=== PATIENT | male | born 1960 | race Caucasian/White ===

== ENCOUNTER 2017-12-28 12:57 | Inpatient (IN) | payer OTHER ==
[2017-12-28 14:05] VITALS: BMI 29.2
--- NOTE | 2017-12-28 16:28 | HP ---
COWS - Scale Resting Pulse: 0= [place] 80 or Below Sweatin=Flushed/Facial Moisture Restless Observation: 0= Sits Still Pupil Size: 0= Normal to Room Light Bone or Joint Aches: 2= Severe Diffuse Aches Runny Nose/ Eye Tearin= Nasal Congestion GI Upset > 30mins: 2= Nausea/Diarrhea Tremor Observation: 1= Tremor [place], Not Seen Yawning Observation: 1= 1-2x During Session Anxiety or Irritability: 1=Feels Anxious/Irritable Goose Flesh Skin: 3=Piloerection COWS Score: 13 [facility]mission [facility] Chief Complaint: Heroin Withdrawal symptoms. Allergies/Adverse Reactions: Allergies Allergy/AdvReac Type Severity Reaction Status Date / Time Penicillins Allergy Unknown Verified 11/12/17 10:45 History of Present Illness: Patient presents for Heroin withdrawal symptoms. Last detox here at [facility] 10/2017. Started using Heroin in past year. Uses up to 10 bags daily. Last time he used was this morning at 5 am. Has history of Hep C and Gerd. Hep C not treated. Reports feeling depressed and anxious. Denies SI/HI and suicide attempts. Exam Limitations: No Limitations - Ebola screening Have you traveled outside of the country in the last 21 days: No Have you had contact with anyone from an Ebola affected area: No Have you been sick,other than usual withdrawal symptoms: No Do you have a fever: No - Review of Systems Constitutional: Night Sweats, Changes in sleep, Weight Stable EENT: reports: Tearing, Nose Congestion Respiratory: reports: No Symptoms reported Cardiac: reports: No Symptoms Reported GI: reports: Diarrhea, Nausea, Poor Fluid Intake, Indigestion, Abdominal cramping : reports: No Symptoms Reported Musculoskeletal: reports: Back Pain, Joint Pain, Muscle Pain Integumentary: reports: Sweating Neuro: reports: Headache, Tremors Endocrine: reports: No Symptoms Reported Hematology: reports: No Symptoms Reported Psychiatric: reports: Orientated x3, Anxious, Depressed Patient History - Patient Medical History Hx Anemia: No Hx Asthma: No Hx Chronic Obstructive Pulmonary Disease (COPD): No Hx Cancer: No Hx Cardiac Disorders: No Hx Congestive Heart Failure: No Hx Hypertension: No Hx Hypercholesterolemia: No Hx Pacemaker: No HX Cerebrovascular Accident: No Hx Seizures: No Hx Dementia: No Hx Diabetes: No Hx Gastrointestinal Disorders: Yes (GERD) Hx Liver Disease: No Hx Genitourinary Disorders: No Hx Sexually Transmitted Disorders: No Hx Renal Disease (ESRD): No Hx Thyroid Disease: No Hx Human Immunodeficiency Virus (HIV): No (Negative, 2018) Hx Hepatitis C: Yes (not treated) Hx Depression: Yes Hx Suicide Attempt: No Hx Bipolar Disorder: No Hx Schizophrenia: No - Patient Surgical History Past Surgical History: Yes Hx Neurologic Surgery: No Hx Cataract Extraction: No Hx Cardiac Surgery: No Hx Lung Surgery: No Hx Breast Surgery: No Hx Breast Biopsy: No Hx Abdominal Surgery: No Hx Appendectomy: No Hx Cholecystectomy: No Hx Genitourinary Surgery: No Hx Orthopedic Surgery: No Other Surgical History: bilateral inguinal hernia repair.IN 2011 [facility] Anesthesia Reaction: No - PPD History Previous Implant?: Yes Documented Results: Negative w/proof Date: 11/14/17 PPD to be Administered?: No - Smoking Cessation Smoking history: Current every day smoker Have you smoked in the past 12 months: Yes Aproximately how many cigarettes per day: 40 Hx Chewing Tobacco Use: No Initiated information on smoking cessation: Yes 'Breaking Loose' booklet given: 12/28/17 - Substance & Tx. History Hx Alcohol Use: No Hx Substance Use: Yes Substance Use Type: Heroin Hx Substance Use Treatment: Yes - Substances Abused Heroin Route: Inhalation Frequency: Daily Amount used: 10 bags Age of first use: 57 Date of Last Use: 12/28/17 Family Disease History - Family Disease History Family Disease History: Diabetes: Mother (), Other: Father (alive, history alcoholism) Admission Physical Exam BHS - Vital Signs Vital Signs: Vital Signs - 24 hr 12/28/17 13:58 Temperature 97.4 F L Pulse Rate 66 Respiratory 20 Rate Blood Pressure 117/69 - Physical General Appearance: Yes: No Apparent Distress, Sweating, Anxious HEENTM: Yes: EOMI, Hearing grossly Normal, Normal ENT Inspection, Normocephalic , Normal Voice, RASHMI, Pharynx Normal, Nasal Congestion Respiratory: Yes: Chest Non-Tender, Lungs Clear, Normal Breath Sounds, No Respiratory Distress, No Accessory Muscle Use Neck: Yes: No masses,lesions,Nodules, Supple, Trachea in good position Breast: Yes: Breast Exam Deferred Cardiology: Yes: Within Normal Limits, Regular Rhythm, Regular Rate, S1, S2 Abdominal: Yes: Within Normal Limits, Normal Bowel Sounds, Non Tender, Soft Genitourinary: Yes: Within Normal Limits Back: Yes: Within Normal Limits, Normal Inspection Musculoskeletal: Yes: full range of Motion, Gait Steady, Back pain, Muscle Pain Extremities: Yes: Normal Capillary Refill, Normal Inspection, Normal Range of Motion, Tremors, Swelling Neurological: Yes: manager spanish II-XII NML intact, Fully Oriented, Alert, Motor Strength 5/5, Normal Response, Depressed Affect Integumentary: Yes: Normal Color, Warm, Moist Lymphatic: Yes: Within Normal Limits Cleared for Admission [facility] - Detox or Rehab [facility] Level of Care: Medically Managed Detox Regimen/Protocol: Methadone [facility] Breath Alcohol Content Breath Alcohol Content: 0 Urine Drug Screen - Results Drug Screen Negative: No Urine Drug Screen Results: OPI-Opiates, BZO-Benzodiazepines, MTD-Methadone, OXY- Oxycodone
[2017-12-28] MEDS ORDERED: LOPERAMIDE HCL 2 MG CAPSULE PO PRN (16:41)
[2017-12-28] MEDS ORDERED: MAGNESIUM CITRATE 300 ML BOTTLE PO PRN (16:41)
[2017-12-28] MEDS ORDERED: MAGNESIUM HYDROX 2400MG/30ML ORAL SUSPENSION 30 ML CUP PO PRN (16:41)
[2017-12-28] MEDS ORDERED: guaiFENesin/D-METHORPHAN HB 10 ML UNIT-DOSE CUPS PO PRN (16:45)
[2017-12-28] MEDS ORDERED: ACETAMINOPHEN 325 MG TABLET (FP) PO PRN (16:45)
[2017-12-28] MEDS ORDERED: MAG HYDROX/AL HYDROX/SIMETH 30 ML UNIT-DOSE CUP PO PRN (16:46)
[2017-12-28] MEDS ORDERED: MENTHOL/PHENOL 1 EACH UD MM PRN (16:47)
[2017-12-28] MEDS ORDERED: P-EPHED 60MG/TRIPROLIDI 2.5MG TABLET PO PRN (16:47)
[2017-12-28] MEDS ORDERED: METHADONE HCL 10 MG TABLET (FOR DETOX USE ONLY) PO ONE ×2 (17:00→23:00)
[2017-12-28] MEDS: diazePAM 5 MG TABLET PO PRN ×2 (18:25→22:27)
[2017-12-28] MEDS: NICOTINE POLACRILEX 2 MG GUM BUC PRN ×2 (18:32→21:18)
[2017-12-28] MEDS ORDERED: MELATONIN 5 MG TABLETS PO PRN (22:00)
[2017-12-28] MEDS: THIAMINE HCL 100 MG TABLET (FP) PO SCH (22:26)
[2017-12-29] MEDS: diazePAM 5 MG TABLET PO PRN ×3 (05:16→22:48)
[2017-12-29] MEDS: NICOTINE POLACRILEX 2 MG GUM BUC PRN ×2 (05:19→13:51)
--- NOTE | 2017-12-29 09:22 | EKG ---
Test Reason : Blood Pressure : / mmHG Vent. Rate : 059 BPM Atrial Rate : 059 BPM P-R Int : 154 ms QRS Dur : 086 ms QT Int : 434 ms P-R-T Axes : 066 042 040 degrees QTc Int : 429 ms SINUS BRADYCARDIA OTHERWISE NORMAL ECG WHEN COMPARED WITH ECG OF 12-NOV-2017 13:14, NO SIGNIFICANT CHANGE WAS FOUND Confirmed by SOLA ORTEZ MD ([id number]) on 12/29/2017 9:22:28 AM Referred By: Confirmed By:SOLA ORTEZ MD
[2017-12-29] MEDS ORDERED: METHADONE HCL 10 MG TABLET (FOR DETOX USE ONLY) PO ONE (10:00)
[2017-12-29 10:11] LABS: URINE APPEARANCE CLEAR; URINE BILIRUBIN NEGATIVE (<2.0 mg/dL); URINE COLOR YELLOW; URINE GLUCOSE (UA) NEGATIVE (NEGATIVE); URINE KETONE NEGATIVE (NEGATIVE); URINE LEUK ESTERASE NEGATIVE (NEGATIVE); URINE NITRITE NEGATIVE (NEGATIVE); URINE PROTEIN NEGATIVE (NEGATIVE); URINE UROBILINOGEN 4.0 E.U/dl mg/dL (0.2-1.0)
[2017-12-29] MEDS: PANTOPRAZOLE 40 MG TABLET (FP) PO SCH (10:17)
[2017-12-29] MEDS: PRENATAL VITAMINS W/ FOLIC ACID TABLET (FP) PO SCH (10:17)
[2017-12-29] MEDS: NICOTINE 21 MG/24 HOURS TOPICAL PATCH TD SCH ×2 (10:18)
[2017-12-29 10:19] LABS: HEMATOCRIT 39.8 % (35.4-49); HEMOGLOBIN 14.2 GM/dL (11.7-16.9); MCH 30.4 pg (25.7-33.7); MCHC 35.8 g/dl (32.0-35.9); MEAN PLT VOLUME 8.4 fl (7.5-11.1); PLATELET COUNT 193 K/MM3 (134-434); RBC 4.68 M/mm3 (4.00-5.60); RDW 12.9 % (11.9-15.9)
[2017-12-29 10:23] LABS: EPI CELLS RARE /HPF (FEW); URINE HYALINE CAST 1 /lpf; URINE MUCUS FEW
[2017-12-29 10:33] LABS: CHLORIDE 106 mmol/L (98-107); POTASSIUM 3.9 mmol/L (3.5-5.1); SODIUM 141 mmol/L (136-145)
[2017-12-29 10:39] LABS: ALBUMIN 3.6 g/dl (3.4-5.0); ALK PHOS 98 U/L (45-117); ANION GAP 5 (8-16); BILIRUBIN,TOTAL 0.9 mg/dL (0.2-1.0); BLOOD UREA NITROGEN 13 mg/dL (7-18); CALCIUM 8.8 mg/dL (8.5-10.1); CO2 30 mmol/L (21-32); CREATININE 0.9 mg/dL (0.7-1.3); GLUCOSE,RANDOM 102 mg/dL (74-106); SGOT/AST 23 U/L (15-37); SGPT/ALT 48 U/L (12-78); TOT PROT 7.1 g/dl (6.4-8.2)
[2017-12-29] MEDS: hydrOXYzine PAMOATE 50 MG CAPSULE (FP) PO PRN (13:51)
[2017-12-29] MEDS ORDERED: CYCLOBENZAPRINE HCL 10 MG TABLET (FP) PO ONE (13:54)
[2017-12-29] MEDS ORDERED: cloNIDine HCL 0.1 MG TABLET PO ONE (13:55)
--- NOTE | 2017-12-29 15:16 | PN ---
S COWS - Scale Resting Pulse: 0= [place] 80 or Below Sweatin= Chills/Flushing Restless Observation: 3= Extraneous Movement Pupil Size: 1= Pupils >than Normal Bone or Joint Aches: 2= Severe Diffuse Aches Runny Nose/ Eye Tearin= Runny Nose/Eyes GI Upset > 30mins: 3= Vomiting/Diarrhea Tremor Observation of Outstretched Hands: 2= Slight Tremor Visible Yawning Observation: 1= 1-2x During Session Anxiety or Irritability: 1=Feels Anxious/Irritable Goose Flesh Skin: 0=Smooth Skin COWS Score: 16 S Progress Note (SOAP) Subjective: ALERT,IRRITABLE,ANXIOUS,INTERRUPTED SLEEP,TREMOR,PAIN IN THE BODY AND BACK Objective: 12/29/17 15:14 Vital Signs Temperature 97.9 F 12/29/17 14:00 Pulse Rate 97 H 12/29/17 14:00 Respiratory Rate 16 12/29/17 14:00 Blood Pressure 100/51 12/29/17 14:00 O2 Sat by Pulse Oximetry (%) EKG SINUS BRADYCARDIA 59/MIN PROLONG QT 434/429 NO CHEST PAIN,NO SOB,NO DIZZINESS Laboratory Last Values WBC 7.0 K/mm3 (4.0-10.0) 12/29/17 08:00 RBC 4.68 M/mm3 (4.00-5.60) 12/29/17 08:00 Hgb 14.2 GM/dL (11.7-16.9) 12/29/17 08:00 Hct 39.8 % (35.4-49) 12/29/17 08:00 MCV 85.0 fl (80-96) 12/29/17 08:00 MCH 30.4 pg (25.7-33.7) 12/29/17 08:00 MCHC 35.8 g/dl (32.0-35.9) 12/29/17 08:00 RDW 12.9 % (11.9-15.9) 12/29/17 08:00 Plt Count 193 K/MM3 (134-434) 12/29/17 08:00 MPV 8.4 fl (7.5-11.1) 12/29/17 08:00 Sodium 141 mmol/L (136-145) 12/29/17 08:00 Potassium 3.9 mmol/L (3.5-5.1) 12/29/17 08:00 Chloride 106 mmol/L (98-107) 12/29/17 08:00 Carbon Dioxide 30 mmol/L (21-32) 12/29/17 08:00 Anion Gap 5 (8-16) L 12/29/17 08:00 BUN 13 mg/dL (7-18) 12/29/17 08:00 Creatinine 0.9 mg/dL (0.7-1.3) 12/29/17 08:00 Creat Clearance w eGFR > 60 (>60) 12/29/17 08:00 Random Glucose 102 mg/dL (74-106) 12/29/17 08:00 Calcium 8.8 mg/dL (8.5-10.1) 12/29/17 08:00 Total Bilirubin 0.9 mg/dL (0.2-1.0) D 12/29/17 08:00 AST 23 U/L (15-37) 12/29/17 08:00 ALT 48 U/L (12-78) D 12/29/17 08:00 Alkaline Phosphatase 98 U/L (45-117) D 12/29/17 08:00 Total Protein 7.1 g/dl (6.4-8.2) 12/29/17 08:00 Albumin 3.6 g/dl (3.4-5.0) 12/29/17 08:00 Urine Color Yellow 12/29/17 08:00 Urine Appearance Clear 12/29/17 08:00 Urine pH 6.0 (5.0-8.0) 12/29/17 08:00 Ur Specific [place] 1.015 (1.001-1.035) 12/29/17 08:00 Urine Protein Negative (NEGATIVE) 12/29/17 08:00 Urine Glucose (UA) Negative (NEGATIVE) 12/29/17 08:00 Urine Ketones Negative (NEGATIVE) 12/29/17 08:00 Urine Blood 1+ (NEGATIVE) H 12/29/17 08:00 Urine Nitrite Negative (NEGATIVE) 12/29/17 08:00 Urine Bilirubin Negative (<2.0 mg/dL) 12/29/17 08:00 Urine Urobilinogen 4.0 e.u/dl mg/dL (0.2-1.0) 12/29/17 08:00 Ur Leukocyte Esterase Negative (NEGATIVE) 12/29/17 08:00 Urine WBC (Auto) 1 /hpf (3-5) 12/29/17 08:00 Urine RBC (Auto) 4 /hpf (0-3) 12/29/17 08:00 Ur Epithelial Cells Rare /HPF (FEW) 12/29/17 08:00 Hyaline Casts 1 /lpf 12/29/17 08:00 Urine Mucus Few 12/29/17 08:00 RPR Titer Nonreactive (NONREACTIVE) 12/29/17 08:00 Assessment: 12/29/17 15:16 WITHDRAWAL SYMPTOM Plan: CONTINUE DETOX
--- NOTE | 2017-12-29 17:54 | CONSULT ---
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 Substance Abuse History: Confirmed by patient in this interview.Details in current [facility] report : Smoking history: Current every day smoker. Have you smoked in the past 12 months: Yes. Aproximately how many cigarettes per day: 40. Hx Chewing Tobacco Use: No. Initiated information on smoking cessation: Yes. 'Breaking Loose' booklet given: 12/28/17. - Substance & Tx. History. Hx Alcohol Use: No. Hx Substance Use: Yes. Substance Use Type: Heroin. Hx Substance Use Treatment: Yes. - Substances Abused. Heroin. Route: Inhalation. Frequency: Daily. Amount used: 10 bags. Age of first use: 57. 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 Psychiatric History: Patient denies. Physical/Sexual Abuse/Trauma History: No reported history of abuse.Heavy stressor : 29 consecutive years in longterm for homicide + 4 additional years for parole violation.Released in 2007 and currently on parole. Additional Comment: Urine Drug Screen Results: OPI-Opiates, BZO-Benzodiazepines , MTD-Methadone, OXY-Oxycodone.Noted. Mental Status Exam - Mental Status Exam Alert and Oriented to: Time, Place, Person Cognitive Function: Good Patient Appearance: Well Groomed Mood: Anxious Affect: Mood Congruent Patient Behavior: Fatigued, Appropriate, Cooperative Speech Pattern: Clear, Appropriate Voice Loudness: Normal Thought Process: Intact, Goal Oriented Thought Disorder: Not Present Hallucinations: Denies Suicidal Ideation: Denies Homicidal Ideation: Denies Insight/Judgement: Poor Sleep: Poorly, Difficulty falling asleep Appetite: Good Muscle strength/Tone: Normal Gait/Station: Normal Psychiatric Findings - Problem List ([place] 1, 2,3) (1) Opioid dependence with withdrawal Current Visit: Yes Status: Acute (2) Nicotine dependence Current Visit: Yes Status: Acute Qualifiers: Nicotine product type: cigarettes Substance use status: in withdrawal Qualified Code(s): F17.213 - Nicotine dependence, cigarettes, with withdrawal (3) Substance induced mood disorder Current Visit: Yes Status: Acute (4) Insomnia Current Visit: No Status: Acute Qualifiers: Insomnia type: unspecified Qualified Code(s): G47.00 - Insomnia, unspecified - Initial Treatment Plan Initial Treatment Plan: Psychoeducation.Sleep hygiene.Detoxification in progress.Medications : trazodone 50 mg po hs + ambien 5 mg po hs prn.Side effects/benefits of both drugs are discussed with the apteint.Mr Burns is made aware of the risk of priapism (trazodone) and parasomnias (sleep-walking) from ambien.Instructed to stop taking trazodone / seek immediate medical attention if erectile phenomena (painful/prolonged erection).Patient is attentive to these instructions and he agrees to follow this careplan.Observation.
[2017-12-29] MEDS: THIAMINE HCL 100 MG TABLET (FP) PO SCH (22:46)
[2017-12-29] MEDS: cloNIDine HCL 0.1 MG TABLET PO SCH (22:47)
[2017-12-29] MEDS: traZODone HCL 50 MG TABLET (FP) PO SCH (22:47)
[2017-12-30] MEDS: diazePAM 5 MG TABLET PO PRN ×4 (04:41→22:32)
[2017-12-30] MEDS: IBUPROFEN 400 MG TABLET (FP) PO PRN ×2 (04:44→17:46)
[2017-12-30] MEDS: CYCLOBENZAPRINE HCL 10 MG TABLET (FP) PO PRN (04:44)
[2017-12-30] MEDS ORDERED: METHADONE HCL 5 MG TABLET (FOR DETOX USE ONLY) PO ONE (10:00)
[2017-12-30] MEDS: cloNIDine HCL 0.1 MG TABLET PO SCH ×2 (10:43→22:32)
[2017-12-30] MEDS: PANTOPRAZOLE 40 MG TABLET (FP) PO SCH (10:43)
[2017-12-30] MEDS: PRENATAL VITAMINS W/ FOLIC ACID TABLET (FP) PO SCH (10:43)
[2017-12-30] MEDS: NICOTINE 21 MG/24 HOURS TOPICAL PATCH TD SCH ×2 (10:48→10:50)
[2017-12-30] MEDS: NICOTINE POLACRILEX 2 MG GUM BUC PRN ×3 (10:50→22:36)
--- NOTE | 2017-12-30 16:28 | PN ---
BHS COWS - Scale Resting Pulse: 0= [place] 80 or Below Sweatin= Chills/Flushing Restless Observation: 3= Extraneous Movement Pupil Size: 1= Pupils >than Normal Bone or Joint Aches: 2= Severe Diffuse Aches Runny Nose/ Eye Tearin= Runny Nose/Eyes GI Upset > 30mins: 2= Nausea/Diarrhea Tremor Observation of Outstretched Hands: 2= Slight Tremor Visible Yawning Observation: 1= 1-2x During Session Anxiety or Irritability: 2=Irritable/Anxious Goose Flesh Skin: 0=Smooth Skin COWS Score: 16 S Progress Note (SOAP) Subjective: Numbness of fingers, tremor, chills, interrupted sleep Objective: 12/30/17 16:26 Last Vital Signs Temp Pulse Resp BP Pulse Ox 97.5 F L 52 L 16 104/64 12/30/17 14:00 12/30/17 14:00 12/30/17 14:00 12/30/17 14:00 Laboratory Tests 12/29/17 12/29/17 12/29/17 08:00 08:00 08:00 WBC 7.0 RBC 4.68 Hgb 14.2 Hct 39.8 MCV 85.0 MCH 30.4 MCHC 35.8 RDW 12.9 Plt Count 193 MPV 8.4 Sodium 141 Potassium 3.9 Chloride 106 Carbon Dioxide 30 Anion Gap 5 L BUN 13 Creatinine 0.9 Creat Clearance w eGFR > 60 Random Glucose 102 Calcium 8.8 Total Bilirubin 0.9 D AST 23 ALT 48 D Alkaline Phosphatase 98 D Total Protein 7.1 Albumin 3.6 Urine Color Urine Appearance Urine pH Ur Specific [place] Urine Protein Urine Glucose (UA) Urine Ketones Urine Blood Urine Nitrite Urine Bilirubin Urine Urobilinogen Ur Leukocyte Esterase Urine WBC (Auto) Urine RBC (Auto) Ur Epithelial Cells Hyaline Casts Urine Mucus RPR Titer Nonreactive 12/29/17 08:00 WBC RBC Hgb Hct MCV MCH MCHC RDW Plt Count MPV Sodium Potassium Chloride Carbon Dioxide Anion Gap BUN Creatinine Creat Clearance w eGFR Random Glucose Calcium Total Bilirubin AST ALT Alkaline Phosphatase Total Protein Albumin Urine Color Yellow Urine Appearance Clear Urine pH 6.0 Ur Specific [place] 1.015 Urine Protein Negative Urine Glucose (UA) Negative Urine Ketones Negative Urine Blood 1+ H Urine Nitrite Negative Urine Bilirubin Negative Urine Urobilinogen 4.0 e.u/dl Ur Leukocyte Esterase Negative Urine WBC (Auto) 1 Urine RBC (Auto) 4 Ur Epithelial Cells Rare Hyaline Casts 1 Urine Mucus Few RPR Titer Labs reviewed: abnormal UA Assessment: 12/30/17 16:27 Withdrawal symptoms Noted with abnormal UA Plan: Continue detox Abnormal UA: encouraged PO hydration (water), repeat UA
[2017-12-30] MEDS: traZODone HCL 50 MG TABLET (FP) PO SCH (22:32)
[2017-12-30] MEDS: THIAMINE HCL 100 MG TABLET (FP) PO SCH (22:32)
[2017-12-30] MEDS: ZOLPIDEM TARTRATE 5 MG TABLET PO PRN (22:35)
[2017-12-31] MEDS: diazePAM 5 MG TABLET PO PRN ×2 (03:01→10:26)
[2017-12-31] MEDS ORDERED: METHADONE HCL 5 MG TABLET (FOR DETOX USE ONLY) PO ONE (10:00)
[2017-12-31] MEDS: cloNIDine HCL 0.1 MG TABLET PO SCH ×2 (10:26→22:08)
[2017-12-31] MEDS: CYCLOBENZAPRINE HCL 10 MG TABLET (FP) PO PRN ×2 (10:26→22:08)
[2017-12-31] MEDS: PANTOPRAZOLE 40 MG TABLET (FP) PO SCH (10:27)
[2017-12-31] MEDS: PRENATAL VITAMINS W/ FOLIC ACID TABLET (FP) PO SCH (10:27)
[2017-12-31] MEDS: NICOTINE 21 MG/24 HOURS TOPICAL PATCH TD SCH ×2 (10:27→10:28)
--- NOTE | 2017-12-31 12:44 | PN ---
BHS Progress Note (SOAP) Subjective: joint pain body ache sweat tremor anxiety restlessness Objective: 12/31/17 12:43 Vital Signs Temperature 98.1 F 12/31/17 10:18 Pulse Rate 58 L 12/31/17 10:18 Respiratory Rate 20 12/31/17 10:18 Blood Pressure 116/59 12/31/17 10:18 O2 Sat by Pulse Oximetry (%) Laboratory Last Values WBC 7.0 K/mm3 (4.0-10.0) 12/29/17 08:00 RBC 4.68 M/mm3 (4.00-5.60) 12/29/17 08:00 Hgb 14.2 GM/dL (11.7-16.9) 12/29/17 08:00 Hct 39.8 % (35.4-49) 12/29/17 08:00 MCV 85.0 fl (80-96) 12/29/17 08:00 MCH 30.4 pg (25.7-33.7) 12/29/17 08:00 MCHC 35.8 g/dl (32.0-35.9) 12/29/17 08:00 RDW 12.9 % (11.9-15.9) 12/29/17 08:00 Plt Count 193 K/MM3 (134-434) 12/29/17 08:00 MPV 8.4 fl (7.5-11.1) 12/29/17 08:00 Sodium 141 mmol/L (136-145) 12/29/17 08:00 Potassium 3.9 mmol/L (3.5-5.1) 12/29/17 08:00 Chloride 106 mmol/L (98-107) 12/29/17 08:00 Carbon Dioxide 30 mmol/L (21-32) 12/29/17 08:00 Anion Gap 5 (8-16) L 12/29/17 08:00 BUN 13 mg/dL (7-18) 12/29/17 08:00 Creatinine 0.9 mg/dL (0.7-1.3) 12/29/17 08:00 Creat Clearance w eGFR > 60 (>60) 12/29/17 08:00 Random Glucose 102 mg/dL (74-106) 12/29/17 08:00 Calcium 8.8 mg/dL (8.5-10.1) 12/29/17 08:00 Total Bilirubin 0.9 mg/dL (0.2-1.0) D 12/29/17 08:00 AST 23 U/L (15-37) 12/29/17 08:00 ALT 48 U/L (12-78) D 12/29/17 08:00 Alkaline Phosphatase 98 U/L (45-117) D 12/29/17 08:00 Total Protein 7.1 g/dl (6.4-8.2) 12/29/17 08:00 Albumin 3.6 g/dl (3.4-5.0) 12/29/17 08:00 Urine Color Yellow 12/29/17 08:00 Urine Appearance Clear 12/29/17 08:00 Urine pH 6.0 (5.0-8.0) 12/29/17 08:00 Ur Specific [place] 1.015 (1.001-1.035) 12/29/17 08:00 Urine Protein Negative (NEGATIVE) 12/29/17 08:00 Urine Glucose (UA) Negative (NEGATIVE) 12/29/17 08:00 Urine Ketones Negative (NEGATIVE) 12/29/17 08:00 Urine Blood 1+ (NEGATIVE) H 12/29/17 08:00 Urine Nitrite Negative (NEGATIVE) 12/29/17 08:00 Urine Bilirubin Negative (<2.0 mg/dL) 12/29/17 08:00 Urine Urobilinogen 4.0 e.u/dl mg/dL (0.2-1.0) 12/29/17 08:00 Ur Leukocyte Esterase Negative (NEGATIVE) 12/29/17 08:00 Urine WBC (Auto) 1 /hpf (3-5) 12/29/17 08:00 Urine RBC (Auto) 4 /hpf (0-3) 12/29/17 08:00 Ur Epithelial Cells Rare /HPF (FEW) 12/29/17 08:00 Hyaline Casts 1 /lpf 12/29/17 08:00 Urine Mucus Few 12/29/17 08:00 RPR Titer Nonreactive (NONREACTIVE) 12/29/17 08:00 lab noted Assessment: 12/31/17 12:43 withdrawal sx Plan: continue detox
[2017-12-31 12:51] LABS: URINE APPEARANCE CLEAR; URINE BILIRUBIN NEGATIVE (<2.0 mg/dL); URINE COLOR YELLOW; URINE GLUCOSE (UA) NEGATIVE (NEGATIVE); URINE KETONE NEGATIVE (NEGATIVE); URINE LEUK ESTERASE NEGATIVE (NEGATIVE); URINE NITRITE NEGATIVE (NEGATIVE); URINE PROTEIN NEGATIVE (NEGATIVE)
[2017-12-31] MEDS: THIAMINE HCL 100 MG TABLET (FP) PO SCH (22:08)
[2017-12-31] MEDS: traZODone HCL 50 MG TABLET (FP) PO SCH (22:08)
[2017-12-31] MEDS: ZOLPIDEM TARTRATE 5 MG TABLET PO PRN (22:08)
[2017-12-31] MEDS: NICOTINE POLACRILEX 2 MG GUM BUC PRN (22:10)
[2017-12-31] MEDS ORDERED: NICOTINE POLACRILEX 2 MG GUM BUC PRN (22:11)
[2017-12-31] MEDS: hydrOXYzine PAMOATE 50 MG CAPSULE (FP) PO PRN (22:42)
--- NOTE | 2018-01-01 09:09 | PN ---
Psychiatric Progress Note Vital Signs: Vital Signs Period Temp Pulse Resp BP Sys/Cazares Pulse Ox Last 24 Hr 97.9 F-98.2 F 51-64 18-20 99-125/57-68 Date of Session: 01/01/18 Chief Complaint:: " I'm having trouble sleeping." HPI: Patient admitted to for opioid dependence. 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 Current Medications: Active Medications Generic Name Dose Route Start Last Admin Trade Name Freq PRN Reason Stop Dose Admin Acetaminophen 650 mg 12/28/17 16:45 Tylenol - PO Q4H PRN FEVER Al Hydroxide/Mg Hydroxide 30 ml 12/28/17 16:46 12/31/17 05:20 Mylanta Oral Suspension - PO 30 ml Q6H PRN Administration DYSPEPSIA Clonidine 0.1 mg 12/29/17 22:00 12/31/17 22:08 Catapres - PO 0.1 mg BID MARZENA Administration Cyclobenzaprine HCl 10 mg 12/29/17 13:54 12/31/17 22:08 Flexeril - PO 10 mg TID PRN Administration MUSCLE SPASMS Eucalyptus/Menthol/Phenol/Sorbitol 1 each 12/28/17 16:47 Cepastat Lozenge - MM Q4H PRN SORE THROAT Guaifenesin 10 ml 12/28/17 16:45 Robitussin Dm - PO Q6H PRN COUGH Hydroxyzine Pamoate 50 mg 12/28/17 16:41 12/31/17 22:42 Vistaril - PO 50 mg Q4H PRN Administration AGITATION Ibuprofen 400 mg 12/28/17 16:45 12/30/17 17:46 Motrin - PO 400 mg Q6H PRN Administration PAIN LEVEL 4-6 Loperamide HCl 4 mg 12/28/17 16:41 Imodium - PO Q6H PRN DIARRHEA Magnesium Citrate 300 ml 12/28/17 16:41 Citroma - PO Q48H PRN CONSTIPATION Magnesium Hydroxide 30 ml 12/28/17 16:41 Milk Of Magnesia - PO DAILY PRN CONSTIPATION Methadone HCl 5 mg 01/02/18 06:00 Dolophine - PO 01/02/18 06:01 ONCE@0600 ONE Methadone HCl 10 mg 01/01/18 10:00 Dolophine - PO 01/01/18 10:01 ONCE ONE Nicotine 21 mg 12/29/17 10:00 12/31/17 10:27 Nicoderm Patch - TD Not Given DAILY MARZENA Nicotine 21 mg 12/29/17 10:00 12/31/17 10:28 Nicoderm Patch - TD 21 mg DAILY MARZENA Administration Nicotine Polacrilex 4 mg 12/31/17 22:11 Nicorette Gum - BUC Q2H PRN NICOTINE REPLACEMENT RX Pantoprazole Sodium 40 mg 12/31/17 10:00 12/31/17 10:27 Protonix - PO 40 mg DAILY MARZNEA Administration Multivit/Folic Acid/Iron 1 tab 12/29/17 10:00 12/31/17 10:27 Vitamins (Sjr) - PO 1 tab DAILY MARZENA Administration Pseudoephedrine/Triprolidine 1 combo 12/28/17 16:47 Actifed - PO TID PRN NASAL CONGESTION Thiamine HCl 100 mg 12/28/17 22:00 12/31/17 22:08 Vitamin B1 - PO 100 mg HS MARZENA Administration Trazodone HCl 100 mg 12/31/17 16:01 12/31/17 22:08 Desyrel - PO 100 mg HS MARZENA Administration Zolpidem Tartrate 5 mg 12/29/17 22:00 12/31/17 22:08 Ambien - PO 5 mg HS PRN Administration INSOMNIA Medication(s) Change(s): Yes. Will increase trazodone to 100mg. Current Side Effect: No Lab tests ordered: No Lab tests reviewed: Yes Provider note:: Motorcycle Racer approached patient concerning psychiatric reconsultation. Pt. reports poor sleep. Chart reviewed. Dr. Levy increased trazodone to 100mg yesterday evening. Medication not to be increased at this time. Pt. satisifed with trazodone 100mg. Benefits and side effects discussed with patient. Pt. made aware of the risk of priapism. Sleep hygiene provided. Will continue to monitor. Total face to face time:: 25 Mental Status Exam - Mental Status Exam Alert and Oriented to: Time, Place, Person Cognitive Function: Good Patient Appearance: Well Groomed Mood: Hopeful Affect: Mood Congruent Patient Behavior: Cooperative Speech Pattern: Appropriate Voice Loudness: Normal Thought Process: Goal Oriented Thought Disorder: Not Present Hallucinations: Denies Suicidal Ideation: Denies Homicidal Ideation: Denies Insight/Judgement: Poor Sleep: Poorly Appetite: Fair Muscle strength/Tone: Normal Gait/Station: Normal Psychiatric Treatment Plan - Problem List (1) Insomnia Current Visit: Yes Qualifiers: Insomnia type: unspecified Qualified Code(s): G47.00 - Insomnia, unspecified (2) Opioid dependence with withdrawal Current Visit: Yes (3) Substance induced mood disorder Current Visit: Yes (4) Nicotine dependence Current Visit: Yes Qualifiers: Nicotine product type: cigarettes Substance use status: in withdrawal Qualified Code(s): F17.213 - Nicotine dependence, cigarettes, with withdrawal
[2018-01-01] MEDS ORDERED: METHADONE HCL 10 MG TABLET (FOR DETOX USE ONLY) PO ONE (10:00)
[2018-01-01] MEDS: cloNIDine HCL 0.1 MG TABLET PO SCH ×2 (10:16→22:20)
[2018-01-01] MEDS: NICOTINE 21 MG/24 HOURS TOPICAL PATCH TD SCH ×2 (10:16→10:17)
[2018-01-01] MEDS: PRENATAL VITAMINS W/ FOLIC ACID TABLET (FP) PO SCH (10:16)
[2018-01-01] MEDS: PANTOPRAZOLE 40 MG TABLET (FP) PO SCH (10:16)
--- NOTE | 2018-01-01 11:38 | PN ---
BHS Progress Note (SOAP) Subjective: feeling better no tremor less sweat tolerated food and fluid well denies body ache Objective: 01/01/18 11:37 Vital Signs Temperature 98.1 F 01/01/18 08:57 Pulse Rate 51 L 01/01/18 08:57 Respiratory Rate 18 01/01/18 08:57 Blood Pressure 125/67 01/01/18 08:57 O2 Sat by Pulse Oximetry (%) Laboratory Tests 12/29/17 12/29/17 12/29/17 08:00 08:00 08:00 WBC 7.0 RBC 4.68 Hgb 14.2 Hct 39.8 MCV 85.0 MCH 30.4 MCHC 35.8 RDW 12.9 Plt Count 193 MPV 8.4 Sodium 141 Potassium 3.9 Chloride 106 Carbon Dioxide 30 Anion Gap 5 L BUN 13 Creatinine 0.9 Creat Clearance w eGFR > 60 Random Glucose 102 Calcium 8.8 Total Bilirubin 0.9 D AST 23 ALT 48 D Alkaline Phosphatase 98 D Total Protein 7.1 Albumin 3.6 Urine Color Urine Appearance Urine pH Ur Specific [place] Urine Protein Urine Glucose (UA) Urine Ketones Urine Blood Urine Nitrite Urine Bilirubin Urine Urobilinogen Ur Leukocyte Esterase Urine WBC (Auto) Urine RBC (Auto) Ur Epithelial Cells Hyaline Casts Urine Mucus RPR Titer Nonreactive 12/29/17 12/31/17 08:00 10:35 WBC RBC Hgb Hct MCV MCH MCHC RDW Plt Count MPV Sodium Potassium Chloride Carbon Dioxide Anion Gap BUN Creatinine Creat Clearance w eGFR Random Glucose Calcium Total Bilirubin AST ALT Alkaline Phosphatase Total Protein Albumin Urine Color Yellow Yellow Urine Appearance Clear Clear Urine pH 6.0 5.0 Ur Specific [place] 1.015 1.017 Urine Protein Negative Negative Urine Glucose (UA) Negative Negative Urine Ketones Negative Negative Urine Blood 1+ H Negative Urine Nitrite Negative Negative Urine Bilirubin Negative Negative Urine Urobilinogen 4.0 e.u/dl 2.0 Ur Leukocyte Esterase Negative Negative Urine WBC (Auto) 1 Urine RBC (Auto) 4 Ur Epithelial Cells Rare Hyaline Casts 1 Urine Mucus Few RPR Titer lab noted Assessment: 01/01/18 11:38 mild withdrawal sx Plan: medically supervised detox
[2018-01-01] MEDS: THIAMINE HCL 100 MG TABLET (FP) PO SCH (22:17)
[2018-01-01] MEDS: CYCLOBENZAPRINE HCL 10 MG TABLET (FP) PO PRN (22:18)
[2018-01-01] MEDS: ZOLPIDEM TARTRATE 5 MG TABLET PO PRN (22:18)
[2018-01-01] MEDS: traZODone HCL 50 MG TABLET (FP) PO SCH (22:18)
[2018-01-01 22:55] VITALS: TEMP 98.2
[2018-01-02] MEDS: CYCLOBENZAPRINE HCL 10 MG TABLET (FP) PO PRN (05:19)
[2018-01-02] MEDS: IBUPROFEN 400 MG TABLET (FP) PO PRN (05:19)
[2018-01-02] MEDS ORDERED: METHADONE HCL 5 MG TABLET (FOR DETOX USE ONLY) PO ONE (06:00)
[2018-01-02 06:31] VITALS: BP 101/55; PULSE 52
[2018-01-02] MEDS: hydrOXYzine PAMOATE 50 MG CAPSULE (FP) PO PRN (08:58)
--- NOTE | 2018-01-02 09:05 | DS ---
[facility] Detox Discharge Summary Admission Date: 12/28/17 Discharge Date: 01/02/18 - History Present History: Opioid Dependence Additional Comments: 57 years old male admitted on 12/28/17 for opioid withdrawal sx completed detox regimen tolerated well denies opioid withdrawal sx alert oriented x 3 no acute distress acknowledged aftercare [facility] for medical and addiction and psychosocial treatment modalities - Physical Exam Results Vital Signs: Vital Signs Temperature 98.2 F 01/02/18 06:00 Pulse Rate 52 L 01/02/18 06:00 Respiratory Rate 18 01/02/18 06:00 Blood Pressure 101/55 01/02/18 06:00 O2 Sat by Pulse Oximetry (%) Pertinent Admission Physical Exam Findings: withdrawal sx Vital Signs Temperature 98.2 F 01/02/18 06:00 Pulse Rate 52 L 01/02/18 06:00 Respiratory Rate 18 01/02/18 06:00 Blood Pressure 101/55 01/02/18 06:00 O2 Sat by Pulse Oximetry (%) Laboratory Last Values WBC 7.0 K/mm3 (4.0-10.0) 12/29/17 08:00 RBC 4.68 M/mm3 (4.00-5.60) 12/29/17 08:00 Hgb 14.2 GM/dL (11.7-16.9) 12/29/17 08:00 Hct 39.8 % (35.4-49) 12/29/17 08:00 MCV 85.0 fl (80-96) 12/29/17 08:00 MCH 30.4 pg (25.7-33.7) 12/29/17 08:00 MCHC 35.8 g/dl (32.0-35.9) 12/29/17 08:00 RDW 12.9 % (11.9-15.9) 12/29/17 08:00 Plt Count 193 K/MM3 (134-434) 12/29/17 08:00 MPV 8.4 fl (7.5-11.1) 12/29/17 08:00 Sodium 141 mmol/L (136-145) 12/29/17 08:00 Potassium 3.9 mmol/L (3.5-5.1) 12/29/17 08:00 Chloride 106 mmol/L (98-107) 12/29/17 08:00 Carbon Dioxide 30 mmol/L (21-32) 12/29/17 08:00 Anion Gap 5 (8-16) L 12/29/17 08:00 BUN 13 mg/dL (7-18) 12/29/17 08:00 Creatinine 0.9 mg/dL (0.7-1.3) 12/29/17 08:00 Creat Clearance w eGFR > 60 (>60) 12/29/17 08:00 Random Glucose 102 mg/dL (74-106) 12/29/17 08:00 Calcium 8.8 mg/dL (8.5-10.1) 12/29/17 08:00 Total Bilirubin 0.9 mg/dL (0.2-1.0) D 12/29/17 08:00 AST 23 U/L (15-37) 12/29/17 08:00 ALT 48 U/L (12-78) D 12/29/17 08:00 Alkaline Phosphatase 98 U/L (45-117) D 12/29/17 08:00 Total Protein 7.1 g/dl (6.4-8.2) 12/29/17 08:00 Albumin 3.6 g/dl (3.4-5.0) 12/29/17 08:00 Urine Color Yellow 12/31/17 10:35 Urine Appearance Clear 12/31/17 10:35 Urine pH 5.0 (5.0-8.0) 12/31/17 10:35 Ur Specific [place] 1.017 (1.001-1.035) 12/31/17 10:35 Urine Protein Negative (NEGATIVE) 12/31/17 10:35 Urine Glucose (UA) Negative (NEGATIVE) 12/31/17 10:35 Urine Ketones Negative (NEGATIVE) 12/31/17 10:35 Urine Blood Negative (NEGATIVE) 12/31/17 10:35 Urine Nitrite Negative (NEGATIVE) 12/31/17 10:35 Urine Bilirubin Negative (<2.0 mg/dL) 12/31/17 10:35 Urine Urobilinogen 2.0 mg/dL (0.2-1.0) 12/31/17 10:35 Ur Leukocyte Esterase Negative (NEGATIVE) 12/31/17 10:35 Urine WBC (Auto) 1 /hpf (3-5) 12/29/17 08:00 Urine RBC (Auto) 4 /hpf (0-3) 12/29/17 08:00 Ur Epithelial Cells Rare /HPF (FEW) 12/29/17 08:00 Hyaline Casts 1 /lpf 12/29/17 08:00 Urine Mucus Few 12/29/17 08:00 RPR Titer Nonreactive (NONREACTIVE) 12/29/17 08:00 lab noted - Treatment Hospital Course: Detox Protocol Followed, Detoxed Safely, Responded well, Discharged Condition Good, Rehab Referral Accepted Patient has Accepted a Rehab Referral to: [facility] - Medication Discharge Medications: Ambulatory Orders Esomeprazole Magnesium [Nexium 24Hr] 40 mg PO DAILY 11/12/17 - Diagnosis (1) Opioid dependence with withdrawal Current Visit: Yes Status: Acute (2) GERD (gastroesophageal reflux disease) Current Visit: Yes Status: Chronic Qualifiers: Esophagitis presence: esophagitis presence not specified Qualified Code(s) : K21.9 - Gastro-esophageal reflux disease without esophagitis (3) Hepatitis C Current Visit: Yes Status: Chronic Qualifiers: Viral hepatitis chronicity: chronic (4) Nicotine dependence Current Visit: Yes Status: Acute Qualifiers: Nicotine product type: cigarettes Substance use status: in withdrawal Qualified Code(s): F17.213 - Nicotine dependence, cigarettes, with withdrawal - AMA Did Patient Leave Against Medical Advice: No
== END 2018-01-02 09:03 | disposition home or self-care (01) | DRG 773 ==
LOC: YASAS 12:57 → Y6N 16:46
PROVIDERS: ADMIT Surgery; ATTEND Surgery
PROC: HZ2ZZZZ Detoxification Services for Substance Abuse Treatment (ICD-10-PCS; principal; 2017-12-28)
DX: F11.23 Opioid dependence with withdrawal (principal); F17.213 Nicotine dependence, cigarettes, with withdrawal; F19.24 Other psychoactive substance dependence with psychoactive substance-induced mood disorder; K21.9 Gastro-esophageal reflux disease without esophagitis; B18.2 Chronic viral hepatitis C; G47.00 Insomnia, unspecified; R82.90 Unspecified abnormal findings in urine; R00.1 Bradycardia, unspecified; I45.81 Long QT syndrome; Z88.0 Allergy status to penicillin
CPT/HCPCS: 36415; 80053; 81003; 81015; 85027; 86593; 93005; 93010; J0735

== ENCOUNTER 2020-12-16 09:44 | Emergency (ER) | payer OTHER ==
[2020-12-16 10:03] VITALS: BP 152/72; PULSE 71; TEMP 98.2; BMI 25.8
[2020-12-16] MEDS ORDERED: METHADONE HCL 10 MG TABLET PO ONE (10:32)
[2020-12-16] MEDS ORDERED: METHADONE HCL 40 MG DISPERSABLE TABLET ONE (10:40)
[2020-12-16] MEDS ORDERED: METHADONE HCL 10 MG TABLET ONE (10:40)
[2020-12-16] MEDS ORDERED: KETOROLAC TROMETHAMINE 60 MG/2 ML VIAL IM ONE (11:01)
[2020-12-16] MEDS ORDERED: KETOROLAC TROMETHAMINE 60 MG/2 ML VIAL ONE (11:09)
== END 2020-12-16 11:48 | disposition home or self-care (01) ==
LOC: JER 09:44
PROC: 3E0233Z Introduction of Anti-inflammatory into Muscle, Percutaneous Approach (ICD-10-PCS; principal; 2020-12-16)
DX: M54.5 Low back pain (principal)
CPT/HCPCS: 72100-TC-FY; 99284-25

== ENCOUNTER 2021-09-23 04:05 | Day surgery (SDC) | payer OTHER ==
[2021-09-09 15:23] VITALS: BMI 28.3
[2021-09-23] MEDS ORDERED: DEXAMETHASONE SOD PHOSPHATE 10 MG/1 ML VIAL ONE (07:32)
[2021-09-23] MEDS ORDERED: LIDOCAINE HCL/PF 1% SDV 5ML VIAL ONE (07:32)
[2021-09-23] MEDS ORDERED: LIDOCAINE HCL/EPINEPHRINE/PF 10 ML VIAL NR ONE (09:30)
[2021-09-23] MEDS ORDERED: IOHEXOL 180 MG/1 ML ML IJ ONE (09:30)
[2021-09-23] MEDS ORDERED: DEXAMETHASONE SOD PHOSPHATE 10 MG/1 ML VIAL IVPUSH ONE (09:30)
[2021-09-23] MEDS ORDERED: ACETAMINOPHEN 325 MG TABLET (FP) ONE (10:03)
[2021-09-23 10:29] VITALS: BP 137/73; PULSE 72; TEMP 97.7
== END 2021-09-23 10:20 | disposition home or self-care (01) ==
LOC: JASU-SURG 04:05
PROVIDERS: ATTEND Pain Medicine Pain Medicine
PROC: 3E0R33Z Introduction of Anti-inflammatory into Spinal Canal, Percutaneous Approach (ICD-10-PCS; 2021-09-23)
PROC: 3E0R3BZ Introduction of Anesthetic Agent into Spinal Canal, Percutaneous Approach (ICD-10-PCS; principal; 2021-09-23 09:00)
DX: M48.061 Spinal stenosis, lumbar region without neurogenic claudication (principal); M54.16 Radiculopathy, lumbar region
CPT/HCPCS: 76000-TC-FY; J1100

== ENCOUNTER 2022-11-14 07:58 | Emergency (ER) | payer OTHER ==
[2022-11-14 08:06] VITALS: BMI 23.1
[2022-11-14 08:08] VITALS: BP 153/82; PULSE 99; RESP 18; TEMP 97.8
== END 2022-11-14 08:16 | disposition left against medical advice (07) ==
LOC: JER 07:58
DX: R11.2 Nausea with vomiting, unspecified (principal)
CPT/HCPCS: 99281-25

== ENCOUNTER 2022-11-16 09:06 | Inpatient (IN) | payer OTHER ==
[2022-11-16 09:26] VITALS: BMI 21.5
[2022-11-16] MEDS ORDERED: guaiFENesin 600 MG TABLET.ER (FP) PO PRN (09:58)
[2022-11-16] MEDS ORDERED: NALOXONE HCL 0.4 MG/ML VIAL IM PRN (09:58)
[2022-11-16] MEDS ORDERED: LOPERAMIDE HCL 2 MG CAPSULE PO PRN (09:58)
[2022-11-16] MEDS ORDERED: POLYETHYLENE GLYCOL (HEALTHYLAX) 3350 17 GM PACKET PO PRN (09:58)
[2022-11-16] MEDS ORDERED: MAG HYDROX/AL HYDROX/SIMETH 30 ML UNIT-DOSE CUP PO PRN (09:58)
[2022-11-16] MEDS ORDERED: BENZOCAINE/MENTHOL (CHLORASEPTIC ) LOZENGE MM PRN (09:58)
[2022-11-16] MEDS ORDERED: ACETAMINOPHEN 325 MG TABLET (FP) PO PRN (09:58)
[2022-11-16] MEDS ORDERED: BENZONATATE 200 MG CAPSULE PO PRN (09:58)
[2022-11-16] MEDS ORDERED: MAGNESIUM HYDROX 2400MG/30ML ORAL SUSPENSION 30 ML CUP PO PRN (09:58)
[2022-11-16] MEDS ORDERED: NALOXONE HCL (KLOXXADO) 8 MG SPRAY NS PRN (09:58)
[2022-11-16] MEDS ORDERED: NICOTINE 14 MG/24 HOURS TOPICAL PATCH TD SCH (10:00)
[2022-11-16] MEDS ORDERED: METHYL SALICYLATE/MENTHOL OINT 30 GM TUBE TP PRN (10:04)
[2022-11-16] MEDS: FLUTICASONE PROP 0.05% 16 GM NASAL SPRAY NS SCH ×2 (14:52→21:31)
[2022-11-16] MEDS: PRENATAL VITAMINS W/ FOLIC ACID TABLET (FP) PO SCH (14:52)
[2022-11-16] MEDS ORDERED: NICOTINE 21 MG/24 HOURS TOPICAL PATCH TD PRN (15:23)
[2022-11-16] MEDS ORDERED: NICOTINE 14 MG/24 HOURS TOPICAL PATCH TD PRN ×2 (15:24→15:25)
[2022-11-16] MEDS ORDERED: TUBERCULIN PPD 5 TU/0.1ML VIAL ID ONE ×2 (15:30→15:45)
[2022-11-16 15:53] LABS: HEMATOCRIT 35.2 % (35.4-49); HEMOGLOBIN 12.5 GM/dL (11.7-16.9); MCH 29.3 pg (25.7-33.7); MCHC 35.4 g/dl (32.0-35.9); MEAN CELL VOLUME 82.7 fl (80-96); MEAN PLT VOLUME 8.5 fl (7.5-11.1); PLATELET COUNT 167 10^3/uL (134-434); RBC 4.26 M/mm3 (4.00-5.60); RDW 13.7 % (11.9-15.9); WHITE BLOOD COUNT 5.6 K/mm3 (4.0-10.0)
[2022-11-16 16:29] LABS: CALCIUM 8.8 mg/dL (8.5-10.1)
[2022-11-16 16:30] LABS: ALBUMIN 3.7 g/dl (3.4-5.0); BLOOD UREA NITROGEN 26.6 mg/dL (7-18)
[2022-11-16 16:33] LABS: CREATININE 1.2 mg/dL (0.55-1.3)
[2022-11-16 16:34] LABS: BILIRUBIN,TOTAL 0.9 mg/dL (0.2-1); TOT PROT 7.4 g/dl (6.4-8.2)
[2022-11-16 16:46] LABS: SYPHILIS W/ RPR CONF NON-REACTIVE (NONREACTIVE)
[2022-11-16] MEDS: BACITRACIN 0.9 GM PACKET TP SCH (21:31)
[2022-11-16] MEDS: THIAMINE HCL 100 MG TABLET (FP) PO SCH (21:31)
[2022-11-16] MEDS: ATORVASTATIN CA 40 MG TABLET (FP) PO SCH (21:31)
[2022-11-16] MEDS ORDERED: MELATONIN 5 MG TABLETS PO SCH (22:00)
[2022-11-17] MEDS: IBUPROFEN 600 MG TABLET (FP) PO PRN (01:38)
[2022-11-17] MEDS: hydrOXYzine PAMOATE 25 MG CAPSULE (FP) PO PRN (06:17)
[2022-11-17] MEDS ORDERED: methaDONE HCL 40 MG DISPERSABLE TABLET PO SCH (10:00)
[2022-11-17] MEDS: PRENATAL VITAMINS W/ FOLIC ACID TABLET (FP) PO SCH (10:36)
[2022-11-17] MEDS: HYDROCHLOROTHIAZIDE 25 MG TABLET (FP) PO SCH (10:36)
[2022-11-17] MEDS: POTASSIUM CHLORIDE TABS 20 MEQ TABLET.ER (FP) PO SCH ×2 (10:37→17:41)
[2022-11-17] MEDS: FLUTICASONE PROP 0.05% 16 GM NASAL SPRAY NS SCH ×2 (10:38→21:21)
[2022-11-17] MEDS: BACITRACIN 0.9 GM PACKET TP SCH ×2 (10:39→21:23)
[2022-11-17 14:32] LABS: EPI CELLS 13 /uL (0-25.1); HYALINE CASTS 1 /uL (0-3.1); PH,URINE 5.5 (5.0-8.0); URINE APPEARANCE CLOUDY; URINE BACTERIA 2 /uL (0-1359); URINE BILIRUBIN 1+ (NEGATIVE); URINE COLOR DK YELLOW; URINE GLUCOSE (UA) NEGATIVE (NEGATIVE); URINE KETONE TRACE (NEGATIVE); URINE LEUK ESTERASE NEGATIVE (NEGATIVE); URINE NITRITE NEGATIVE (NEGATIVE); URINE PROTEIN 1+ (NEGATIVE); URINE RBC 54 /uL (0-23.9); URINE WBC 6 /uL (0-25.8)
[2022-11-17] MEDS: ATORVASTATIN CA 40 MG TABLET (FP) PO SCH (21:20)
[2022-11-17] MEDS: THIAMINE HCL 100 MG TABLET (FP) PO SCH (21:20)
[2022-11-17] MEDS: MIRTAZAPINE 15 MG TABLET (FP) PO SCH (21:22)
[2022-11-18] MEDS: BACITRACIN 0.9 GM PACKET TP SCH ×2 (10:03→21:29)
[2022-11-18] MEDS: HYDROCHLOROTHIAZIDE 25 MG TABLET (FP) PO SCH (10:04)
[2022-11-18] MEDS: POTASSIUM CHLORIDE TABS 20 MEQ TABLET.ER (FP) PO SCH ×2 (10:04→18:25)
[2022-11-18] MEDS: PRENATAL VITAMINS W/ FOLIC ACID TABLET (FP) PO SCH (10:04)
[2022-11-18] MEDS: FLUTICASONE PROP 0.05% 16 GM NASAL SPRAY NS SCH ×2 (10:04→21:30)
[2022-11-18] MEDS: PANTOPRAZOLE 40 MG TABLET PO SCH (11:38)
[2022-11-18] MEDS: IBUPROFEN 600 MG TABLET (FP) PO PRN (11:51)
[2022-11-18] MEDS: ATORVASTATIN CA 40 MG TABLET (FP) PO SCH (21:28)
[2022-11-18] MEDS: MIRTAZAPINE 15 MG TABLET (FP) PO SCH (21:28)
[2022-11-18] MEDS: THIAMINE HCL 100 MG TABLET (FP) PO SCH (21:28)
[2022-11-19] MEDS: IBUPROFEN 400 MG TABLET (FP) PO PRN (03:30)
[2022-11-19] MEDS: PRENATAL VITAMINS W/ FOLIC ACID TABLET (FP) PO SCH (10:08)
[2022-11-19] MEDS: PANTOPRAZOLE 40 MG TABLET PO SCH (10:09)
[2022-11-19] MEDS: FLUTICASONE PROP 0.05% 16 GM NASAL SPRAY NS SCH ×2 (10:09→21:08)
[2022-11-19] MEDS: BACITRACIN 0.9 GM PACKET TP SCH ×2 (10:09→21:08)
[2022-11-19] MEDS: POTASSIUM CHLORIDE TABS 20 MEQ TABLET.ER (FP) PO SCH ×2 (10:09→17:16)
[2022-11-19] MEDS: HYDROCHLOROTHIAZIDE 25 MG TABLET (FP) PO SCH (10:10)
[2022-11-19] MEDS: NICOTINE 21 MG/24 HOURS TOPICAL PATCH TD PRN (14:04)
[2022-11-19] MEDS: NICOTINE 10 MG CARTRIDGE (INHALER) IH PRN (16:40)
[2022-11-19] MEDS: THIAMINE HCL 100 MG TABLET (FP) PO SCH (21:07)
[2022-11-19] MEDS: ATORVASTATIN CA 40 MG TABLET (FP) PO SCH (21:07)
[2022-11-19] MEDS: MIRTAZAPINE 15 MG TABLET (FP) PO SCH (21:07)
[2022-11-20] MEDS: HYDROCHLOROTHIAZIDE 25 MG TABLET (FP) PO SCH (10:15)
[2022-11-20] MEDS: PANTOPRAZOLE 40 MG TABLET PO SCH (10:15)
[2022-11-20] MEDS ORDERED: POTASSIUM CHLORIDE TABS 20 MEQ TABLET.ER (FP) PO SCH (10:15)
[2022-11-20] MEDS: BACITRACIN 0.9 GM PACKET TP SCH ×2 (10:16→21:19)
[2022-11-20] MEDS: PRENATAL VITAMINS W/ FOLIC ACID TABLET (FP) PO SCH (10:16)
[2022-11-20] MEDS: FLUTICASONE PROP 0.05% 16 GM NASAL SPRAY NS SCH ×2 (10:16→21:21)
[2022-11-20] MEDS ORDERED: POTASSIUM CHLORIDE TABS 20 MEQ TABLET.ER (FP) PO ONE (10:17)
[2022-11-20] MEDS: ERGOCALCIFEROL (VIT D2) 50,000 UNIT (1.25 MG) CAPSULE PO SCH (12:20)
[2022-11-20] MEDS: NICOTINE 10 MG CARTRIDGE (INHALER) IH PRN (16:03)
[2022-11-20] MEDS: MIRTAZAPINE 15 MG TABLET (FP) PO SCH (21:20)
[2022-11-20] MEDS: ATORVASTATIN CA 40 MG TABLET (FP) PO SCH (21:20)
[2022-11-20] MEDS: THIAMINE HCL 100 MG TABLET (FP) PO SCH (21:20)
[2022-11-21] MEDS ORDERED: methaDONE HCL 40 MG DISPERSABLE TABLET PO SCH (06:00)
[2022-11-21] MEDS: NICOTINE 21 MG/24 HOURS TOPICAL PATCH TD PRN (06:24)
[2022-11-21] MEDS: FLUTICASONE PROP 0.05% 16 GM NASAL SPRAY NS SCH ×2 (10:01→21:35)
[2022-11-21] MEDS: BACITRACIN 0.9 GM PACKET TP SCH ×2 (10:01→21:35)
[2022-11-21] MEDS: PANTOPRAZOLE 40 MG TABLET PO SCH (10:02)
[2022-11-21] MEDS: HYDROCHLOROTHIAZIDE 25 MG TABLET (FP) PO SCH ×2 (10:02→10:04)
[2022-11-21] MEDS: PRENATAL VITAMINS W/ FOLIC ACID TABLET (FP) PO SCH (10:02)
[2022-11-21 12:20] LABS: CALCIUM 9.2 mg/dL (8.5-10.1)
[2022-11-21 12:21] LABS: ALBUMIN 3.4 g/dl (3.4-5.0); BLOOD UREA NITROGEN 23.1 mg/dL (7-18)
[2022-11-21 12:25] LABS: BILIRUBIN,TOTAL 0.5 mg/dL (0.2-1); TOT PROT 6.9 g/dl (6.4-8.2)
[2022-11-21] MEDS: THIAMINE HCL 100 MG TABLET (FP) PO SCH (21:34)
[2022-11-21] MEDS: MIRTAZAPINE 15 MG TABLET (FP) PO SCH (21:34)
[2022-11-21] MEDS: ATORVASTATIN CA 40 MG TABLET (FP) PO SCH (21:34)
[2022-11-22] MEDS: NICOTINE 10 MG CARTRIDGE (INHALER) IH PRN ×2 (06:20→21:28)
[2022-11-22] MEDS: BACITRACIN 0.9 GM PACKET TP SCH ×2 (09:43→21:11)
[2022-11-22] MEDS: PANTOPRAZOLE 40 MG TABLET PO SCH (09:43)
[2022-11-22] MEDS: PRENATAL VITAMINS W/ FOLIC ACID TABLET (FP) PO SCH (09:43)
[2022-11-22] MEDS: FLUTICASONE PROP 0.05% 16 GM NASAL SPRAY NS SCH ×2 (09:43→21:12)
[2022-11-22] MEDS: THIAMINE HCL 100 MG TABLET (FP) PO SCH (21:11)
[2022-11-22] MEDS: ATORVASTATIN CA 40 MG TABLET (FP) PO SCH (21:11)
[2022-11-22] MEDS: MIRTAZAPINE 15 MG TABLET (FP) PO SCH (21:11)
[2022-11-23] MEDS: FLUTICASONE PROP 0.05% 16 GM NASAL SPRAY NS SCH ×2 (10:03→21:28)
[2022-11-23] MEDS: BACITRACIN 0.9 GM PACKET TP SCH ×2 (10:03→21:28)
[2022-11-23] MEDS: PANTOPRAZOLE 40 MG TABLET PO SCH (10:04)
[2022-11-23] MEDS: PRENATAL VITAMINS W/ FOLIC ACID TABLET (FP) PO SCH (10:04)
[2022-11-23] MEDS: ATORVASTATIN CA 40 MG TABLET (FP) PO SCH (21:27)
[2022-11-23] MEDS: THIAMINE HCL 100 MG TABLET (FP) PO SCH (21:27)
[2022-11-23] MEDS: MIRTAZAPINE 15 MG TABLET (FP) PO SCH (21:27)
[2022-11-23] MEDS: NICOTINE 10 MG CARTRIDGE (INHALER) IH PRN (21:29)
[2022-11-23] MEDS: IBUPROFEN 400 MG TABLET (FP) PO PRN (23:51)
[2022-11-24] MEDS: PANTOPRAZOLE 40 MG TABLET PO SCH (09:37)
[2022-11-24] MEDS: PRENATAL VITAMINS W/ FOLIC ACID TABLET (FP) PO SCH (09:37)
[2022-11-24] MEDS: NICOTINE 21 MG/24 HOURS TOPICAL PATCH TD PRN (09:38)
[2022-11-24] MEDS: FLUTICASONE PROP 0.05% 16 GM NASAL SPRAY NS SCH ×2 (09:38→21:21)
[2022-11-24] MEDS: ATORVASTATIN CA 40 MG TABLET (FP) PO SCH (21:20)
[2022-11-24] MEDS: THIAMINE HCL 100 MG TABLET (FP) PO SCH (21:20)
[2022-11-24] MEDS: MIRTAZAPINE 15 MG TABLET (FP) PO SCH (21:20)
[2022-11-24] MEDS: NICOTINE 10 MG CARTRIDGE (INHALER) IH PRN (21:21)
[2022-11-25] MEDS: NICOTINE 21 MG/24 HOURS TOPICAL PATCH TD PRN (06:08)
[2022-11-25] MEDS: FLUTICASONE PROP 0.05% 16 GM NASAL SPRAY NS SCH ×2 (09:58→22:03)
[2022-11-25] MEDS: PRENATAL VITAMINS W/ FOLIC ACID TABLET (FP) PO SCH (09:58)
[2022-11-25] MEDS: PANTOPRAZOLE 40 MG TABLET PO SCH (09:59)
[2022-11-25] MEDS: NICOTINE 10 MG CARTRIDGE (INHALER) IH PRN ×2 (13:31→22:01)
[2022-11-25] MEDS: MIRTAZAPINE 15 MG TABLET (FP) PO SCH (21:59)
[2022-11-25] MEDS: ATORVASTATIN CA 40 MG TABLET (FP) PO SCH (22:02)
[2022-11-25] MEDS: THIAMINE HCL 100 MG TABLET (FP) PO SCH (22:03)
[2022-11-25] MEDS: IBUPROFEN 600 MG TABLET (FP) PO PRN (22:30)
[2022-11-26] MEDS: NICOTINE 21 MG/24 HOURS TOPICAL PATCH TD PRN (06:31)
[2022-11-26] MEDS: hydrOXYzine PAMOATE 25 MG CAPSULE (FP) PO PRN ×2 (06:31→21:19)
[2022-11-26] MEDS: NICOTINE 10 MG CARTRIDGE (INHALER) IH PRN ×3 (06:37→21:19)
[2022-11-26] MEDS: PRENATAL VITAMINS W/ FOLIC ACID TABLET (FP) PO SCH (09:49)
[2022-11-26] MEDS: FLUTICASONE PROP 0.05% 16 GM NASAL SPRAY NS SCH ×2 (09:49→21:18)
[2022-11-26] MEDS: PANTOPRAZOLE 40 MG TABLET PO SCH (09:49)
[2022-11-26] MEDS: ATORVASTATIN CA 40 MG TABLET (FP) PO SCH (21:18)
[2022-11-26] MEDS: THIAMINE HCL 100 MG TABLET (FP) PO SCH (21:18)
[2022-11-26] MEDS: MIRTAZAPINE 15 MG TABLET (FP) PO SCH (21:18)
[2022-11-26] MEDS: IBUPROFEN 600 MG TABLET (FP) PO PRN (21:19)
[2022-11-27] MEDS: NICOTINE 10 MG CARTRIDGE (INHALER) IH PRN ×3 (06:03→21:27)
[2022-11-27] MEDS: NICOTINE 21 MG/24 HOURS TOPICAL PATCH TD PRN (06:03)
[2022-11-27] MEDS: ERGOCALCIFEROL (VIT D2) 50,000 UNIT (1.25 MG) CAPSULE PO SCH (09:41)
[2022-11-27] MEDS: PRENATAL VITAMINS W/ FOLIC ACID TABLET (FP) PO SCH (09:41)
[2022-11-27] MEDS: FLUTICASONE PROP 0.05% 16 GM NASAL SPRAY NS SCH ×2 (09:41→21:27)
[2022-11-27] MEDS: PANTOPRAZOLE 40 MG TABLET PO SCH (09:41)
[2022-11-27] MEDS: IBUPROFEN 600 MG TABLET (FP) PO PRN (17:28)
[2022-11-27] MEDS: ATORVASTATIN CA 40 MG TABLET (FP) PO SCH (21:26)
[2022-11-27] MEDS: hydrOXYzine PAMOATE 25 MG CAPSULE (FP) PO PRN (21:26)
[2022-11-27] MEDS: MIRTAZAPINE 15 MG TABLET (FP) PO SCH (21:26)
[2022-11-27] MEDS: THIAMINE HCL 100 MG TABLET (FP) PO SCH (21:26)
[2022-11-28] MEDS: PANTOPRAZOLE 40 MG TABLET PO SCH (09:49)
[2022-11-28] MEDS: PRENATAL VITAMINS W/ FOLIC ACID TABLET (FP) PO SCH (09:49)
[2022-11-28] MEDS: NICOTINE 10 MG CARTRIDGE (INHALER) IH PRN ×2 (09:50→18:28)
[2022-11-28] MEDS: FLUTICASONE PROP 0.05% 16 GM NASAL SPRAY NS SCH ×2 (09:50→21:24)
[2022-11-28] MEDS: THIAMINE HCL 100 MG TABLET (FP) PO SCH (21:22)
[2022-11-28] MEDS: ATORVASTATIN CA 40 MG TABLET (FP) PO SCH (21:22)
[2022-11-28] MEDS: MIRTAZAPINE 15 MG TABLET (FP) PO SCH (21:22)
[2022-11-28] MEDS: IBUPROFEN 400 MG TABLET (FP) PO PRN (21:23)
[2022-11-28] MEDS: hydrOXYzine PAMOATE 25 MG CAPSULE (FP) PO PRN (21:23)
[2022-11-29] MEDS: NICOTINE 21 MG/24 HOURS TOPICAL PATCH TD PRN (06:25)
[2022-11-29] MEDS: FLUTICASONE PROP 0.05% 16 GM NASAL SPRAY NS SCH ×2 (09:59→21:28)
[2022-11-29] MEDS: PANTOPRAZOLE 40 MG TABLET PO SCH (10:00)
[2022-11-29] MEDS: PRENATAL VITAMINS W/ FOLIC ACID TABLET (FP) PO SCH (10:00)
[2022-11-29] MEDS: IBUPROFEN 400 MG TABLET (FP) PO PRN ×2 (10:01→21:32)
[2022-11-29] MEDS: NICOTINE 10 MG CARTRIDGE (INHALER) IH PRN ×2 (14:06→21:28)
[2022-11-29] MEDS: THIAMINE HCL 100 MG TABLET (FP) PO SCH (21:27)
[2022-11-29] MEDS: MIRTAZAPINE 15 MG TABLET (FP) PO SCH (21:28)
[2022-11-29] MEDS: hydrOXYzine PAMOATE 25 MG CAPSULE (FP) PO PRN (21:28)
[2022-11-29] MEDS: ATORVASTATIN CA 40 MG TABLET (FP) PO SCH (21:28)
[2022-11-30] MEDS: NICOTINE 21 MG/24 HOURS TOPICAL PATCH TD PRN (06:10)
[2022-11-30] MEDS: IBUPROFEN 600 MG TABLET (FP) PO PRN (06:11)
[2022-11-30] MEDS: PANTOPRAZOLE 40 MG TABLET PO SCH (09:57)
[2022-11-30] MEDS: PRENATAL VITAMINS W/ FOLIC ACID TABLET (FP) PO SCH (09:57)
[2022-11-30] MEDS: NICOTINE 10 MG CARTRIDGE (INHALER) IH PRN ×3 (09:59→23:04)
[2022-11-30] MEDS: FLUTICASONE PROP 0.05% 16 GM NASAL SPRAY NS SCH ×2 (11:51→21:18)
[2022-11-30] MEDS ORDERED: COLLOIDAL OATMEAL 1 BAR EACH TP PRN (13:16)
[2022-11-30] MEDS: ATORVASTATIN CA 40 MG TABLET (FP) PO SCH (21:17)
[2022-11-30] MEDS: THIAMINE HCL 100 MG TABLET (FP) PO SCH (21:17)
[2022-11-30] MEDS: MIRTAZAPINE 15 MG TABLET (FP) PO SCH (21:17)
[2022-11-30] MEDS: hydrOXYzine PAMOATE 25 MG CAPSULE (FP) PO PRN (21:18)
[2022-11-30] MEDS: IBUPROFEN 400 MG TABLET (FP) PO PRN (21:18)
[2022-12-01] MEDS: PRENATAL VITAMINS W/ FOLIC ACID TABLET (FP) PO SCH (09:59)
[2022-12-01] MEDS: NICOTINE 10 MG CARTRIDGE (INHALER) IH PRN ×2 (10:00→18:52)
[2022-12-01] MEDS: FLUTICASONE PROP 0.05% 16 GM NASAL SPRAY NS SCH ×2 (10:00→21:48)
[2022-12-01] MEDS: PANTOPRAZOLE 40 MG TABLET PO SCH (10:00)
[2022-12-01] MEDS: NICOTINE 21 MG/24 HOURS TOPICAL PATCH TD PRN (10:01)
[2022-12-01] MEDS: hydrOXYzine PAMOATE 25 MG CAPSULE (FP) PO PRN ×2 (10:02→21:50)
[2022-12-01] MEDS: ATORVASTATIN CA 40 MG TABLET (FP) PO SCH (21:49)
[2022-12-01] MEDS: THIAMINE HCL 100 MG TABLET (FP) PO SCH (21:49)
[2022-12-01] MEDS: MIRTAZAPINE 15 MG TABLET (FP) PO SCH (21:49)
[2022-12-02] MEDS: NICOTINE 10 MG CARTRIDGE (INHALER) IH PRN ×4 (06:01→21:09)
[2022-12-02] MEDS: PRENATAL VITAMINS W/ FOLIC ACID TABLET (FP) PO SCH (10:04)
[2022-12-02] MEDS: PANTOPRAZOLE 40 MG TABLET PO SCH (10:04)
[2022-12-02] MEDS: NICOTINE 21 MG/24 HOURS TOPICAL PATCH TD PRN (10:04)
[2022-12-02] MEDS: IBUPROFEN 600 MG TABLET (FP) PO PRN (10:06)
[2022-12-02] MEDS: FLUTICASONE PROP 0.05% 16 GM NASAL SPRAY NS SCH ×2 (10:21→21:10)
[2022-12-02] MEDS: MIRTAZAPINE 15 MG TABLET (FP) PO SCH (21:09)
[2022-12-02] MEDS: THIAMINE HCL 100 MG TABLET (FP) PO SCH (21:09)
[2022-12-02] MEDS: ATORVASTATIN CA 40 MG TABLET (FP) PO SCH (21:09)
[2022-12-02] MEDS: IBUPROFEN 400 MG TABLET (FP) PO PRN (21:09)
[2022-12-03] MEDS: NICOTINE 10 MG CARTRIDGE (INHALER) IH PRN ×4 (06:34→21:21)
[2022-12-03] MEDS: FLUTICASONE PROP 0.05% 16 GM NASAL SPRAY NS SCH ×2 (09:41→21:23)
[2022-12-03] MEDS: PANTOPRAZOLE 40 MG TABLET PO SCH (09:41)
[2022-12-03] MEDS: PRENATAL VITAMINS W/ FOLIC ACID TABLET (FP) PO SCH (09:42)
[2022-12-03] MEDS: NICOTINE 21 MG/24 HOURS TOPICAL PATCH TD PRN (09:42)
[2022-12-03] MEDS: IBUPROFEN 600 MG TABLET (FP) PO PRN (11:42)
[2022-12-03] MEDS: MIRTAZAPINE 15 MG TABLET (FP) PO SCH (21:21)
[2022-12-03] MEDS: THIAMINE HCL 100 MG TABLET (FP) PO SCH (21:21)
[2022-12-03] MEDS: ATORVASTATIN CA 40 MG TABLET (FP) PO SCH (21:21)
[2022-12-03] MEDS: hydrOXYzine PAMOATE 25 MG CAPSULE (FP) PO PRN (21:22)
[2022-12-03] MEDS: IBUPROFEN 400 MG TABLET (FP) PO PRN (21:22)
[2022-12-04] MEDS: ALBUTEROL SO4 HFA INHALER IH PRN ×4 (00:35→21:35)
[2022-12-04] MEDS: FLUTICASONE PROP 0.05% 16 GM NASAL SPRAY NS SCH ×3 (00:41→21:58)
[2022-12-04] MEDS: NICOTINE 10 MG CARTRIDGE (INHALER) IH PRN ×4 (05:58→21:33)
[2022-12-04] MEDS: hydrOXYzine PAMOATE 25 MG CAPSULE (FP) PO PRN ×2 (05:58→21:32)
[2022-12-04] MEDS: NICOTINE 21 MG/24 HOURS TOPICAL PATCH TD PRN (06:00)
[2022-12-04] MEDS: PRENATAL VITAMINS W/ FOLIC ACID TABLET (FP) PO SCH (09:58)
[2022-12-04] MEDS: PANTOPRAZOLE 40 MG TABLET PO SCH (09:58)
[2022-12-04] MEDS: ERGOCALCIFEROL (VIT D2) 50,000 UNIT (1.25 MG) CAPSULE PO SCH (12:33)
[2022-12-04] MEDS ORDERED: COLLOIDAL OATMEAL 1 BAR EACH TP PRN (14:59)
[2022-12-04] MEDS ORDERED: AZITHROMYCIN 250 MG TABLET PO ONE (15:10)
[2022-12-04] MEDS: LIDOCAINE 5% TOPICAL PATCH TP SCH (16:03)
[2022-12-04] MEDS: IBUPROFEN 600 MG TABLET (FP) PO PRN (21:32)
[2022-12-04] MEDS: MIRTAZAPINE 15 MG TABLET (FP) PO SCH (21:32)
[2022-12-04] MEDS: THIAMINE HCL 100 MG TABLET (FP) PO SCH (21:32)
[2022-12-04] MEDS: ATORVASTATIN CA 40 MG TABLET (FP) PO SCH (21:32)
[2022-12-04] MEDS: guaiFENesin 600 MG TABLET.ER (FP) PO SCH (21:57)
[2022-12-04] MEDS: LIDOCAINE PATCH REMOVAL MC SCH (21:57)
[2022-12-04] MEDS ORDERED: AZITHROMYCIN 250 MG TABLET PO SCH (22:00)
[2022-12-05] MEDS: hydrOXYzine PAMOATE 25 MG CAPSULE (FP) PO PRN (06:19)
[2022-12-05] MEDS: NICOTINE 10 MG CARTRIDGE (INHALER) IH PRN ×3 (06:19→16:27)
[2022-12-05] MEDS: methaDONE HCL 40 MG DISPERSABLE TABLET PO SCH (06:20)
[2022-12-05] MEDS: ALBUTEROL SO4 HFA INHALER IH PRN ×2 (06:24→09:25)
[2022-12-05] MEDS: FLUTICASONE PROP 0.05% 16 GM NASAL SPRAY NS SCH ×2 (09:25→23:05)
[2022-12-05] MEDS: guaiFENesin 600 MG TABLET.ER (FP) PO SCH ×2 (09:26→21:33)
[2022-12-05] MEDS: AZITHROMYCIN 250 MG TABLET PO SCH (09:26)
[2022-12-05] MEDS: PANTOPRAZOLE 40 MG TABLET PO SCH (09:26)
[2022-12-05] MEDS: LIDOCAINE 5% TOPICAL PATCH TP SCH (09:26)
[2022-12-05] MEDS: PRENATAL VITAMINS W/ FOLIC ACID TABLET (FP) PO SCH (09:27)
[2022-12-05] MEDS: THIAMINE HCL 100 MG TABLET (FP) PO SCH (21:33)
[2022-12-05] MEDS: ATORVASTATIN CA 40 MG TABLET (FP) PO SCH (21:33)
[2022-12-05] MEDS: IBUPROFEN 400 MG TABLET (FP) PO PRN (21:34)
[2022-12-05] MEDS: MIRTAZAPINE 15 MG TABLET (FP) PO SCH (21:34)
[2022-12-05] MEDS: LIDOCAINE PATCH REMOVAL MC SCH (23:05)
[2022-12-06] MEDS: methaDONE HCL 40 MG DISPERSABLE TABLET PO SCH (06:41)
[2022-12-06] MEDS: NICOTINE 10 MG CARTRIDGE (INHALER) IH PRN ×2 (06:42→10:06)
[2022-12-06] MEDS: ALBUTEROL SO4 HFA INHALER IH PRN (06:43)
[2022-12-06 07:32] VITALS: BP 157/85; PULSE 71; RESP 16; TEMP 97.5
[2022-12-06] MEDS: LIDOCAINE 5% TOPICAL PATCH TP SCH (10:05)
[2022-12-06] MEDS: PRENATAL VITAMINS W/ FOLIC ACID TABLET (FP) PO SCH (10:05)
[2022-12-06] MEDS: guaiFENesin 600 MG TABLET.ER (FP) PO SCH (10:05)
[2022-12-06] MEDS: FLUTICASONE PROP 0.05% 16 GM NASAL SPRAY NS SCH (10:05)
[2022-12-06] MEDS: PANTOPRAZOLE 40 MG TABLET PO SCH (10:05)
[2022-12-06] MEDS: AZITHROMYCIN 250 MG TABLET PO SCH (10:06)
[2022-12-06] MEDS: NICOTINE 21 MG/24 HOURS TOPICAL PATCH TD PRN (10:06)
== END 2022-12-06 17:36 | disposition home or self-care (01) | DRG 772 ==
LOC: YASAS 09:06 → Y3E 14:03 → Y3W 11-17 12:00
PROVIDERS: ADMIT Allergy & Immunology; ATTEND Psychiatry & Neurology Pain Medicine
PROC: HZ42ZZZ Group Counseling for Substance Abuse Treatment, Cognitive-Behavioral (ICD-10-PCS; principal; 2022-11-16)
DX: F11.20 Opioid dependence, uncomplicated (principal); F14.20 Cocaine dependence, uncomplicated; F17.210 Nicotine dependence, cigarettes, uncomplicated; F19.282 Other psychoactive substance dependence with psychoactive substance-induced sleep disorder; F19.24 Other psychoactive substance dependence with psychoactive substance-induced mood disorder; F51.05 Insomnia due to other mental disorder; I10 Essential (primary) hypertension; E78.5 Hyperlipidemia, unspecified; K21.9 Gastro-esophageal reflux disease without esophagitis; R05.9 Cough, unspecified; M54.50 Low back pain, unspecified; G89.29 Other chronic pain; M48.061 Spinal stenosis, lumbar region without neurogenic claudication; K46.9 Unspecified abdominal hernia without obstruction or gangrene; Z86.19 Personal history of other infectious and parasitic diseases; Z99.89 Dependence on other enabling machines and devices; Z88.0 Allergy status to penicillin
CPT/HCPCS: 0241U-QW; 36415; 70450-TC; 73130-TC-LT-FY; 73130-TC-RT-FY; 80053; 81003; 83690; 84132; 85025; 85027; 85610; 85730; 86780; 86803; 87522; 93005; 93010; C9803-CS; G0463-25; U0003; U0005

== ENCOUNTER 2023-06-08 12:52 | Inpatient (IN) | payer OTHER ==
[2023-06-08 16:55] VITALS: BMI 23.0
[2023-06-08] MEDS ORDERED: ACETAMINOPHEN 325 MG TABLET (FP) PO PRN (18:13)
[2023-06-08] MEDS ORDERED: NALOXONE HCL (KLOXXADO) 8 MG SPRAY NS PRN (18:13)
[2023-06-08] MEDS ORDERED: LOPERAMIDE HCL 2 MG CAPSULE PO PRN (18:13)
[2023-06-08] MEDS ORDERED: MAGNESIUM HYDROX 2400MG/30ML ORAL SUSPENSION 30 ML CUP PO PRN (18:13)
[2023-06-08] MEDS ORDERED: guaiFENesin 600 MG TABLET.ER (FP) PO PRN (18:13)
[2023-06-08] MEDS ORDERED: BENZONATATE 200 MG CAPSULE PO PRN (18:13)
[2023-06-08] MEDS ORDERED: POLYETHYLENE GLYCOL (HEALTHYLAX) 3350 17 GM PACKET PO PRN (18:13)
[2023-06-08] MEDS ORDERED: NALOXONE HCL 0.4 MG/ML VIAL IM PRN (18:13)
[2023-06-08] MEDS ORDERED: COLLOIDAL OATMEAL 1 BAR EACH TP PRN (18:13)
[2023-06-08] MEDS ORDERED: IBUPROFEN 400 MG TABLET (FP) PO PRN (18:13)
[2023-06-08] MEDS: THIAMINE HCL 100 MG TABLET (FP) PO SCH (22:07)
[2023-06-08] MEDS: MELATONIN 5 MG TABLETS PO SCH (22:08)
[2023-06-08] MEDS: PANTOPRAZOLE 40 MG TABLET PO SCH (22:08)
[2023-06-09] MEDS: hydrOXYzine PAMOATE 25 MG CAPSULE (FP) PO PRN (06:36)
[2023-06-09] MEDS: IBUPROFEN 600 MG TABLET (FP) PO PRN ×2 (06:36→22:42)
[2023-06-09] MEDS: methaDONE HCL 40 MG DISPERSABLE TABLET PO SCH (07:50)
[2023-06-09] MEDS: PANTOPRAZOLE 40 MG TABLET PO SCH (11:03)
[2023-06-09] MEDS: PRENATAL VITAMINS W/ FOLIC ACID TABLET (FP) PO SCH (11:03)
[2023-06-09 12:15] LABS: HEMATOCRIT 32.1 % (35.4-49); HEMOGLOBIN 11.5 GM/dL (11.7-16.9); MCH 29.9 pg (25.7-33.7); MCHC 35.8 g/dl (32.0-35.9); MEAN CELL VOLUME 83.5 fl (80-96); MEAN PLT VOLUME 7.8 fl (7.5-11.1); PLATELET COUNT 243 10^3/uL (134-434); RBC 3.85 M/mm3 (4.00-5.60); RDW 13.5 % (11.9-15.9); WHITE BLOOD COUNT 5.5 K/mm3 (4.0-10.0)
[2023-06-09 12:28] LABS: CHLORIDE 106 mmol/L (98-107); POTASSIUM 4.1 mmol/L (3.5-5.1); SODIUM 139 mmol/L (136-145)
[2023-06-09 12:41] LABS: CALCIUM 8.6 mg/dL (8.5-10.1)
[2023-06-09 12:42] LABS: ALBUMIN 3.2 g/dl (3.4-5.0); ANION GAP 2 mmol/L (4-13); BLOOD UREA NITROGEN 21.5 mg/dL (7-18); CO2 31 mmol/L (21-32); GLUCOSE,RANDOM 145 mg/dL (74-106)
[2023-06-09 12:44] LABS: CREATININE 1.1 mg/dL (0.55-1.3)
[2023-06-09 12:45] LABS: SGOT/AST 21 U/L (15-37); SGPT/ALT 23 U/L (13-61)
[2023-06-09 12:46] LABS: BILIRUBIN,TOTAL 0.5 mg/dL (0.2-1); TOT PROT 6.7 g/dl (6.4-8.2)
[2023-06-09 12:47] LABS: ALK PHOS 96 U/L (45-117)
[2023-06-09 12:48] LABS: SYPHILIS W/ RPR CONF NON-REACTIVE (NONREACTIVE)
[2023-06-09] MEDS: MELATONIN 5 MG TABLETS PO SCH (21:42)
[2023-06-09] MEDS: THIAMINE HCL 100 MG TABLET (FP) PO SCH (21:42)
[2023-06-10] MEDS: methaDONE HCL 40 MG DISPERSABLE TABLET PO SCH (06:38)
[2023-06-10] MEDS: IBUPROFEN 600 MG TABLET (FP) PO PRN (06:39)
[2023-06-10] MEDS: PANTOPRAZOLE 40 MG TABLET PO SCH (10:14)
[2023-06-10] MEDS: PRENATAL VITAMINS W/ FOLIC ACID TABLET (FP) PO SCH (10:14)
[2023-06-10 10:18] LABS: URINE APPEARANCE CLEAR; URINE BILIRUBIN NEGATIVE (NEGATIVE); URINE COLOR YELLOW; URINE GLUCOSE (UA) NEGATIVE (NEGATIVE); URINE KETONE NEGATIVE (NEGATIVE); URINE LEUK ESTERASE NEGATIVE (NEGATIVE); URINE NITRITE NEGATIVE (NEGATIVE); URINE PROTEIN NEGATIVE (NEGATIVE); URINE UROBILINOGEN 0.2 mg/dL (0.2-1.0)
[2023-06-10] MEDS: NICOTINE 21 MG/24 HOURS TOPICAL PATCH TD SCH (13:49)
[2023-06-10] MEDS: THIAMINE HCL 100 MG TABLET (FP) PO SCH (21:17)
[2023-06-10] MEDS: MELATONIN 5 MG TABLETS PO SCH (21:17)
[2023-06-11] MEDS: methaDONE HCL 40 MG DISPERSABLE TABLET PO SCH (06:10)
[2023-06-11] MEDS: PRENATAL VITAMINS W/ FOLIC ACID TABLET (FP) PO SCH (10:06)
[2023-06-11] MEDS: NICOTINE 21 MG/24 HOURS TOPICAL PATCH TD SCH (10:06)
[2023-06-11] MEDS: PANTOPRAZOLE 40 MG TABLET PO SCH (10:06)
[2023-06-11] MEDS ORDERED: ALBUTEROL SO4 HFA INHALER IH PRN (13:02)
[2023-06-11] MEDS: HYDROCHLOROTHIAZIDE 25 MG TABLET (FP) PO SCH (14:10)
[2023-06-11] MEDS: PREGABALIN 75 MG CAPSULE PO SCH ×2 (14:10→21:10)
[2023-06-11] MEDS: THIAMINE HCL 100 MG TABLET (FP) PO SCH (21:09)
[2023-06-11] MEDS: MELATONIN 5 MG TABLETS PO SCH (21:09)
[2023-06-11] MEDS: ATORVASTATIN CA 40 MG TABLET (FP) PO SCH (21:10)
[2023-06-12] MEDS: methaDONE HCL 40 MG DISPERSABLE TABLET PO SCH (06:16)
[2023-06-12] MEDS: PREGABALIN 75 MG CAPSULE PO SCH ×3 (06:16→21:10)
[2023-06-12] MEDS: HYDROCHLOROTHIAZIDE 25 MG TABLET (FP) PO SCH (10:32)
[2023-06-12] MEDS: PANTOPRAZOLE 40 MG TABLET PO SCH (10:33)
[2023-06-12] MEDS: PRENATAL VITAMINS W/ FOLIC ACID TABLET (FP) PO SCH (10:33)
[2023-06-12] MEDS: NICOTINE 21 MG/24 HOURS TOPICAL PATCH TD SCH (10:34)
[2023-06-12] MEDS: MELATONIN 5 MG TABLETS PO SCH (21:09)
[2023-06-12] MEDS: THIAMINE HCL 100 MG TABLET (FP) PO SCH (21:09)
[2023-06-12] MEDS: ATORVASTATIN CA 40 MG TABLET (FP) PO SCH (21:09)
[2023-06-13] MEDS ORDERED: methaDONE HCL 40 MG DISPERSABLE TABLET PO SCH (06:00)
[2023-06-13] MEDS: PREGABALIN 75 MG CAPSULE PO SCH (06:07)
[2023-06-13] MEDS: PRENATAL VITAMINS W/ FOLIC ACID TABLET (FP) PO SCH (10:18)
[2023-06-13] MEDS: NICOTINE 21 MG/24 HOURS TOPICAL PATCH TD SCH (10:18)
[2023-06-13] MEDS: HYDROCHLOROTHIAZIDE 25 MG TABLET (FP) PO SCH (10:18)
[2023-06-13] MEDS: PANTOPRAZOLE 40 MG TABLET PO SCH (10:18)
[2023-06-13] MEDS ORDERED: AMMONIUM LACTATE 12% LOTION 225 GM BOTTLE TP PRN (11:10)
[2023-06-13] MEDS: PREGABALIN 100 MG CAPSULE PO SCH ×2 (13:57→21:18)
[2023-06-13] MEDS: ATORVASTATIN CA 40 MG TABLET (FP) PO SCH (21:18)
[2023-06-13] MEDS: MELATONIN 5 MG TABLETS PO SCH (21:18)
[2023-06-13] MEDS: THIAMINE HCL 100 MG TABLET (FP) PO SCH (21:18)
[2023-06-14] MEDS: PREGABALIN 100 MG CAPSULE PO SCH ×3 (06:15→21:07)
[2023-06-14] MEDS: NICOTINE 21 MG/24 HOURS TOPICAL PATCH TD SCH (09:59)
[2023-06-14] MEDS: PRENATAL VITAMINS W/ FOLIC ACID TABLET (FP) PO SCH (09:59)
[2023-06-14] MEDS: PANTOPRAZOLE 40 MG TABLET PO SCH (09:59)
[2023-06-14] MEDS: HYDROCHLOROTHIAZIDE 25 MG TABLET (FP) PO SCH (09:59)
[2023-06-14] MEDS: ATORVASTATIN CA 40 MG TABLET (FP) PO SCH (21:06)
[2023-06-14] MEDS: THIAMINE HCL 100 MG TABLET (FP) PO SCH (21:06)
[2023-06-14] MEDS: MELATONIN 5 MG TABLETS PO SCH (21:07)
[2023-06-14] MEDS: NICOTINE POLACRILEX 4 MG GUM BUC PRN (21:07)
[2023-06-15] MEDS: MAG HYDROX/AL HYDROX/SIMETH 30 ML UNIT-DOSE CUP PO PRN ×2 (02:51→21:27)
[2023-06-15] MEDS ORDERED: methaDONE HCL 40 MG DISPERSABLE TABLET PO SCH (06:00)
[2023-06-15] MEDS: PREGABALIN 100 MG CAPSULE PO SCH ×3 (06:32→21:26)
[2023-06-15] MEDS: methaDONE 80 MG, methaDONE 20 MG PO SCH (06:32)
[2023-06-15] MEDS: FERROUS SO4 325 MG TABLET (FP) PO SCH (07:03)
[2023-06-15] MEDS: NICOTINE 21 MG/24 HOURS TOPICAL PATCH TD SCH (10:15)
[2023-06-15] MEDS: PRENATAL VITAMINS W/ FOLIC ACID TABLET (FP) PO SCH (10:15)
[2023-06-15] MEDS: HYDROCHLOROTHIAZIDE 25 MG TABLET (FP) PO SCH (10:15)
[2023-06-15] MEDS: PANTOPRAZOLE 40 MG TABLET PO SCH (10:15)
[2023-06-15] MEDS: NICOTINE POLACRILEX 4 MG GUM BUC PRN (10:17)
[2023-06-15] MEDS: THIAMINE HCL 100 MG TABLET (FP) PO SCH (21:26)
[2023-06-15] MEDS: MELATONIN 5 MG TABLETS PO SCH (21:26)
[2023-06-15] MEDS: ATORVASTATIN CA 40 MG TABLET (FP) PO SCH (21:26)
[2023-06-16] MEDS: methaDONE 80 MG, methaDONE 20 MG PO SCH (06:34)
[2023-06-16] MEDS: PREGABALIN 100 MG CAPSULE PO SCH ×3 (06:35→21:21)
[2023-06-16] MEDS: FERROUS SO4 325 MG TABLET (FP) PO SCH (07:24)
[2023-06-16] MEDS: PANTOPRAZOLE 40 MG TABLET PO SCH (10:02)
[2023-06-16] MEDS: NICOTINE 21 MG/24 HOURS TOPICAL PATCH TD SCH (10:02)
[2023-06-16] MEDS: PRENATAL VITAMINS W/ FOLIC ACID TABLET (FP) PO SCH (10:02)
[2023-06-16] MEDS: HYDROCHLOROTHIAZIDE 25 MG TABLET (FP) PO SCH (11:32)
[2023-06-16] MEDS: NICOTINE POLACRILEX 4 MG GUM BUC PRN (13:43)
[2023-06-16] MEDS: ATORVASTATIN CA 40 MG TABLET (FP) PO SCH (21:21)
[2023-06-16] MEDS: MELATONIN 5 MG TABLETS PO SCH (21:21)
[2023-06-16] MEDS: THIAMINE HCL 100 MG TABLET (FP) PO SCH (21:21)
[2023-06-16] MEDS: MAG HYDROX/AL HYDROX/SIMETH 30 ML UNIT-DOSE CUP PO PRN (21:22)
[2023-06-17] MEDS: methaDONE 80 MG, methaDONE 20 MG PO SCH (05:57)
[2023-06-17] MEDS: PREGABALIN 100 MG CAPSULE PO SCH ×3 (05:58→21:38)
[2023-06-17] MEDS: FERROUS SO4 325 MG TABLET (FP) PO SCH (07:19)
[2023-06-17] MEDS: PRENATAL VITAMINS W/ FOLIC ACID TABLET (FP) PO SCH (09:43)
[2023-06-17] MEDS: HYDROCHLOROTHIAZIDE 25 MG TABLET (FP) PO SCH (09:43)
[2023-06-17] MEDS: PANTOPRAZOLE 40 MG TABLET PO SCH (09:43)
[2023-06-17] MEDS: NICOTINE 21 MG/24 HOURS TOPICAL PATCH TD SCH (09:43)
[2023-06-17] MEDS: NICOTINE POLACRILEX 4 MG GUM BUC PRN (09:44)
[2023-06-17] MEDS: THIAMINE HCL 100 MG TABLET (FP) PO SCH (21:38)
[2023-06-17] MEDS: MELATONIN 5 MG TABLETS PO SCH (21:38)
[2023-06-17] MEDS: ATORVASTATIN CA 40 MG TABLET (FP) PO SCH (21:38)
[2023-06-18] MEDS: methaDONE 80 MG, methaDONE 20 MG PO SCH (06:37)
[2023-06-18] MEDS: PREGABALIN 100 MG CAPSULE PO SCH ×3 (06:38→21:17)
[2023-06-18] MEDS: FERROUS SO4 325 MG TABLET (FP) PO SCH (07:05)
[2023-06-18] MEDS: PANTOPRAZOLE 40 MG TABLET PO SCH (10:12)
[2023-06-18] MEDS: PRENATAL VITAMINS W/ FOLIC ACID TABLET (FP) PO SCH (10:12)
[2023-06-18] MEDS: HYDROCHLOROTHIAZIDE 25 MG TABLET (FP) PO SCH (10:12)
[2023-06-18] MEDS: NICOTINE 21 MG/24 HOURS TOPICAL PATCH TD SCH (10:12)
[2023-06-18] MEDS: NICOTINE POLACRILEX 4 MG GUM BUC PRN (10:14)
[2023-06-18] MEDS ORDERED: methaDONE HCL 40 MG DISPERSABLE TABLET PO SCH (13:46)
[2023-06-18] MEDS: THIAMINE HCL 100 MG TABLET (FP) PO SCH (21:17)
[2023-06-18] MEDS: ATORVASTATIN CA 40 MG TABLET (FP) PO SCH (21:17)
[2023-06-18] MEDS: MELATONIN 5 MG TABLETS PO SCH (21:17)
[2023-06-19] MEDS: methaDONE 80 MG, methaDONE 10 MG PO SCH (06:35)
[2023-06-19] MEDS: PREGABALIN 100 MG CAPSULE PO SCH ×3 (06:36→21:31)
[2023-06-19] MEDS: hydrOXYzine PAMOATE 25 MG CAPSULE (FP) PO PRN (06:36)
[2023-06-19] MEDS: FERROUS SO4 325 MG TABLET (FP) PO SCH (07:01)
[2023-06-19] MEDS: PRENATAL VITAMINS W/ FOLIC ACID TABLET (FP) PO SCH (10:03)
[2023-06-19] MEDS: HYDROCHLOROTHIAZIDE 25 MG TABLET (FP) PO SCH (10:03)
[2023-06-19] MEDS: NICOTINE 21 MG/24 HOURS TOPICAL PATCH TD SCH (10:04)
[2023-06-19] MEDS: PANTOPRAZOLE 40 MG TABLET PO SCH (10:04)
[2023-06-19] MEDS: MELATONIN 5 MG TABLETS PO SCH (21:31)
[2023-06-19] MEDS: ATORVASTATIN CA 40 MG TABLET (FP) PO SCH (21:31)
[2023-06-19] MEDS: THIAMINE HCL 100 MG TABLET (FP) PO SCH (21:31)
[2023-06-20] MEDS: methaDONE 80 MG, methaDONE 10 MG PO SCH (06:02)
[2023-06-20] MEDS: PREGABALIN 100 MG CAPSULE PO SCH ×3 (06:04→21:12)
[2023-06-20] MEDS: BENZOCAINE/MENTHOL (CHLORASEPTIC ) LOZENGE MM PRN (06:05)
[2023-06-20] MEDS: FERROUS SO4 325 MG TABLET (FP) PO SCH (07:05)
[2023-06-20] MEDS: HYDROCHLOROTHIAZIDE 25 MG TABLET (FP) PO SCH (09:18)
[2023-06-20] MEDS: NICOTINE 21 MG/24 HOURS TOPICAL PATCH TD SCH (09:18)
[2023-06-20] MEDS: PRENATAL VITAMINS W/ FOLIC ACID TABLET (FP) PO SCH (09:19)
[2023-06-20] MEDS: PANTOPRAZOLE 40 MG TABLET PO SCH (09:19)
[2023-06-20] MEDS ORDERED: AZITHROMYCIN 250 MG TABLET PO ONE (09:46)
[2023-06-20] MEDS: ATORVASTATIN CA 40 MG TABLET (FP) PO SCH (21:11)
[2023-06-20] MEDS: MELATONIN 5 MG TABLETS PO SCH (21:11)
[2023-06-20] MEDS: THIAMINE HCL 100 MG TABLET (FP) PO SCH (21:11)
[2023-06-20] MEDS: IBUPROFEN 600 MG TABLET (FP) PO PRN (21:12)
[2023-06-21] MEDS: methaDONE 80 MG, methaDONE 10 MG PO SCH (06:17)
[2023-06-21] MEDS: FERROUS SO4 325 MG TABLET (FP) PO SCH (07:03)
[2023-06-21] MEDS: PRENATAL VITAMINS W/ FOLIC ACID TABLET (FP) PO SCH (09:45)
[2023-06-21] MEDS: PANTOPRAZOLE 40 MG TABLET PO SCH (09:45)
[2023-06-21] MEDS: NICOTINE 21 MG/24 HOURS TOPICAL PATCH TD SCH (09:45)
[2023-06-21] MEDS: HYDROCHLOROTHIAZIDE 25 MG TABLET (FP) PO SCH (09:45)
[2023-06-21] MEDS: AZITHROMYCIN 250 MG TABLET PO SCH (09:45)
[2023-06-21] MEDS: PREGABALIN 100 MG CAPSULE PO SCH ×2 (09:46→21:57)
[2023-06-21] MEDS: MELATONIN 5 MG TABLETS PO SCH (21:56)
[2023-06-21] MEDS: ATORVASTATIN CA 40 MG TABLET (FP) PO SCH (21:57)
[2023-06-21] MEDS: THIAMINE HCL 100 MG TABLET (FP) PO SCH (21:57)
[2023-06-21] MEDS: IBUPROFEN 600 MG TABLET (FP) PO PRN (22:57)
[2023-06-22] MEDS: methaDONE 80 MG, methaDONE 10 MG PO SCH (06:04)
[2023-06-22] MEDS: FERROUS SO4 325 MG TABLET (FP) PO SCH (08:37)
[2023-06-22] MEDS: PRENATAL VITAMINS W/ FOLIC ACID TABLET (FP) PO SCH (10:20)
[2023-06-22] MEDS: PREGABALIN 100 MG CAPSULE PO SCH ×2 (10:20→21:08)
[2023-06-22] MEDS: AZITHROMYCIN 250 MG TABLET PO SCH (10:20)
[2023-06-22] MEDS: PANTOPRAZOLE 40 MG TABLET PO SCH (10:20)
[2023-06-22] MEDS: HYDROCHLOROTHIAZIDE 25 MG TABLET (FP) PO SCH (10:20)
[2023-06-22] MEDS: NICOTINE 21 MG/24 HOURS TOPICAL PATCH TD SCH (10:21)
[2023-06-22] MEDS: THIAMINE HCL 100 MG TABLET (FP) PO SCH (21:07)
[2023-06-22] MEDS: MELATONIN 5 MG TABLETS PO SCH (21:07)
[2023-06-22] MEDS: ATORVASTATIN CA 40 MG TABLET (FP) PO SCH (21:07)
[2023-06-22] MEDS: IBUPROFEN 600 MG TABLET (FP) PO PRN (21:08)
[2023-06-23] MEDS: methaDONE 80 MG, methaDONE 10 MG PO SCH (06:11)
[2023-06-23] MEDS: IBUPROFEN 600 MG TABLET (FP) PO PRN ×2 (06:12→21:25)
[2023-06-23] MEDS: FERROUS SO4 325 MG TABLET (FP) PO SCH (07:45)
[2023-06-23] MEDS: PANTOPRAZOLE 40 MG TABLET PO SCH (09:58)
[2023-06-23] MEDS: AZITHROMYCIN 250 MG TABLET PO SCH (09:58)
[2023-06-23] MEDS: NICOTINE 21 MG/24 HOURS TOPICAL PATCH TD SCH (09:58)
[2023-06-23] MEDS: HYDROCHLOROTHIAZIDE 25 MG TABLET (FP) PO SCH (09:58)
[2023-06-23] MEDS: PRENATAL VITAMINS W/ FOLIC ACID TABLET (FP) PO SCH (09:58)
[2023-06-23] MEDS: PREGABALIN 100 MG CAPSULE PO SCH ×2 (09:58→21:24)
[2023-06-23] MEDS: NICOTINE POLACRILEX 4 MG GUM BUC PRN (09:59)
[2023-06-23] MEDS: ATORVASTATIN CA 40 MG TABLET (FP) PO SCH (21:23)
[2023-06-23] MEDS: MELATONIN 5 MG TABLETS PO SCH (21:24)
[2023-06-23] MEDS: THIAMINE HCL 100 MG TABLET (FP) PO SCH (21:24)
[2023-06-24] MEDS: IBUPROFEN 600 MG TABLET (FP) PO PRN (01:58)
[2023-06-24] MEDS: methaDONE 80 MG, methaDONE 10 MG PO SCH (06:17)
[2023-06-24] MEDS: FERROUS SO4 325 MG TABLET (FP) PO SCH (07:04)
[2023-06-24] MEDS: NICOTINE 21 MG/24 HOURS TOPICAL PATCH TD SCH (10:02)
[2023-06-24] MEDS: AZITHROMYCIN 250 MG TABLET PO SCH (10:03)
[2023-06-24] MEDS: HYDROCHLOROTHIAZIDE 25 MG TABLET (FP) PO SCH (10:03)
[2023-06-24] MEDS: PANTOPRAZOLE 40 MG TABLET PO SCH (10:03)
[2023-06-24] MEDS: PREGABALIN 100 MG CAPSULE PO SCH ×2 (10:03→21:04)
[2023-06-24] MEDS: PRENATAL VITAMINS W/ FOLIC ACID TABLET (FP) PO SCH (10:03)
[2023-06-24] MEDS: NICOTINE POLACRILEX 4 MG GUM BUC PRN (10:04)
[2023-06-24] MEDS: ATORVASTATIN CA 40 MG TABLET (FP) PO SCH (21:04)
[2023-06-24] MEDS: THIAMINE HCL 100 MG TABLET (FP) PO SCH (21:04)
[2023-06-24] MEDS: MELATONIN 5 MG TABLETS PO SCH (21:04)
[2023-06-25] MEDS: methaDONE 80 MG, methaDONE 10 MG PO SCH (05:56)
[2023-06-25] MEDS: FERROUS SO4 325 MG TABLET (FP) PO SCH (07:08)
[2023-06-25] MEDS: PRENATAL VITAMINS W/ FOLIC ACID TABLET (FP) PO SCH (09:15)
[2023-06-25] MEDS: PANTOPRAZOLE 40 MG TABLET PO SCH (09:15)
[2023-06-25] MEDS: PREGABALIN 100 MG CAPSULE PO SCH ×2 (09:15→21:15)
[2023-06-25] MEDS: AZITHROMYCIN 250 MG TABLET PO SCH (09:15)
[2023-06-25] MEDS: HYDROCHLOROTHIAZIDE 25 MG TABLET (FP) PO SCH (09:16)
[2023-06-25] MEDS: NICOTINE 21 MG/24 HOURS TOPICAL PATCH TD SCH (09:17)
[2023-06-25] MEDS: NICOTINE POLACRILEX 4 MG GUM BUC PRN (09:18)
[2023-06-25] MEDS: BENZOCAINE/MENTHOL (CHLORASEPTIC ) LOZENGE MM PRN (09:19)
[2023-06-25] MEDS: THIAMINE HCL 100 MG TABLET (FP) PO SCH (21:15)
[2023-06-25] MEDS: MELATONIN 5 MG TABLETS PO SCH (21:15)
[2023-06-25] MEDS: ATORVASTATIN CA 40 MG TABLET (FP) PO SCH (21:15)
[2023-06-25] MEDS: IBUPROFEN 600 MG TABLET (FP) PO PRN (21:16)
[2023-06-26] MEDS: methaDONE 80 MG, methaDONE 10 MG PO SCH (06:17)
[2023-06-26] MEDS: FERROUS SO4 325 MG TABLET (FP) PO SCH (07:00)
[2023-06-26] MEDS: HYDROCHLOROTHIAZIDE 25 MG TABLET (FP) PO SCH (10:07)
[2023-06-26] MEDS: NICOTINE 21 MG/24 HOURS TOPICAL PATCH TD SCH (10:07)
[2023-06-26] MEDS: AZITHROMYCIN 250 MG TABLET PO SCH (10:07)
[2023-06-26] MEDS: PRENATAL VITAMINS W/ FOLIC ACID TABLET (FP) PO SCH (10:07)
[2023-06-26] MEDS: PANTOPRAZOLE 40 MG TABLET PO SCH (10:07)
[2023-06-26] MEDS: PREGABALIN 100 MG CAPSULE PO SCH (10:07)
[2023-06-26] MEDS: LIDOCAINE 4% PATCH TP SCH (13:35)
[2023-06-26] MEDS: MELATONIN 5 MG TABLETS PO SCH (21:16)
[2023-06-26] MEDS: THIAMINE HCL 100 MG TABLET (FP) PO SCH (21:16)
[2023-06-26] MEDS: METHYL SALICYLATE/MENTHOL OINT 30 GM TUBE TP SCH (21:17)
[2023-06-26] MEDS: LIDOCAINE PATCH REMOVAL MC SCH (21:17)
[2023-06-26] MEDS: ATORVASTATIN CA 40 MG TABLET (FP) PO SCH (21:17)
[2023-06-26] MEDS: PREGABALIN 75 MG CAPSULE PO SCH (21:17)
[2023-06-26] MEDS: NICOTINE POLACRILEX 4 MG GUM BUC PRN (21:18)
[2023-06-27] MEDS: methaDONE 80 MG, methaDONE 10 MG PO SCH (06:09)
[2023-06-27] MEDS: FERROUS SO4 325 MG TABLET (FP) PO SCH (07:05)
[2023-06-27] MEDS: PRENATAL VITAMINS W/ FOLIC ACID TABLET (FP) PO SCH (09:53)
[2023-06-27] MEDS: LIDOCAINE 4% PATCH TP SCH (09:54)
[2023-06-27] MEDS: AZITHROMYCIN 250 MG TABLET PO SCH (09:54)
[2023-06-27] MEDS: PANTOPRAZOLE 40 MG TABLET PO SCH (09:54)
[2023-06-27] MEDS: NICOTINE 21 MG/24 HOURS TOPICAL PATCH TD SCH (09:54)
[2023-06-27] MEDS: HYDROCHLOROTHIAZIDE 25 MG TABLET (FP) PO SCH (09:54)
[2023-06-27] MEDS: METHYL SALICYLATE/MENTHOL OINT 30 GM TUBE TP SCH (09:54)
[2023-06-27] MEDS: PREGABALIN 75 MG CAPSULE PO SCH ×2 (09:54→21:07)
[2023-06-27] MEDS: IBUPROFEN 600 MG TABLET (FP) PO PRN ×2 (13:42→21:07)
[2023-06-27] MEDS: ATORVASTATIN CA 40 MG TABLET (FP) PO SCH (21:06)
[2023-06-27] MEDS: THIAMINE HCL 100 MG TABLET (FP) PO SCH (21:06)
[2023-06-27] MEDS: MELATONIN 5 MG TABLETS PO SCH (21:06)
[2023-06-27] MEDS: LIDOCAINE PATCH REMOVAL MC SCH (21:27)
[2023-06-28] MEDS: IBUPROFEN 600 MG TABLET (FP) PO PRN (02:01)
[2023-06-28] MEDS: methaDONE 80 MG, methaDONE 10 MG PO SCH (06:31)
[2023-06-28] MEDS: FERROUS SO4 325 MG TABLET (FP) PO SCH (07:17)
[2023-06-28] MEDS: PRENATAL VITAMINS W/ FOLIC ACID TABLET (FP) PO SCH (09:22)
[2023-06-28] MEDS: LIDOCAINE 4% PATCH TP SCH (09:22)
[2023-06-28] MEDS: PREGABALIN 75 MG CAPSULE PO SCH ×2 (09:22→21:24)
[2023-06-28] MEDS: HYDROCHLOROTHIAZIDE 25 MG TABLET (FP) PO SCH (09:22)
[2023-06-28] MEDS: PANTOPRAZOLE 40 MG TABLET PO SCH (09:22)
[2023-06-28] MEDS: NICOTINE 21 MG/24 HOURS TOPICAL PATCH TD SCH (09:22)
[2023-06-28] MEDS: METHYL SALICYLATE/MENTHOL OINT 30 GM TUBE TP SCH (09:22)
[2023-06-28] MEDS: LIDOCAINE PATCH REMOVAL MC SCH (21:24)
[2023-06-28] MEDS: MELATONIN 5 MG TABLETS PO SCH (21:24)
[2023-06-28] MEDS: THIAMINE HCL 100 MG TABLET (FP) PO SCH (21:24)
[2023-06-28] MEDS: ATORVASTATIN CA 40 MG TABLET (FP) PO SCH (21:24)
[2023-06-28] MEDS: NICOTINE POLACRILEX 4 MG GUM BUC PRN (21:25)
[2023-06-29] MEDS: methaDONE 80 MG, methaDONE 10 MG PO SCH (06:03)
[2023-06-29] MEDS: FERROUS SO4 325 MG TABLET (FP) PO SCH (07:37)
[2023-06-29] MEDS: PRENATAL VITAMINS W/ FOLIC ACID TABLET (FP) PO SCH (10:26)
[2023-06-29] MEDS: NICOTINE 21 MG/24 HOURS TOPICAL PATCH TD SCH (10:27)
[2023-06-29] MEDS: PREGABALIN 75 MG CAPSULE PO SCH ×2 (10:27→21:27)
[2023-06-29] MEDS: PANTOPRAZOLE 40 MG TABLET PO SCH (10:27)
[2023-06-29] MEDS: HYDROCHLOROTHIAZIDE 25 MG TABLET (FP) PO SCH (10:27)
[2023-06-29] MEDS: METHYL SALICYLATE/MENTHOL OINT 30 GM TUBE TP SCH (10:27)
[2023-06-29] MEDS: LIDOCAINE 4% PATCH TP SCH (10:28)
[2023-06-29] MEDS: NICOTINE POLACRILEX 4 MG GUM BUC PRN (10:29)
[2023-06-29] MEDS: MELATONIN 5 MG TABLETS PO SCH (21:27)
[2023-06-29] MEDS: LIDOCAINE PATCH REMOVAL MC SCH (21:27)
[2023-06-29] MEDS: THIAMINE HCL 100 MG TABLET (FP) PO SCH (21:27)
[2023-06-29] MEDS: ATORVASTATIN CA 40 MG TABLET (FP) PO SCH (21:27)
[2023-06-29] MEDS: IBUPROFEN 600 MG TABLET (FP) PO PRN (22:51)
[2023-06-30] MEDS: IBUPROFEN 600 MG TABLET (FP) PO PRN ×2 (02:33→13:36)
[2023-06-30] MEDS: methaDONE 80 MG, methaDONE 10 MG PO SCH (06:16)
[2023-06-30] MEDS: FERROUS SO4 325 MG TABLET (FP) PO SCH (09:00)
[2023-06-30] MEDS: HYDROCHLOROTHIAZIDE 25 MG TABLET (FP) PO SCH (09:09)
[2023-06-30] MEDS: PANTOPRAZOLE 40 MG TABLET PO SCH (09:09)
[2023-06-30] MEDS: PREGABALIN 75 MG CAPSULE PO SCH ×2 (09:09→21:18)
[2023-06-30] MEDS: METHYL SALICYLATE/MENTHOL OINT 30 GM TUBE TP SCH (09:09)
[2023-06-30] MEDS: PRENATAL VITAMINS W/ FOLIC ACID TABLET (FP) PO SCH (09:09)
[2023-06-30] MEDS: LIDOCAINE 4% PATCH TP SCH (09:10)
[2023-06-30] MEDS: NICOTINE 21 MG/24 HOURS TOPICAL PATCH TD SCH (09:10)
[2023-06-30] MEDS: THIAMINE HCL 100 MG TABLET (FP) PO SCH (21:18)
[2023-06-30] MEDS: LIDOCAINE PATCH REMOVAL MC SCH (21:18)
[2023-06-30] MEDS: MELATONIN 5 MG TABLETS PO SCH (21:18)
[2023-06-30] MEDS: ATORVASTATIN CA 40 MG TABLET (FP) PO SCH (21:18)
[2023-07-01] MEDS: methaDONE 80 MG, methaDONE 10 MG PO SCH (06:27)
[2023-07-01] MEDS: FERROUS SO4 325 MG TABLET (FP) PO SCH (07:20)
[2023-07-01] MEDS: LIDOCAINE 4% PATCH TP SCH (09:37)
[2023-07-01] MEDS: PREGABALIN 75 MG CAPSULE PO SCH ×2 (09:37→21:06)
[2023-07-01] MEDS: PANTOPRAZOLE 40 MG TABLET PO SCH (09:37)
[2023-07-01] MEDS: PRENATAL VITAMINS W/ FOLIC ACID TABLET (FP) PO SCH (09:37)
[2023-07-01] MEDS: METHYL SALICYLATE/MENTHOL OINT 30 GM TUBE TP SCH (09:37)
[2023-07-01] MEDS: HYDROCHLOROTHIAZIDE 25 MG TABLET (FP) PO SCH (09:37)
[2023-07-01] MEDS: NICOTINE 21 MG/24 HOURS TOPICAL PATCH TD SCH (09:38)
[2023-07-01] MEDS: MELATONIN 5 MG TABLETS PO SCH (21:06)
[2023-07-01] MEDS: IBUPROFEN 600 MG TABLET (FP) PO PRN (21:06)
[2023-07-01] MEDS: ATORVASTATIN CA 40 MG TABLET (FP) PO SCH (21:06)
[2023-07-01] MEDS: THIAMINE HCL 100 MG TABLET (FP) PO SCH (21:06)
[2023-07-01] MEDS: LIDOCAINE PATCH REMOVAL MC SCH (21:25)
[2023-07-02] MEDS: methaDONE 80 MG, methaDONE 10 MG PO SCH (06:30)
[2023-07-02] MEDS: FERROUS SO4 325 MG TABLET (FP) PO SCH (07:12)
[2023-07-02] MEDS: LIDOCAINE 4% PATCH TP SCH (09:20)
[2023-07-02] MEDS: PREGABALIN 75 MG CAPSULE PO SCH ×2 (09:20→21:16)
[2023-07-02] MEDS: IBUPROFEN 600 MG TABLET (FP) PO PRN ×3 (09:20→21:17)
[2023-07-02] MEDS: METHYL SALICYLATE/MENTHOL OINT 30 GM TUBE TP SCH (09:20)
[2023-07-02] MEDS: PANTOPRAZOLE 40 MG TABLET PO SCH (09:20)
[2023-07-02] MEDS: NICOTINE 21 MG/24 HOURS TOPICAL PATCH TD SCH (09:21)
[2023-07-02] MEDS: PRENATAL VITAMINS W/ FOLIC ACID TABLET (FP) PO SCH (09:21)
[2023-07-02] MEDS: HYDROCHLOROTHIAZIDE 25 MG TABLET (FP) PO SCH (09:21)
[2023-07-02] MEDS: ATORVASTATIN CA 40 MG TABLET (FP) PO SCH (21:17)
[2023-07-02] MEDS: MELATONIN 5 MG TABLETS PO SCH (21:17)
[2023-07-02] MEDS: THIAMINE HCL 100 MG TABLET (FP) PO SCH (21:17)
[2023-07-02] MEDS: LIDOCAINE PATCH REMOVAL MC SCH (21:18)
[2023-07-03] MEDS: methaDONE 80 MG, methaDONE 10 MG PO SCH (06:06)
[2023-07-03] MEDS: FERROUS SO4 325 MG TABLET (FP) PO SCH (07:06)
[2023-07-03] MEDS: NICOTINE 21 MG/24 HOURS TOPICAL PATCH TD SCH (09:30)
[2023-07-03] MEDS: PREGABALIN 75 MG CAPSULE PO SCH ×2 (09:30→21:15)
[2023-07-03] MEDS: LIDOCAINE 4% PATCH TP SCH (09:30)
[2023-07-03] MEDS: PRENATAL VITAMINS W/ FOLIC ACID TABLET (FP) PO SCH (09:30)
[2023-07-03] MEDS: HYDROCHLOROTHIAZIDE 25 MG TABLET (FP) PO SCH (09:30)
[2023-07-03] MEDS: METHYL SALICYLATE/MENTHOL OINT 30 GM TUBE TP SCH (09:30)
[2023-07-03] MEDS: PANTOPRAZOLE 40 MG TABLET PO SCH (09:30)
[2023-07-03] MEDS: ATORVASTATIN CA 40 MG TABLET (FP) PO SCH (21:15)
[2023-07-03] MEDS: MELATONIN 5 MG TABLETS PO SCH (21:15)
[2023-07-03] MEDS: THIAMINE HCL 100 MG TABLET (FP) PO SCH (21:15)
[2023-07-03] MEDS: LIDOCAINE PATCH REMOVAL MC SCH (21:16)
[2023-07-03] MEDS: IBUPROFEN 600 MG TABLET (FP) PO PRN (21:16)
[2023-07-04] MEDS: methaDONE 80 MG, methaDONE 10 MG PO SCH (06:21)
[2023-07-04] MEDS: FERROUS SO4 325 MG TABLET (FP) PO SCH (07:08)
[2023-07-04 07:13] VITALS: TEMP 97.3
[2023-07-04 09:18] VITALS: BP 121/72; PULSE 71; RESP 18
[2023-07-04] MEDS: NICOTINE 21 MG/24 HOURS TOPICAL PATCH TD SCH (09:23)
[2023-07-04] MEDS: HYDROCHLOROTHIAZIDE 25 MG TABLET (FP) PO SCH (09:23)
[2023-07-04] MEDS: PANTOPRAZOLE 40 MG TABLET PO SCH (09:23)
[2023-07-04] MEDS: METHYL SALICYLATE/MENTHOL OINT 30 GM TUBE TP SCH (09:23)
[2023-07-04] MEDS: LIDOCAINE 4% PATCH TP SCH (09:23)
[2023-07-04] MEDS: PRENATAL VITAMINS W/ FOLIC ACID TABLET (FP) PO SCH (09:23)
[2023-07-04] MEDS: PREGABALIN 75 MG CAPSULE PO SCH (09:23)
== END 2023-07-04 10:15 | disposition home or self-care (01) | DRG 772 ==
LOC: YASAS 12:52 → Y3W 18:41
PROVIDERS: ADMIT Allergy & Immunology; ATTEND Psychiatry & Neurology Pain Medicine
PROC: HZ42ZZZ Group Counseling for Substance Abuse Treatment, Cognitive-Behavioral (ICD-10-PCS; principal; 2023-06-08)
DX: F14.20 Cocaine dependence, uncomplicated (principal); F11.20 Opioid dependence, uncomplicated; F17.210 Nicotine dependence, cigarettes, uncomplicated; F19.282 Other psychoactive substance dependence with psychoactive substance-induced sleep disorder; F19.24 Other psychoactive substance dependence with psychoactive substance-induced mood disorder; G62.9 Polyneuropathy, unspecified; D64.9 Anemia, unspecified; E78.5 Hyperlipidemia, unspecified; I10 Essential (primary) hypertension; K21.9 Gastro-esophageal reflux disease without esophagitis; K46.9 Unspecified abdominal hernia without obstruction or gangrene; M48.061 Spinal stenosis, lumbar region without neurogenic claudication; M54.50 Low back pain, unspecified; G89.29 Other chronic pain; Z86.19 Personal history of other infectious and parasitic diseases
CPT/HCPCS: 36415; 71046-TC-FY; 80053; 80307; 81003; 85027; 86780; 86803; 87522; 87635

== ENCOUNTER 2023-07-24 02:31 | Emergency (ER) | payer OTHER ==
[2023-07-24 02:56] VITALS: RESP 18; BMI 25.8
[2023-07-24] MEDS ORDERED: ACETAMINOPHEN 1000 MG/100 ML BAG IVPB ONE (03:10)
[2023-07-24] MEDS ORDERED: FAMOTIDINE 20 MG/50 ML IVPB 20 MG/50 ML MG IVPB ONE ×2 (03:10→03:42)
[2023-07-24] MEDS ORDERED: MAG HYDROX/AL HYDROX/SIMETH 30 ML UNIT-DOSE CUP PO ONE (03:10)
[2023-07-24] MEDS ORDERED: SODIUM CHLORIDE 0.9% 500 ML INFUS.BAG IV ONE ×2 (03:10→05:17)
[2023-07-24] MEDS ORDERED: MAG HYDROX/AL HYDROX/SIMETH 30 ML UNIT-DOSE CUP ONE (03:42)
[2023-07-24 03:54] LABS: BASO % 0.5 % (0-2.0); EOS % 3.4 % (0-4.5); HEMATOCRIT 35.7 % (35.4-49); HEMOGLOBIN 12.2 GM/dL (11.7-16.9); LYMPH % 11.9 % (8-40); MCH 29.4 pg (25.7-33.7); MCHC 34.3 g/dl (32.0-35.9); MEAN PLT VOLUME 8.2 fl (7.5-11.1); MONO % 8.9 % (3.8-10.2); NEUT % 75.3 % (42.8-82.8); PLATELET COUNT 187 10^3/uL (134-434); RBC 4.15 M/mm3 (4.00-5.60); RDW 13.9 % (11.9-15.9)
[2023-07-24 04:57] LABS: ALBUMIN 4.2 g/dl (3.4-5.0); BILIRUBIN,TOTAL 0.8 mg/dL (0.2-1); BLOOD UREA NITROGEN 36.7 mg/dL (7-18); CALCIUM 8.9 mg/dL (8.5-10.1); CREATININE 1.6 mg/dL (0.55-1.3); MAGNESIUM 2.4 mg/dL (1.8-2.4); POTASSIUM 4.2 mmol/L (3.5-5.1)
[2023-07-24 13:24] VITALS: BP 111/70; PULSE 78; TEMP 36.7
== END 2023-07-24 12:00 | disposition left against medical advice (07) ==
LOC: JER 02:31
PROC: 3E033GC Introduction of Other Therapeutic Substance into Peripheral Vein, Percutaneous Approach (ICD-10-PCS; principal; 2023-07-24)
PROC: 3E033GC Introduction of Other Therapeutic Substance into Peripheral Vein, Percutaneous Approach (ICD-10-PCS; 2023-07-24)
DX: R10.13 Epigastric pain (principal); R11.10 Vomiting, unspecified; F19.10 Other psychoactive substance abuse, uncomplicated
CPT/HCPCS: 36415; 70450-TC; 71045-TC-FY; 74176-TC; 76705-TC; 80053; 83605; 83690; 83735; 84484; 85025; 87635; 93005; 93010; 99285-25

== ENCOUNTER 2023-07-26 12:18 | Emergency (ER) | payer OTHER ==
[2023-07-26 12:28] VITALS: BP 122/71; PULSE 64; RESP 17; TEMP 98.6; BMI 23.5
[2023-07-26 13:56] LABS: BASO % 0.5 % (0-2.0); EOS % 1.4 % (0-4.5); HEMATOCRIT 30.4 % (35.4-49); HEMOGLOBIN 10.3 GM/dL (11.7-16.9); LYMPH % 14.4 % (8-40); MCH 29.3 pg (25.7-33.7); MCHC 33.8 g/dl (32.0-35.9); MEAN CELL VOLUME 86.7 fl (80-96); MEAN PLT VOLUME 7.7 fl (7.5-11.1); MONO % 7.4 % (3.8-10.2); NEUT % 76.3 % (42.8-82.8); PLATELET COUNT 157 10^3/uL (134-434); RBC 3.51 M/mm3 (4.00-5.60); RDW 13.7 % (11.9-15.9); WHITE BLOOD COUNT 4.5 K/mm3 (4.0-10.0)
[2023-07-26 14:14] LABS: POTASSIUM 3.9 mmol/L (3.5-5.1)
[2023-07-26 14:17] LABS: ALBUMIN 3.6 g/dl (3.4-5.0); CALCIUM 8.9 mg/dL (8.5-10.1)
[2023-07-26 14:18] LABS: BLOOD UREA NITROGEN 22.3 mg/dL (7-18)
[2023-07-26 14:22] LABS: BILIRUBIN,TOTAL 0.6 mg/dL (0.2-1)
== END 2023-07-26 15:38 | disposition home or self-care (01) ==
LOC: JERFT 12:18
DX: Z00.00 Encounter for general adult medical examination without abnormal findings (principal)
CPT/HCPCS: 36415; 80053; 85025; 93005; 93010; 99284-25

== ENCOUNTER 2023-08-01 10:06 | Inpatient (IN) | payer OTHER ==
[2023-08-01 10:21] VITALS: BMI 24.1
[2023-08-01] MEDS ORDERED: NICOTINE POLACRILEX 2 MG GUM BUC PRN (13:08)
[2023-08-01] MEDS ORDERED: POLYETHYLENE GLYCOL (HEALTHYLAX) 3350 17 GM PACKET PO PRN (13:08)
[2023-08-01] MEDS ORDERED: IBUPROFEN 400 MG TABLET (FP) PO PRN (13:08)
[2023-08-01] MEDS ORDERED: guaiFENesin 600 MG TABLET.ER (FP) PO PRN (13:08)
[2023-08-01] MEDS ORDERED: MAGNESIUM HYDROX 2400MG/30ML ORAL SUSPENSION 30 ML CUP PO PRN (13:08)
[2023-08-01] MEDS ORDERED: BENZONATATE 200 MG CAPSULE PO PRN (13:08)
[2023-08-01] MEDS ORDERED: NALOXONE HCL (KLOXXADO) 8 MG SPRAY NS PRN (13:08)
[2023-08-01] MEDS ORDERED: BENZOCAINE/MENTHOL (CHLORASEPTIC ) LOZENGE MM PRN (13:08)
[2023-08-01] MEDS ORDERED: NALOXONE HCL 0.4 MG/ML VIAL IM PRN (13:08)
[2023-08-01] MEDS ORDERED: hydrOXYzine PAMOATE 25 MG CAPSULE (FP) PO PRN (13:08)
[2023-08-01] MEDS ORDERED: ACETAMINOPHEN 325 MG TABLET (FP) PO PRN (13:08)
[2023-08-01] MEDS ORDERED: MAG HYDROX/AL HYDROX/SIMETH 30 ML UNIT-DOSE CUP PO PRN (13:08)
[2023-08-01] MEDS ORDERED: COLLOIDAL OATMEAL 1 BAR EACH TP PRN (13:08)
[2023-08-01] MEDS ORDERED: LOPERAMIDE HCL 2 MG CAPSULE PO PRN (13:08)
[2023-08-01] MEDS: IBUPROFEN 600 MG TABLET (FP) PO PRN (21:12)
[2023-08-01] MEDS ORDERED: THIAMINE HCL 100 MG TABLET (FP) PO SCH (22:00)
[2023-08-01] MEDS ORDERED: MELATONIN 5 MG TABLETS PO SCH (22:00)
[2023-08-02] MEDS: IBUPROFEN 600 MG TABLET (FP) PO PRN (03:48)
[2023-08-02] MEDS ORDERED: methaDONE HCL 10 MG TABLET PO SCH (06:00)
[2023-08-02 06:31] VITALS: BP 110/70; PULSE 71; RESP 16; TEMP 97.3
[2023-08-02] MEDS ORDERED: PRENATAL VITAMINS W/ FOLIC ACID TABLET (FP) PO SCH (10:00)
[2023-08-02] MEDS ORDERED: NICOTINE 21 MG/24 HOURS TOPICAL PATCH TD SCH (10:00)
[2023-08-02 11:23] LABS: HEMATOCRIT 32.2 % (35.4-49); HEMOGLOBIN 11.2 GM/dL (11.7-16.9); MCH 30.2 pg (25.7-33.7); MCHC 34.9 g/dl (32.0-35.9); MEAN CELL VOLUME 86.4 fl (80-96); MEAN PLT VOLUME 8.1 fl (7.5-11.1); PLATELET COUNT 191 10^3/uL (134-434); RBC 3.72 M/mm3 (4.00-5.60); RDW 13.4 % (11.9-15.9); WHITE BLOOD COUNT 4.3 K/mm3 (4.0-10.0)
[2023-08-02 11:58] LABS: POTASSIUM 3.6 mmol/L (3.5-5.1)
[2023-08-02 12:01] LABS: BLOOD UREA NITROGEN 19.4 mg/dL (7-18); CALCIUM 8.5 mg/dL (8.5-10.1)
[2023-08-02 12:02] LABS: ALBUMIN 3.5 g/dl (3.4-5.0)
[2023-08-02 12:05] LABS: CREATININE 1.1 mg/dL (0.55-1.3)
[2023-08-02 12:06] LABS: BILIRUBIN,TOTAL 0.5 mg/dL (0.2-1); TOT PROT 6.9 g/dl (6.4-8.2)
== END 2023-08-02 06:20 | disposition left against medical advice (07) | DRG 770 ==
LOC: YASAS 10:06 → Y3E 15:47
PROVIDERS: ADMIT Allergy & Immunology; ATTEND Psychiatry & Neurology Pain Medicine
PROC: HZ42ZZZ Group Counseling for Substance Abuse Treatment, Cognitive-Behavioral (ICD-10-PCS; principal; 2023-08-01)
DX: F11.20 Opioid dependence, uncomplicated (principal); F14.20 Cocaine dependence, uncomplicated; F17.210 Nicotine dependence, cigarettes, uncomplicated; F41.9 Anxiety disorder, unspecified; B18.2 Chronic viral hepatitis C; E78.5 Hyperlipidemia, unspecified; I10 Essential (primary) hypertension; I83.011 Varicose veins of right lower extremity with ulcer of thigh; L97.919 Non-pressure chronic ulcer of unspecified part of right lower leg with unspecified severity; K21.9 Gastro-esophageal reflux disease without esophagitis
CPT/HCPCS: 36415; 80053; 80307; 85027; 86780; 87635; 87811

== ENCOUNTER 2023-08-10 14:00 | Inpatient (IN) | payer OTHER ==
[2023-08-10 15:04] VITALS: BMI 32.8
[2023-08-10] MEDS ORDERED: TRIMETHOBENZAMIDE HCL 200MG/2ML INJ IM ONE ×2 (20:46→21:00)
[2023-08-10] MEDS ORDERED: MAG HYDROX/AL HYDROX/SIMETH 30 ML UNIT-DOSE CUP PO PRN (23:48)
[2023-08-10] MEDS ORDERED: BENZOCAINE/MENTHOL (CHLORASEPTIC ) LOZENGE MM PRN (23:48)
[2023-08-10] MEDS ORDERED: BISMUTH SUBSALICYLATE 524 MG/30 ML PO PRN (23:48)
[2023-08-10] MEDS ORDERED: LOPERAMIDE HCL 2 MG CAPSULE PO PRN (23:48)
[2023-08-10] MEDS ORDERED: DICYCLOMINE HCL 10 MG CAPSULE PO PRN (23:48)
[2023-08-10] MEDS ORDERED: ONDANSETRON *ODT* 4 MG TABLET SL PRN (23:48)
[2023-08-10] MEDS ORDERED: MAGNESIUM HYDROX 2400MG/30ML ORAL SUSPENSION 30 ML CUP PO PRN (23:48)
[2023-08-10] MEDS ORDERED: NALOXONE HCL 0.4 MG/ML VIAL IM PRN (23:48)
[2023-08-10] MEDS ORDERED: BENZONATATE 200 MG CAPSULE PO PRN (23:48)
[2023-08-10] MEDS ORDERED: NALOXONE HCL (KLOXXADO) 8 MG SPRAY NS PRN (23:48)
[2023-08-10] MEDS ORDERED: IBUPROFEN 400 MG TABLET (FP) PO PRN (23:48)
[2023-08-10] MEDS ORDERED: P-EPHED 60MG/TRIPROLIDI 2.5MG TABLET PO PRN (23:48)
[2023-08-10] MEDS ORDERED: POLYETHYLENE GLYCOL (HEALTHYLAX) 3350 17 GM PACKET PO PRN (23:48)
[2023-08-10] MEDS ORDERED: guaiFENesin 600 MG TABLET.ER (FP) PO PRN (23:48)
[2023-08-11] MEDS: BACITRACIN 0.9 GM PACKET TP SCH ×3 (00:50→21:58)
[2023-08-11] MEDS: ACETAMINOPHEN 325 MG TABLET (FP) PO PRN ×2 (07:55→19:33)
[2023-08-11] MEDS: PRENATAL VITAMINS W/ FOLIC ACID TABLET (FP) PO SCH (10:27)
[2023-08-11] MEDS: NICOTINE 14 MG/24 HOURS TOPICAL PATCH TD SCH (10:28)
[2023-08-11] MEDS: methaDONE HCL 40 MG DISPERSABLE TABLET PO SCH (10:28)
[2023-08-11] MEDS: THIAMINE HCL 100 MG TABLET (FP) PO SCH (21:58)
[2023-08-11] MEDS: IBUPROFEN 600 MG TABLET (FP) PO PRN (21:59)
[2023-08-12] MEDS: methaDONE HCL 40 MG DISPERSABLE TABLET PO SCH (05:26)
[2023-08-12] MEDS: ACETAMINOPHEN 325 MG TABLET (FP) PO PRN ×3 (05:34→23:03)
[2023-08-12] MEDS ORDERED: ALBUTEROL SO4 HFA INHALER IH PRN (09:28)
[2023-08-12] MEDS: HYDROCHLOROTHIAZIDE 25 MG TABLET (FP) PO SCH (09:36)
[2023-08-12] MEDS: PRENATAL VITAMINS W/ FOLIC ACID TABLET (FP) PO SCH (09:36)
[2023-08-12] MEDS: BACITRACIN 0.9 GM PACKET TP SCH ×2 (09:37→22:15)
[2023-08-12] MEDS: IBUPROFEN 600 MG TABLET (FP) PO PRN (09:37)
[2023-08-12] MEDS: NICOTINE 14 MG/24 HOURS TOPICAL PATCH TD SCH (09:39)
[2023-08-12] MEDS: FAMOTIDINE 20 MG TABLET PO SCH (09:50)
[2023-08-12] MEDS: THIAMINE HCL 100 MG TABLET (FP) PO SCH (22:15)
[2023-08-13] MEDS: IBUPROFEN 600 MG TABLET (FP) PO PRN (03:53)
[2023-08-13] MEDS: ACETAMINOPHEN 325 MG TABLET (FP) PO PRN (05:35)
[2023-08-13] MEDS: methaDONE HCL 40 MG DISPERSABLE TABLET PO SCH (05:40)
[2023-08-13] MEDS: BACITRACIN 0.9 GM PACKET TP SCH ×2 (10:02→22:15)
[2023-08-13] MEDS: HYDROCHLOROTHIAZIDE 25 MG TABLET (FP) PO SCH (10:03)
[2023-08-13] MEDS: PRENATAL VITAMINS W/ FOLIC ACID TABLET (FP) PO SCH (10:03)
[2023-08-13] MEDS: FAMOTIDINE 20 MG TABLET PO SCH (10:03)
[2023-08-13] MEDS: NICOTINE 14 MG/24 HOURS TOPICAL PATCH TD SCH (10:15)
[2023-08-13] MEDS: THIAMINE HCL 100 MG TABLET (FP) PO SCH (22:15)
[2023-08-14] MEDS: ACETAMINOPHEN 325 MG TABLET (FP) PO PRN (00:59)
[2023-08-14 05:46] VITALS: RESP 18
[2023-08-14] MEDS: methaDONE HCL 40 MG DISPERSABLE TABLET PO SCH (05:50)
[2023-08-14] MEDS: IBUPROFEN 600 MG TABLET (FP) PO PRN (05:51)
[2023-08-14 09:18] VITALS: BP 108/61; PULSE 69; TEMP 98.7
[2023-08-14] MEDS: BACITRACIN 0.9 GM PACKET TP SCH (09:52)
[2023-08-14] MEDS: PRENATAL VITAMINS W/ FOLIC ACID TABLET (FP) PO SCH (09:52)
[2023-08-14] MEDS: FAMOTIDINE 20 MG TABLET PO SCH (09:52)
[2023-08-14] MEDS: NICOTINE 14 MG/24 HOURS TOPICAL PATCH TD SCH (09:52)
[2023-08-14] MEDS: HYDROCHLOROTHIAZIDE 25 MG TABLET (FP) PO SCH (09:52)
[2023-08-14 10:57] LABS: CHOLESTEROL 177 mg/dL (50-200)
[2023-08-14 10:58] LABS: LDL CHOLESTEROL (ONLY SJRH) 88 mg/dL (5-100)
[2023-08-14 11:00] LABS: HDL CHOLESTEROL 45 mg/dL (40-60)
== END 2023-08-14 11:05 | disposition home or self-care (01) | DRG 773 ==
LOC: YASAS 14:00 → Y3E 22:35 → UNDOADMIN 22:35 → Y6N 23:52
PROVIDERS: ADMIT Allergy & Immunology; ATTEND Psychiatry & Neurology Pain Medicine
PROC: HZ2ZZZZ Detoxification Services for Substance Abuse Treatment (ICD-10-PCS; principal; 2023-08-10)
DX: F11.20 Opioid dependence, uncomplicated (principal); F14.20 Cocaine dependence, uncomplicated; F17.213 Nicotine dependence, cigarettes, with withdrawal; I10 Essential (primary) hypertension; J45.20 Mild intermittent asthma, uncomplicated; B33.8 Other specified viral diseases; B97.4 Respiratory syncytial virus as the cause of diseases classified elsewhere; K21.9 Gastro-esophageal reflux disease without esophagitis; B18.2 Chronic viral hepatitis C
CPT/HCPCS: 0241U-QW; 36415; 80061; 87811; 93005; 93010

== ENCOUNTER 2023-08-14 21:27 | Inpatient (IN) | payer OTHER ==
[2023-08-14 21:42] VITALS: BMI 24.3
[2023-08-14] MEDS ORDERED: methylPREDNISolone NA SUCC 125 MG/2 ML VIAL IVPUSH ONE (22:35)
[2023-08-15] MEDS ORDERED: ALBUTEROL SO4 2.5/IPRATROPIUM 0.5 INH SOL 3 ML VIAL.NEB. NEB ONE (00:02)
[2023-08-15] MEDS ORDERED: methylPREDNISolone NA SUCC 125 MG/2 ML VIAL ONE (00:03)
[2023-08-15 00:08] LABS: INR 1.17 (0.83-1.09); PROTHROMBIN TIME (PATIENT) 13.6 SEC (9.7-13.0)
[2023-08-15] MEDS: ALBUTEROL SO4 2.5/IPRATROPIUM 0.5 INH SOL 3 ML VIAL.NEB. NEB SCH ×6 (00:09→20:05)
[2023-08-15 00:21] LABS: POTASSIUM 4.9 mmol/L (3.5-5.1)
[2023-08-15 00:23] LABS: CALCIUM 9.5 mg/dL (8.5-10.1)
[2023-08-15 00:24] LABS: BLOOD UREA NITROGEN 28.6 mg/dL (7-18); MAGNESIUM 2.2 mg/dL (1.8-2.4)
[2023-08-15 00:27] LABS: BILIRUBIN,TOTAL 0.4 mg/dL (0.2-1); CREATININE 1.7 mg/dL (0.55-1.3); TOT PROT 8.3 g/dl (6.4-8.2)
[2023-08-15] MEDS ORDERED: ACETAMINOPHEN 1000 MG/100 ML BAG IVPB ONE (00:43)
[2023-08-15 00:55] LABS: BASO % 0.6 % (0-2.0); EOS % 0.5 % (0-4.5); HEMATOCRIT 32.8 % (35.4-49); HEMOGLOBIN 11.2 GM/dL (11.7-16.9); LYMPH % 19.2 % (8-40); MCH 28.9 pg (25.7-33.7); MCHC 34.2 g/dl (32.0-35.9); MEAN CELL VOLUME 84.4 fl (80-96); MEAN PLT VOLUME 7.2 fl (7.5-11.1); MONO % 9.8 % (3.8-10.2); NEUT % 69.9 % (42.8-82.8); PLATELET COUNT 256 10^3/uL (134-434); RBC 3.88 M/mm3 (4.00-5.60); RDW 13.8 % (11.9-15.9); WHITE BLOOD COUNT 9.2 K/mm3 (4.0-10.0)
[2023-08-15] MEDS ORDERED: ACETAMINOPHEN INJECTION 100 ML IVPB ONE (01:06)
[2023-08-15] MEDS ORDERED: LACTATED RINGERS SOLUTION 1000 ML INFUS.BAG IV ONE (02:20)
[2023-08-15] MEDS ORDERED: PANTOPRAZOLE SODIUM 40 MG VIAL IVPUSH ONE (04:08)
[2023-08-15] MEDS ORDERED: PANTOPRAZOLE SODIUM 40 MG/100 ML BAG IVPB ONE (04:13)
[2023-08-15] MEDS ORDERED: SENNOSIDES 8.8 MG/5 ML SYRUP PO ONE (04:26)
[2023-08-15] MEDS ORDERED: ALBUTEROL SO4 2.5/IPRATROPIUM 0.5 INH SOL 3 ML VIAL.NEB. NEB PRN (05:11)
[2023-08-15] MEDS ORDERED: NALOXONE HCL 0.4 MG/ML VIAL IVPUSH PRN (05:16)
[2023-08-15] MEDS: HEPARIN NA (PORCINE) 5,000 UNITS/ML 1ML VIAL SQ SCH ×3 (05:29→21:38)
[2023-08-15] MEDS ORDERED: SODIUM CHLORIDE 1,000 ML IV SCH (05:45)
[2023-08-15] MEDS ORDERED: methaDONE HCL 10 MG TABLET PO SCH (06:00)
[2023-08-15] MEDS: SODIUM CHLORIDE 1,000 ML IV SCH ×2 (06:33→16:25)
[2023-08-15] MEDS ORDERED: ALBUTEROL SO4 HFA INHALER IH PRN (06:54)
[2023-08-15] MEDS: methaDONE HCL 40 MG DISPERSABLE TABLET PO SCH (09:43)
[2023-08-15] MEDS: FAMOTIDINE 20 MG TABLET PO SCH (09:44)
[2023-08-15] MEDS: predniSONE 20 MG TABLET (UD) PO SCH (09:44)
[2023-08-15] MEDS: POLYETHYLENE GLYCOL (HEALTHYLAX) 3350 17 GM PACKET PO SCH ×2 (09:44→21:39)
[2023-08-15] MEDS: NICOTINE 21 MG/24 HOURS TOPICAL PATCH TD SCH (09:44)
[2023-08-15] MEDS ORDERED: methylPREDNISolone NA SUCC 40 MG/1 ML VIAL IVPUSH SCH (10:00)
[2023-08-15 10:18] LABS: HEMATOCRIT 31.2 % (35.4-49); HEMOGLOBIN 10.5 GM/dL (11.7-16.9); MCH 28.6 pg (25.7-33.7); MCHC 33.6 g/dl (32.0-35.9); MEAN CELL VOLUME 85.2 fl (80-96); MEAN PLT VOLUME 7.5 fl (7.5-11.1); PLATELET COUNT 237 10^3/uL (134-434); POTASSIUM 4.5 mmol/L (3.5-5.1); RBC 3.66 M/mm3 (4.00-5.60); RDW 13.4 % (11.9-15.9); WHITE BLOOD COUNT 5.5 K/mm3 (4.0-10.0)
[2023-08-15 10:27] LABS: ALBUMIN 3.3 g/dl (3.4-5.0); MAGNESIUM 2.4 mg/dL (1.8-2.4)
[2023-08-15 10:30] LABS: CREATININE 1.4 mg/dL (0.55-1.3); PHOSPHOROUS 3.8 mg/dL (2.5-4.9)
[2023-08-15 10:33] LABS: BILIRUBIN,TOTAL 0.3 mg/dL (0.2-1); TOT PROT 7.1 g/dl (6.4-8.2)
[2023-08-15] MEDS: BACITRACIN/POLYMYXIN B SULFATE 15 GM TUBE TP SCH ×2 (12:03→21:39)
[2023-08-15] MEDS ORDERED: ATORVASTATIN CA 40 MG TABLET (FP) PO SCH (22:00)
[2023-08-16] MEDS: SODIUM CHLORIDE 1,000 ML IV SCH (05:19)
[2023-08-16] MEDS: methaDONE HCL 40 MG DISPERSABLE TABLET PO SCH (05:27)
[2023-08-16] MEDS: HEPARIN NA (PORCINE) 5,000 UNITS/ML 1ML VIAL SQ SCH ×2 (05:28→13:17)
[2023-08-16] MEDS: ALBUTEROL SO4 2.5/IPRATROPIUM 0.5 INH SOL 3 ML VIAL.NEB. NEB SCH ×2 (07:15→11:20)
[2023-08-16] MEDS: BACITRACIN/POLYMYXIN B SULFATE 15 GM TUBE TP SCH (09:21)
[2023-08-16] MEDS: FAMOTIDINE 20 MG TABLET PO SCH (09:21)
[2023-08-16] MEDS: NICOTINE 21 MG/24 HOURS TOPICAL PATCH TD SCH (09:21)
[2023-08-16] MEDS: predniSONE 20 MG TABLET (UD) PO SCH (09:21)
[2023-08-16] MEDS: POLYETHYLENE GLYCOL (HEALTHYLAX) 3350 17 GM PACKET PO SCH (09:21)
[2023-08-16 09:28] LABS: MCH 28.8 pg (25.7-33.7); MCHC 33.5 g/dl (32.0-35.9); MEAN CELL VOLUME 85.9 fl (80-96); MEAN PLT VOLUME 7.8 fl (7.5-11.1); PLATELET COUNT 210 10^3/uL (134-434); RBC 3.49 M/mm3 (4.00-5.60); RDW 13.7 % (11.9-15.9); WHITE BLOOD COUNT 9.1 K/mm3 (4.0-10.0)
[2023-08-16 09:33] VITALS: BP 107/66; PULSE 63; RESP 18; TEMP 98.8
[2023-08-16 10:29] LABS: POTASSIUM 4.3 mmol/L (3.5-5.1)
[2023-08-16 10:45] LABS: CALCIUM 9.2 mg/dL (8.5-10.1)
[2023-08-16 10:46] LABS: BLOOD UREA NITROGEN 27.5 mg/dL (7-18)
[2023-08-16 10:49] LABS: CREATININE 1.1 mg/dL (0.55-1.3)
== END 2023-08-16 14:06 | disposition other institution (70) | DRG 140 ==
LOC: JER 21:27 → JERBED 08-15 00:01 → J5S 08-15 04:35 → OBSVTOIN 08-15 13:36
PROVIDERS: ADMIT Internal Medicine; ATTEND Internal Medicine
DX: J44.1 Chronic obstructive pulmonary disease with (acute) exacerbation (principal); F41.9 Anxiety disorder, unspecified; N17.9 Acute kidney failure, unspecified; I10 Essential (primary) hypertension; D64.9 Anemia, unspecified; M51.36 Other intervertebral disc degeneration, lumbar region; K21.9 Gastro-esophageal reflux disease without esophagitis; S60.512A Abrasion of left hand, initial encounter; S60.511A Abrasion of right hand, initial encounter; F17.210 Nicotine dependence, cigarettes, uncomplicated; F11.20 Opioid dependence, uncomplicated; N43.3 Hydrocele, unspecified; M54.50 Low back pain, unspecified; X58.XXXA Exposure to other specified factors, initial encounter; Y93.9 Activity, unspecified; Y92.9 Unspecified place or not applicable; Y99.9 Unspecified external cause status; Z59.00 Homelessness unspecified
CPT/HCPCS: 0241U-QW; 36415; 71045-TC-FY; 73130-TC-LT-FY; 73130-TC-RT-FY; 73140-TC-LT-FY; 73140-TC-RT-FY; 80048; 80053; 82728; 83540; 83550; 83735; 84100; 84466; 84484; 85025; 85027; 85045; 85610; 85730; 87040; 93005; 93010; 94640; 94761; 99285-25; G0378; J1644

== ENCOUNTER 2023-08-16 15:49 | Inpatient (IN) | payer OTHER ==
[2023-08-16 17:30] VITALS: BMI 24.3
[2023-08-16] MEDS ORDERED: POLYETHYLENE GLYCOL (HEALTHYLAX) 3350 17 GM PACKET PO PRN (17:47)
[2023-08-16] MEDS ORDERED: MAGNESIUM HYDROX 2400MG/30ML ORAL SUSPENSION 30 ML CUP PO PRN (17:47)
[2023-08-16] MEDS ORDERED: BENZOCAINE/MENTHOL (CHLORASEPTIC ) LOZENGE MM PRN (17:47)
[2023-08-16] MEDS ORDERED: NALOXONE HCL 0.4 MG/ML VIAL IM PRN (17:47)
[2023-08-16] MEDS ORDERED: BENZONATATE 200 MG CAPSULE PO PRN (17:47)
[2023-08-16] MEDS ORDERED: COLLOIDAL OATMEAL 1 BAR EACH TP PRN (17:47)
[2023-08-16] MEDS ORDERED: NALOXONE HCL (KLOXXADO) 8 MG SPRAY NS PRN (17:47)
[2023-08-16] MEDS ORDERED: guaiFENesin 600 MG TABLET.ER (FP) PO PRN (17:47)
[2023-08-16] MEDS ORDERED: IBUPROFEN 400 MG TABLET (FP) PO PRN (17:47)
[2023-08-16] MEDS ORDERED: LOPERAMIDE HCL 2 MG CAPSULE PO PRN (17:47)
[2023-08-16] MEDS ORDERED: MELATONIN 5 MG TABLETS PO SCH (22:00)
[2023-08-16] MEDS: THIAMINE HCL 100 MG TABLET (FP) PO SCH (22:03)
[2023-08-16] MEDS: NICOTINE POLACRILEX 2 MG GUM BUC PRN (22:04)
[2023-08-16] MEDS: MAG HYDROX/AL HYDROX/SIMETH 30 ML UNIT-DOSE CUP PO PRN (22:05)
[2023-08-16] MEDS ORDERED: ALBUTEROL SO4 HFA INHALER IH PRN (23:11)
[2023-08-16] MEDS ORDERED: FAMOTIDINE 20 MG TABLET PO ONE (23:14)
[2023-08-17] MEDS: IBUPROFEN 600 MG TABLET (FP) PO PRN (02:48)
[2023-08-17] MEDS: methaDONE HCL 40 MG DISPERSABLE TABLET PO SCH (07:08)
[2023-08-17] MEDS: predniSONE 20 MG TABLET (UD) PO SCH (09:16)
[2023-08-17] MEDS: FAMOTIDINE 20 MG TABLET PO SCH (09:16)
[2023-08-17] MEDS: PRENATAL VITAMINS W/ FOLIC ACID TABLET (FP) PO SCH (09:16)
[2023-08-17] MEDS: NICOTINE 21 MG/24 HOURS TOPICAL PATCH TD SCH (09:16)
[2023-08-17 10:33] LABS: HEMOGLOBIN 10.7 GM/dL (11.7-16.9); MCH 28.9 pg (25.7-33.7); MCHC 33.3 g/dl (32.0-35.9); MEAN CELL VOLUME 86.8 fl (80-96); MEAN PLT VOLUME 8.2 fl (7.5-11.1); PLATELET COUNT 255 10^3/uL (134-434); RBC 3.69 M/mm3 (4.00-5.60); RDW 13.8 % (11.9-15.9); WHITE BLOOD COUNT 7.4 K/mm3 (4.0-10.0)
[2023-08-17 11:21] LABS: CHLORIDE 108 mmol/L (98-107); POTASSIUM 3.8 mmol/L (3.5-5.1); SODIUM 141 mmol/L (136-145)
[2023-08-17 11:32] LABS: ALBUMIN 3.5 g/dl (3.4-5.0); ANION GAP 7 mmol/L (4-13); BLOOD UREA NITROGEN 30.8 mg/dL (7-18); CALCIUM 9.1 mg/dL (8.5-10.1); CO2 26 mmol/L (21-32); GLUCOSE,RANDOM 102 mg/dL (74-106)
[2023-08-17 11:33] LABS: SGPT/ALT 23 U/L (13-61)
[2023-08-17 11:35] LABS: CREATININE 1.1 mg/dL (0.55-1.3); SGOT/AST 13 U/L (15-37); TOT PROT 7.3 g/dl (6.4-8.2)
[2023-08-17 11:37] LABS: ALK PHOS 95 U/L (45-117); BILIRUBIN,TOTAL 0.3 mg/dL (0.2-1)
[2023-08-17 13:18] LABS: URINE APPEARANCE CLEAR; URINE BILIRUBIN NEGATIVE (NEGATIVE); URINE COLOR YELLOW; URINE GLUCOSE (UA) NEGATIVE (NEGATIVE); URINE KETONE NEGATIVE (NEGATIVE); URINE LEUK ESTERASE NEGATIVE (NEGATIVE); URINE NITRITE NEGATIVE (NEGATIVE); URINE PROTEIN NEGATIVE (NEGATIVE)
[2023-08-17] MEDS: THIAMINE HCL 100 MG TABLET (FP) PO SCH (21:09)
[2023-08-17] MEDS: MIRTAZAPINE 15 MG TABLET (FP) PO SCH (21:10)
[2023-08-17] MEDS: MAG HYDROX/AL HYDROX/SIMETH 30 ML UNIT-DOSE CUP PO PRN (21:11)
[2023-08-18] MEDS: methaDONE HCL 40 MG DISPERSABLE TABLET PO SCH (06:23)
[2023-08-18] MEDS: predniSONE 20 MG TABLET (UD) PO SCH (09:56)
[2023-08-18] MEDS: FAMOTIDINE 20 MG TABLET PO SCH (09:57)
[2023-08-18] MEDS: NICOTINE 21 MG/24 HOURS TOPICAL PATCH TD SCH (09:57)
[2023-08-18] MEDS: PRENATAL VITAMINS W/ FOLIC ACID TABLET (FP) PO SCH (09:57)
[2023-08-18] MEDS: MIRTAZAPINE 15 MG TABLET (FP) PO SCH (21:20)
[2023-08-18] MEDS: THIAMINE HCL 100 MG TABLET (FP) PO SCH (21:20)
[2023-08-18] MEDS: NICOTINE POLACRILEX 2 MG GUM BUC PRN (21:22)
[2023-08-19] MEDS: methaDONE HCL 40 MG DISPERSABLE TABLET PO SCH (06:12)
[2023-08-19] MEDS: NICOTINE POLACRILEX 2 MG GUM BUC PRN (06:14)
[2023-08-19] MEDS: MAG HYDROX/AL HYDROX/SIMETH 30 ML UNIT-DOSE CUP PO PRN (07:17)
[2023-08-19] MEDS: PRENATAL VITAMINS W/ FOLIC ACID TABLET (FP) PO SCH (09:51)
[2023-08-19] MEDS: predniSONE 20 MG TABLET (UD) PO SCH (09:51)
[2023-08-19] MEDS: FAMOTIDINE 20 MG TABLET PO SCH (09:51)
[2023-08-19] MEDS: NICOTINE 21 MG/24 HOURS TOPICAL PATCH TD SCH (09:52)
[2023-08-19] MEDS: MIRTAZAPINE 15 MG TABLET (FP) PO SCH (21:16)
[2023-08-19] MEDS: THIAMINE HCL 100 MG TABLET (FP) PO SCH (21:16)
[2023-08-19] MEDS: IBUPROFEN 600 MG TABLET (FP) PO PRN (23:37)
[2023-08-20] MEDS: methaDONE HCL 40 MG DISPERSABLE TABLET PO SCH (06:41)
[2023-08-20] MEDS: IBUPROFEN 600 MG TABLET (FP) PO PRN (06:41)
[2023-08-20] MEDS ORDERED: predniSONE 10 MG TABLET (UD) PO ONE ×2 (09:51→09:52)
[2023-08-20] MEDS: NICOTINE 21 MG/24 HOURS TOPICAL PATCH TD SCH (09:53)
[2023-08-20] MEDS: PRENATAL VITAMINS W/ FOLIC ACID TABLET (FP) PO SCH (09:53)
[2023-08-20] MEDS: FAMOTIDINE 20 MG TABLET PO SCH (09:53)
[2023-08-20] MEDS ORDERED: FERROUS SO4 300 MG/5 ML ORAL SOLN UNIT DOSE CUPS PO SCH ×2 (10:00→10:42)
[2023-08-20] MEDS ORDERED: PANTOPRAZOLE 20 MG TABLET PO SCH (10:00)
[2023-08-20] MEDS: PANTOPRAZOLE 20 MG TABLET PO SCH ×2 (17:54→21:14)
[2023-08-20] MEDS: THIAMINE HCL 100 MG TABLET (FP) PO SCH (21:14)
[2023-08-20] MEDS: MIRTAZAPINE 15 MG TABLET (FP) PO SCH (21:15)
[2023-08-20] MEDS: ATORVASTATIN CA 40 MG TABLET (FP) PO SCH (21:15)
[2023-08-20] MEDS: NICOTINE POLACRILEX 2 MG GUM BUC PRN (21:15)
[2023-08-21] MEDS: IBUPROFEN 600 MG TABLET (FP) PO PRN (01:47)
[2023-08-21] MEDS: methaDONE HCL 40 MG DISPERSABLE TABLET PO SCH (06:34)
[2023-08-21] MEDS: PANTOPRAZOLE 20 MG TABLET PO SCH ×2 (09:47→21:17)
[2023-08-21] MEDS: NICOTINE 21 MG/24 HOURS TOPICAL PATCH TD SCH (09:47)
[2023-08-21] MEDS: PRENATAL VITAMINS W/ FOLIC ACID TABLET (FP) PO SCH (09:47)
[2023-08-21] MEDS: NICOTINE POLACRILEX 2 MG GUM BUC PRN ×2 (09:50→21:17)
[2023-08-21] MEDS ORDERED: predniSONE 20 MG TABLET (UD) PO ONE (09:51)
[2023-08-21 11:09] LABS: BASO % 0.4 % (0-2.0); EOS % 0.9 % (0-4.5); HEMATOCRIT 30.8 % (35.4-49); HEMOGLOBIN 10.3 GM/dL (11.7-16.9); LYMPH % 21.2 % (8-40); MCHC 33.5 g/dl (32.0-35.9); MEAN CELL VOLUME 86.5 fl (80-96); MEAN PLT VOLUME 8.3 fl (7.5-11.1); MONO % 11.2 % (3.8-10.2); NEUT % 66.3 % (42.8-82.8); PLATELET COUNT 227 10^3/uL (134-434); RBC 3.56 M/mm3 (4.00-5.60); RDW 13.5 % (11.9-15.9); WHITE BLOOD COUNT 10.4 K/mm3 (4.0-10.0)
[2023-08-21 11:11] LABS: INR 1.03 (0.83-1.09)
[2023-08-21 11:18] LABS: POTASSIUM 3.7 mmol/L (3.5-5.1)
[2023-08-21 11:23] LABS: CALCIUM 8.8 mg/dL (8.5-10.1)
[2023-08-21 11:27] LABS: CREATININE 1.2 mg/dL (0.55-1.3)
[2023-08-21 11:28] LABS: BILIRUBIN,TOTAL 0.2 mg/dL (0.2-1); TOT PROT 6.6 g/dl (6.4-8.2)
[2023-08-21] MEDS: MIRTAZAPINE 15 MG TABLET (FP) PO SCH (21:16)
[2023-08-21] MEDS: THIAMINE HCL 100 MG TABLET (FP) PO SCH (21:17)
[2023-08-21] MEDS: ATORVASTATIN CA 40 MG TABLET (FP) PO SCH (21:17)
[2023-08-22] MEDS: methaDONE HCL 40 MG DISPERSABLE TABLET PO SCH (06:48)
[2023-08-22] MEDS ORDERED: predniSONE 10 MG TABLET (UD) PO ONE (09:53)
[2023-08-22] MEDS: FERROUS SO4 325 MG TABLET (FP) PO SCH (10:03)
[2023-08-22] MEDS: NICOTINE 21 MG/24 HOURS TOPICAL PATCH TD SCH (10:03)
[2023-08-22] MEDS: BACITRACIN 0.9 GM PACKET TP SCH ×2 (10:03→21:09)
[2023-08-22] MEDS: PANTOPRAZOLE 20 MG TABLET PO SCH ×2 (10:03→21:09)
[2023-08-22] MEDS: PRENATAL VITAMINS W/ FOLIC ACID TABLET (FP) PO SCH (10:03)
[2023-08-22] MEDS: NICOTINE POLACRILEX 2 MG GUM BUC PRN (10:04)
[2023-08-22] MEDS: MIRTAZAPINE 15 MG TABLET (FP) PO SCH (21:09)
[2023-08-22] MEDS: ATORVASTATIN CA 40 MG TABLET (FP) PO SCH (21:09)
[2023-08-22] MEDS: THIAMINE HCL 100 MG TABLET (FP) PO SCH (21:09)
[2023-08-23] MEDS: methaDONE HCL 40 MG DISPERSABLE TABLET PO SCH (06:20)
[2023-08-23] MEDS: PRENATAL VITAMINS W/ FOLIC ACID TABLET (FP) PO SCH (09:13)
[2023-08-23] MEDS: BACITRACIN 0.9 GM PACKET TP SCH ×2 (09:13→21:19)
[2023-08-23] MEDS: PANTOPRAZOLE 20 MG TABLET PO SCH ×2 (09:13→21:19)
[2023-08-23] MEDS: NICOTINE 21 MG/24 HOURS TOPICAL PATCH TD SCH (09:14)
[2023-08-23] MEDS: FERROUS SO4 325 MG TABLET (FP) PO SCH (09:14)
[2023-08-23] MEDS ORDERED: predniSONE 5 MG TABLET (UD) PO ONE (09:54)
[2023-08-23] MEDS: MIRTAZAPINE 15 MG TABLET (FP) PO SCH (21:19)
[2023-08-23] MEDS: THIAMINE HCL 100 MG TABLET (FP) PO SCH (21:19)
[2023-08-23] MEDS: ATORVASTATIN CA 40 MG TABLET (FP) PO SCH (21:19)
[2023-08-23] MEDS: ACETAMINOPHEN 325 MG TABLET (FP) PO PRN (21:20)
[2023-08-24] MEDS: ACETAMINOPHEN 325 MG TABLET (FP) PO PRN ×3 (01:00→23:57)
[2023-08-24] MEDS: NICOTINE POLACRILEX 2 MG GUM BUC PRN (01:02)
[2023-08-24] MEDS: methaDONE HCL 40 MG DISPERSABLE TABLET PO SCH (06:48)
[2023-08-24] MEDS: PANTOPRAZOLE 20 MG TABLET PO SCH ×2 (10:02→21:26)
[2023-08-24] MEDS: BACITRACIN 0.9 GM PACKET TP SCH ×2 (10:02→21:26)
[2023-08-24] MEDS: PRENATAL VITAMINS W/ FOLIC ACID TABLET (FP) PO SCH (10:03)
[2023-08-24] MEDS: FERROUS SO4 325 MG TABLET (FP) PO SCH (10:03)
[2023-08-24] MEDS: NICOTINE 21 MG/24 HOURS TOPICAL PATCH TD SCH (10:03)
[2023-08-24] MEDS: LIDOCAINE 4% PATCH TP SCH (10:21)
[2023-08-24] MEDS: ATORVASTATIN CA 40 MG TABLET (FP) PO SCH (21:26)
[2023-08-24] MEDS: MIRTAZAPINE 15 MG TABLET (FP) PO SCH (21:26)
[2023-08-24] MEDS: THIAMINE HCL 100 MG TABLET (FP) PO SCH (21:26)
[2023-08-24] MEDS: LIDOCAINE PATCH REMOVAL MC SCH (21:26)
[2023-08-25] MEDS: ACETAMINOPHEN 325 MG TABLET (FP) PO PRN ×3 (05:46→23:03)
[2023-08-25] MEDS: methaDONE HCL 40 MG DISPERSABLE TABLET PO SCH (05:47)
[2023-08-25] MEDS: PRENATAL VITAMINS W/ FOLIC ACID TABLET (FP) PO SCH (10:12)
[2023-08-25] MEDS: BACITRACIN 0.9 GM PACKET TP SCH ×2 (10:13→21:20)
[2023-08-25] MEDS: LIDOCAINE 4% PATCH TP SCH (10:13)
[2023-08-25] MEDS: NICOTINE 21 MG/24 HOURS TOPICAL PATCH TD SCH (10:14)
[2023-08-25] MEDS: FERROUS SO4 325 MG TABLET (FP) PO SCH (10:14)
[2023-08-25] MEDS: PANTOPRAZOLE 20 MG TABLET PO SCH ×2 (10:14→21:20)
[2023-08-25] MEDS: MIRTAZAPINE 15 MG TABLET (FP) PO SCH (21:20)
[2023-08-25] MEDS: THIAMINE HCL 100 MG TABLET (FP) PO SCH (21:20)
[2023-08-25] MEDS: LIDOCAINE PATCH REMOVAL MC SCH (21:20)
[2023-08-25] MEDS: ATORVASTATIN CA 40 MG TABLET (FP) PO SCH (21:20)
[2023-08-26] MEDS: methaDONE HCL 40 MG DISPERSABLE TABLET PO SCH (06:38)
[2023-08-26] MEDS: LIDOCAINE 4% PATCH TP SCH (09:36)
[2023-08-26] MEDS: FERROUS SO4 325 MG TABLET (FP) PO SCH (09:37)
[2023-08-26] MEDS: BACITRACIN 0.9 GM PACKET TP SCH ×2 (09:37→21:18)
[2023-08-26] MEDS: NICOTINE 21 MG/24 HOURS TOPICAL PATCH TD SCH (09:37)
[2023-08-26] MEDS: PRENATAL VITAMINS W/ FOLIC ACID TABLET (FP) PO SCH (09:37)
[2023-08-26] MEDS: PANTOPRAZOLE 20 MG TABLET PO SCH ×2 (09:37→21:18)
[2023-08-26] MEDS: ACETAMINOPHEN 325 MG TABLET (FP) PO PRN (21:18)
[2023-08-26] MEDS: MIRTAZAPINE 15 MG TABLET (FP) PO SCH (21:18)
[2023-08-26] MEDS: ATORVASTATIN CA 40 MG TABLET (FP) PO SCH (21:18)
[2023-08-26] MEDS: THIAMINE HCL 100 MG TABLET (FP) PO SCH (21:18)
[2023-08-26] MEDS: NICOTINE POLACRILEX 2 MG GUM BUC PRN (21:19)
[2023-08-26] MEDS: LIDOCAINE PATCH REMOVAL MC SCH (21:19)
[2023-08-27] MEDS: methaDONE HCL 40 MG DISPERSABLE TABLET PO SCH (06:48)
[2023-08-27] MEDS: LIDOCAINE 4% PATCH TP SCH (09:44)
[2023-08-27] MEDS: PANTOPRAZOLE 20 MG TABLET PO SCH ×2 (09:44→21:12)
[2023-08-27] MEDS: PRENATAL VITAMINS W/ FOLIC ACID TABLET (FP) PO SCH (09:44)
[2023-08-27] MEDS: FERROUS SO4 325 MG TABLET (FP) PO SCH (09:44)
[2023-08-27] MEDS: NICOTINE 21 MG/24 HOURS TOPICAL PATCH TD SCH (09:45)
[2023-08-27] MEDS: BACITRACIN 0.9 GM PACKET TP SCH ×2 (09:45→21:12)
[2023-08-27] MEDS: THIAMINE HCL 100 MG TABLET (FP) PO SCH (21:12)
[2023-08-27] MEDS: MIRTAZAPINE 15 MG TABLET (FP) PO SCH (21:12)
[2023-08-27] MEDS: ATORVASTATIN CA 40 MG TABLET (FP) PO SCH (21:12)
[2023-08-27] MEDS: LIDOCAINE PATCH REMOVAL MC SCH (21:52)
[2023-08-28] MEDS: methaDONE HCL 40 MG DISPERSABLE TABLET PO SCH (06:06)
[2023-08-28 07:14] VITALS: TEMP 98.4
[2023-08-28] MEDS: BACITRACIN 0.9 GM PACKET TP SCH ×2 (09:57→21:19)
[2023-08-28] MEDS: FERROUS SO4 325 MG TABLET (FP) PO SCH (09:57)
[2023-08-28] MEDS: PANTOPRAZOLE 20 MG TABLET PO SCH ×2 (09:57→21:18)
[2023-08-28] MEDS: LIDOCAINE 4% PATCH TP SCH (09:57)
[2023-08-28] MEDS: PRENATAL VITAMINS W/ FOLIC ACID TABLET (FP) PO SCH (09:57)
[2023-08-28] MEDS: NICOTINE 21 MG/24 HOURS TOPICAL PATCH TD SCH (09:58)
[2023-08-28] MEDS ORDERED: SIMETHICONE 80 MG TAB.CHEW (FP) PO PRN (13:36)
[2023-08-28] MEDS ORDERED: methaDONE HCL 40 MG DISPERSABLE TABLET PO SCH (13:38)
[2023-08-28] MEDS: GABAPENTIN 100 MG CAPSULE PO SCH ×2 (14:00→21:18)
[2023-08-28] MEDS: ACETAMINOPHEN 325 MG TABLET (FP) PO PRN ×2 (16:25→21:19)
[2023-08-28] MEDS: THIAMINE HCL 100 MG TABLET (FP) PO SCH (21:18)
[2023-08-28] MEDS: MIRTAZAPINE 15 MG TABLET (FP) PO SCH (21:19)
[2023-08-28] MEDS: ATORVASTATIN CA 40 MG TABLET (FP) PO SCH (21:19)
[2023-08-28] MEDS: NICOTINE POLACRILEX 2 MG GUM BUC PRN (21:20)
[2023-08-28] MEDS: LIDOCAINE PATCH REMOVAL MC SCH (21:20)
[2023-08-29] MEDS ORDERED: methaDONE 40 MG, methaDONE 30 MG PO SCH (06:00)
[2023-08-29 07:02] VITALS: PULSE 79; RESP 17
[2023-08-29] MEDS: FERROUS SO4 325 MG TABLET (FP) PO SCH (09:17)
[2023-08-29] MEDS: PRENATAL VITAMINS W/ FOLIC ACID TABLET (FP) PO SCH (09:17)
[2023-08-29] MEDS: GABAPENTIN 100 MG CAPSULE PO SCH ×2 (09:17→21:14)
[2023-08-29] MEDS: BACITRACIN 0.9 GM PACKET TP SCH ×2 (09:17→21:15)
[2023-08-29] MEDS: PANTOPRAZOLE 20 MG TABLET PO SCH ×2 (09:17→21:14)
[2023-08-29] MEDS: NICOTINE 21 MG/24 HOURS TOPICAL PATCH TD SCH (09:17)
[2023-08-29] MEDS: LIDOCAINE 4% PATCH TP SCH (09:17)
[2023-08-29] MEDS: ACETAMINOPHEN 325 MG TABLET (FP) PO PRN ×2 (19:45→23:49)
[2023-08-29] MEDS: MAG HYDROX/AL HYDROX/SIMETH 30 ML UNIT-DOSE CUP PO PRN (20:24)
[2023-08-29] MEDS: THIAMINE HCL 100 MG TABLET (FP) PO SCH (21:15)
[2023-08-29] MEDS: ATORVASTATIN CA 40 MG TABLET (FP) PO SCH (21:15)
[2023-08-29] MEDS: MIRTAZAPINE 15 MG TABLET (FP) PO SCH (21:15)
[2023-08-29] MEDS: LIDOCAINE PATCH REMOVAL MC SCH (21:15)
[2023-08-29 22:32] VITALS: BP 151/83
[2023-08-30] MEDS ORDERED: DICYCLOMINE HCL 10 MG CAPSULE PO ONE (00:02)
[2023-08-30] MEDS ORDERED: methaDONE 40 MG, methaDONE 20 MG PO SCH (06:00)
[2023-08-30] MEDS ORDERED: methaDONE HCL 40 MG DISPERSABLE TABLET PO SCH (06:00)
[2023-08-30] MEDS: BACITRACIN 0.9 GM PACKET TP SCH (11:32)
[2023-08-30] MEDS: LIDOCAINE 4% PATCH TP SCH (11:32)
[2023-08-30] MEDS: FERROUS SO4 325 MG TABLET (FP) PO SCH (11:33)
[2023-08-30] MEDS: GABAPENTIN 100 MG CAPSULE PO SCH (11:33)
[2023-08-30] MEDS: PANTOPRAZOLE 20 MG TABLET PO SCH (11:33)
[2023-08-30] MEDS: NICOTINE 21 MG/24 HOURS TOPICAL PATCH TD SCH (11:33)
[2023-08-30] MEDS: PRENATAL VITAMINS W/ FOLIC ACID TABLET (FP) PO SCH (11:33)
== END 2023-08-30 11:45 | disposition short-term general hospital (02) | DRG 772 ==
LOC: YASAS 15:49 → Y3E 19:25 → Y3W 08-17 10:43
PROVIDERS: ADMIT Allergy & Immunology; ATTEND Psychiatry & Neurology Pain Medicine
PROC: HZ42ZZZ Group Counseling for Substance Abuse Treatment, Cognitive-Behavioral (ICD-10-PCS; principal; 2023-08-16)
DX: F12.20 Cannabis dependence, uncomplicated (principal); F11.20 Opioid dependence, uncomplicated; F19.982 Other psychoactive substance use, unspecified with psychoactive substance-induced sleep disorder; I10 Essential (primary) hypertension; E78.5 Hyperlipidemia, unspecified; R10.9 Unspecified abdominal pain; J45.909 Unspecified asthma, uncomplicated; M54.59 Other low back pain; G89.29 Other chronic pain; K21.9 Gastro-esophageal reflux disease without esophagitis; L02.424 Furuncle of left upper limb; D64.9 Anemia, unspecified; Z86.19 Personal history of other infectious and parasitic diseases; Z56.0 Unemployment, unspecified; Z59.00 Homelessness unspecified
CPT/HCPCS: 36415; 80053; 80307; 81003; 85025; 85027; 85610; 86780; 87635

== ENCOUNTER 2023-08-30 03:20 | Inpatient (IN) | payer OTHER ==
[2023-08-30 03:35] VITALS: BMI 23.7
[2023-08-30] MEDS ORDERED: ACETAMINOPHEN INJECTION 100 ML IVPB ONE (04:08)
[2023-08-30] MEDS ORDERED: FAMOTIDINE 20 MG/50 ML IVPB 20 MG/50 ML MG IVPB ONE (04:08)
[2023-08-30] MEDS: ACETAMINOPHEN 1000 MG/100 ML BAG IVPB ONE (04:12)
[2023-08-30] MEDS: FAMOTIDINE 20 MG/50 ML IVPB 20 MG/50 ML MG IVPB ONE (04:23)
[2023-08-30 04:25] LABS: BASO % 0.4 % (0-2.0); EOS % 0.8 % (0-4.5); HEMOGLOBIN 10.3 GM/dL (11.7-16.9); LYMPH % 12.9 % (8-40); MCH 28.3 pg (25.7-33.7); MCHC 33.4 g/dl (32.0-35.9); MEAN CELL VOLUME 84.8 fl (80-96); MEAN PLT VOLUME 7.3 fl (7.5-11.1); MONO % 11.7 % (3.8-10.2); NEUT % 74.2 % (42.8-82.8); PLATELET COUNT 229 10^3/uL (134-434); RBC 3.65 M/mm3 (4.00-5.60); RDW 13.3 % (11.9-15.9); WHITE BLOOD COUNT 9.8 K/mm3 (4.0-10.0)
[2023-08-30 04:38] LABS: INR 1.19 (0.83-1.09); PROTHROMBIN TIME (PATIENT) 13.8 SEC (9.7-13.0)
[2023-08-30 04:40] LABS: ACTIVATED PTT 32.1 SECONDS (25.2-36.5)
[2023-08-30] MEDS ORDERED: KETOROLAC TROMETHAMINE 30 MG/1 ML VIAL ONE (04:41)
[2023-08-30 04:45] LABS: POTASSIUM 4.1 mmol/L (3.5-5.1)
[2023-08-30] MEDS: KETOROLAC TROMETHAMINE 30 MG/1 ML VIAL IM ONE (04:46)
[2023-08-30 04:47] LABS: CALCIUM 8.8 mg/dL (8.5-10.1)
[2023-08-30 04:48] LABS: ALBUMIN 2.9 g/dl (3.4-5.0); BLOOD UREA NITROGEN 24.6 mg/dL (7-18)
[2023-08-30 04:51] LABS: CREATININE 1.1 mg/dL (0.55-1.3)
[2023-08-30 04:53] LABS: BILIRUBIN,TOTAL 0.3 mg/dL (0.2-1); TOT PROT 7.1 g/dl (6.4-8.2)
[2023-08-30 05:37] LABS: MAGNESIUM 2.2 mg/dL (1.8-2.4)
[2023-08-30] MEDS ORDERED: HYDROmorphone HCl 2 MG/ML VIAL ONE ×3 (05:41→08:33)
[2023-08-30] MEDS ORDERED: ONDANSETRON 4 MG/2 ML VIAL ONE (05:41)
[2023-08-30] MEDS: ONDANSETRON 4 MG/2 ML VIAL IVPUSH ONE (05:46)
[2023-08-30] MEDS: HYDROmorphone HCl 2 MG/ML VIAL IVPUSH ONE ×3 (05:46→08:37)
[2023-08-30] MEDS ORDERED: CEFTRIAXONE 2 GM/100 ML BAG IVPB ONE ×2 (06:49→13:00)
[2023-08-30] MEDS: CEFTRIAXONE 2 GM in DEXTROSE 5%-WATER - 100 ML IVPB ONE (06:57)
[2023-08-30] MEDS: DEXTROSE 5%-LACTATED RINGERS 1,000 ML IV SCH (13:10)
[2023-08-30] MEDS: CEFTRIAXONE 2 GM in DEXTROSE 5%-WATER 100 ML IVPB SCH (13:11)
[2023-08-30] MEDS: morphine SULFATE 4 MG/ML VIAL IVPUSH PRN (17:45)
[2023-08-30] MEDS ORDERED: morphine SULFATE 4 MG/ML VIAL ONE (17:46)
[2023-08-30] MEDS: ACETAMINOPHEN 650 MG/20.3 ML ORAL SOLUTION (CUPS) PO SCH (21:57)
[2023-08-30] MEDS: KETOROLAC TROMETHAMINE 15 MG/ML VIAL IVPUSH SCH (21:58)
[2023-08-31] MEDS: LIDOCAINE PATCH REMOVAL MC SCH ×2 (02:23→22:29)
[2023-08-31] MEDS: TRIMETHOBENZAMIDE HCL 200MG/2ML INJ IM PRN (03:33)
[2023-08-31] MEDS ORDERED: BUPIVACAINE HCL/PF 0.25% (2.5MG/ML) 10 ML VIAL ONE ×2 (08:09→10:33)
[2023-08-31] MEDS: LIDOCAINE 4% PATCH TP SCH (08:39)
[2023-08-31] MEDS ORDERED: LIDOCAINE HCL/PF 2% SDV 5ML VIAL ONE (09:36)
[2023-08-31] MEDS ORDERED: ROCURONIUM BROMIDE 50 MG/5 ML SYRINGE ONE (09:36)
[2023-08-31] MEDS ORDERED: PROPOFOL 20 ML ONE (09:37)
[2023-08-31] MEDS ORDERED: SUCCINYLCHOLINE CHLORIDE 200 MG/10 ML SYRINGE ONE (09:37)
[2023-08-31] MEDS ORDERED: MIDAZOLAM HCL 2 MG/2 ML SINGLE DOSE VIAL ONE (09:37)
[2023-08-31] MEDS ORDERED: CEFOXITIN SODIUM 1 GM IVPB ONE ×2 (09:56→09:59)
[2023-08-31] MEDS ORDERED: DEXAMETHASONE SOD PHOSPHATE 4 MG/1 ML VIAL ONE (10:15)
[2023-08-31] MEDS ORDERED: INDOCYANINE GREEN 25 MG/10 ML VIAL IVPUSH ONE (10:39)
[2023-08-31] MEDS: cefoTEtan DISODIUM 2 GM VIAL (RESTRICTED TO ID) IVPB ONE (10:41)
[2023-08-31] MEDS ORDERED: KETOROLAC TROMETHAMINE 30 MG/1 ML VIAL ONE (11:19)
[2023-08-31] MEDS ORDERED: ONDANSETRON 4 MG/2 ML VIAL ONE (11:19)
[2023-08-31] MEDS: BUPIVACAINE HCL/PF 2.5 MG/ML - 30 ML VIAL IJ ONE (11:26)
[2023-08-31] MEDS: ACETAMINOPHEN 1000 MG/100 ML BAG IVPB ONE ×2 (12:18→13:43)
[2023-08-31] MEDS ORDERED: PROMETHAZINE HCL 25 MG/1 ML VIAL IVPB PRN ×2 (12:21→13:04)
[2023-08-31] MEDS ORDERED: ACETAMINOPHEN INJECTION 100 ML IVPB ONE (12:28)
[2023-08-31] MEDS: LACTATED RINGERS SOLUTION 1,000 ML IV SCH ×2 (13:44→15:07)
[2023-08-31] MEDS: VANCOMYCIN 1,000 MG in DEXTROSE 5%-WATER - 250 ML IVPB SCH (15:00)
[2023-08-31 16:57] LABS: HEMATOCRIT 30.8 % (35.4-49); HEMOGLOBIN 10.1 GM/dL (11.7-16.9); MCH 27.6 pg (25.7-33.7); MCHC 32.9 g/dl (32.0-35.9); MEAN PLT VOLUME 7.9 fl (7.5-11.1); PLATELET COUNT 217 10^3/uL (134-434); RBC 3.67 M/mm3 (4.00-5.60); RDW 13.7 % (11.9-15.9)
[2023-08-31 17:25] LABS: CALCIUM 7.8 mg/dL (8.5-10.1)
[2023-08-31 17:26] LABS: ALBUMIN 2.4 g/dl (3.4-5.0); BLOOD UREA NITROGEN 27.4 mg/dL (7-18); MAGNESIUM 2.2 mg/dL (1.8-2.4)
[2023-08-31 17:29] LABS: CREATININE 1.1 mg/dL (0.55-1.3); PHOSPHOROUS 3.5 mg/dL (2.5-4.9)
[2023-08-31 17:30] LABS: TOT PROT 6.4 g/dl (6.4-8.2)
[2023-08-31 17:31] LABS: BILIRUBIN,TOTAL 0.6 mg/dL (0.2-1)
[2023-08-31] MEDS: KETOROLAC TROMETHAMINE 15 MG/ML VIAL IVPUSH SCH (18:02)
[2023-08-31] MEDS: ACETAMINOPHEN 1000 MG/100 ML BAG IVPB SCH (18:04)
[2023-08-31 19:40] LABS: ANISOCYTOSIS 0; MACROCYTOSIS 1+; OVALOCYTE 1+
[2023-08-31 20:02] LABS: PLATELET ESTIMATE ADEQUATE
[2023-08-31] MEDS ORDERED: LIDOCAINE PATCH REMOVAL MC SCH (22:00)
[2023-09-01 09:13] LABS: HEMATOCRIT 26.4 % (35.4-49); HEMOGLOBIN 8.9 GM/dL (11.7-16.9); MCH 27.6 pg (25.7-33.7); MCHC 33.6 g/dl (32.0-35.9); MEAN CELL VOLUME 82.2 fl (80-96); MEAN PLT VOLUME 7.7 fl (7.5-11.1); PLATELET COUNT 253 10^3/uL (134-434); RBC 3.21 M/mm3 (4.00-5.60); RDW 13.6 % (11.9-15.9)
[2023-09-01 09:32] LABS: POTASSIUM 3.6 mmol/L (3.5-5.1)
[2023-09-01] MEDS: CEFTRIAXONE 2 GM in DEXTROSE 5%-WATER 100 ML IVPB SCH (09:32)
[2023-09-01 09:37] LABS: CREATININE 0.9 mg/dL (0.55-1.3); PHOSPHOROUS 2.7 mg/dL (2.5-4.9)
[2023-09-01 09:39] LABS: BILIRUBIN,TOTAL 0.3 mg/dL (0.2-1); TOT PROT 6.2 g/dl (6.4-8.2)
[2023-09-01 09:41] LABS: ALBUMIN 2.3 g/dl (3.4-5.0)
[2023-09-01] MEDS: LIDOCAINE 4% PATCH TP SCH (09:48)
[2023-09-01 09:49] LABS: BLOOD UREA NITROGEN 38.5 mg/dL (7-18)
[2023-09-01 09:51] LABS: MAGNESIUM 2.4 mg/dL (1.8-2.4)
[2023-09-01] MEDS ORDERED: methaDONE HCL 10 MG TABLET PO SCH (12:15)
[2023-09-01] MEDS: methaDONE 40 MG, methaDONE 30 MG PO SCH (12:20)
[2023-09-01] MEDS: FAMOTIDINE 20 MG/50 ML IVPB 20 MG/50 ML MG IVPB ONE (13:29)
[2023-09-02] MEDS: CEFTRIAXONE 1 GM in DEXTROSE 5%-WATER - 50 ML IVPB SCH (09:39)
[2023-09-02 16:39] LABS: BASO % 0.1 % (0-2.0); EOS % 0.4 % (0-4.5); HEMATOCRIT 27.4 % (35.4-49); HEMOGLOBIN 9.4 GM/dL (11.7-16.9); LYMPH % 13.5 % (8-40); MCH 28.7 pg (25.7-33.7); MCHC 34.3 g/dl (32.0-35.9); MEAN CELL VOLUME 83.5 fl (80-96); MEAN PLT VOLUME 7.8 fl (7.5-11.1); MONO % 7.1 % (3.8-10.2); NEUT % 78.9 % (42.8-82.8); PLATELET COUNT 335 10^3/uL (134-434); RBC 3.29 M/mm3 (4.00-5.60); WHITE BLOOD COUNT 9.7 K/mm3 (4.0-10.0)
[2023-09-02 16:54] LABS: POTASSIUM 3.6 mmol/L (3.5-5.1)
[2023-09-02 16:55] LABS: CALCIUM 8.8 mg/dL (8.5-10.1)
[2023-09-03] MEDS ORDERED: ACETAMINOPHEN 1000 MG/100 ML BAG IVPB PRN ×2 (08:06→09:40)
[2023-09-03] MEDS: AMOX TR/POT CLAV 875MG/125MG TABLETS (FP) PO SCH (10:36)
[2023-09-03] MEDS: MAG HYDROX/AL HYDROX/SIMETH 30 ML UNIT-DOSE CUP PO PRN (10:36)
[2023-09-03] MEDS: KETOROLAC TROMETHAMINE 30 MG/1 ML VIAL IVPUSH ONE (13:04)
[2023-09-03] MEDS: FAMOTIDINE 20 MG/50 ML IVPB 20 MG/50 ML MG IVPB ONE (13:54)
[2023-09-03] MEDS: NICOTINE 21 MG/24 HOURS TOPICAL PATCH TD SCH (23:00)
[2023-09-04] MEDS ORDERED: NICOTINE 21 MG/24 HOURS TOPICAL PATCH TD SCH (10:00)
[2023-09-04] MEDS: PANTOPRAZOLE 40 MG TABLET PO SCH (10:14)
[2023-09-04 10:35] LABS: HEMATOCRIT 28.5 % (35.4-49); HEMOGLOBIN 9.9 GM/dL (11.7-16.9); MCH 28.6 pg (25.7-33.7); MCHC 34.7 g/dl (32.0-35.9); MEAN CELL VOLUME 82.5 fl (80-96); MEAN PLT VOLUME 7.1 fl (7.5-11.1); PLATELET COUNT 373 10^3/uL (134-434); RBC 3.46 M/mm3 (4.00-5.60); RDW 13.9 % (11.9-15.9); WHITE BLOOD COUNT 8.5 K/mm3 (4.0-10.0)
[2023-09-04 10:41] LABS: POTASSIUM 4.2 mmol/L (3.5-5.1)
[2023-09-04 10:42] LABS: BLOOD UREA NITROGEN 21.2 mg/dL (7-18)
[2023-09-04 10:43] LABS: CALCIUM 8.6 mg/dL (8.5-10.1)
[2023-09-04 10:44] LABS: MAGNESIUM 2.1 mg/dL (1.8-2.4)
[2023-09-04 10:45] LABS: PHOSPHOROUS 3.7 mg/dL (2.5-4.9)
[2023-09-04 10:48] LABS: CREATININE 0.9 mg/dL (0.55-1.3)
[2023-09-04] MEDS: VANCOMYCIN/WATER FOR INJ (PEG) 1,000 MG/200 ML BAG IVPB ONE (11:04)
[2023-09-04] MEDS: PIPERACILLIN/TAZOB 3.375 GM 3.375 GM in DEXTROSE 5%-WATER - 50 ML IVPB SCH (14:29)
[2023-09-04] MEDS: ENOXAPARIN NA (PORCINE) 40 MG/0.4 ML DISP.SYRIN SQ SCH (15:13)
[2023-09-05 10:35] LABS: POTASSIUM 4.3 mmol/L (3.5-5.1)
[2023-09-05 10:38] LABS: BASO % 0.4 % (0-2.0); EOS % 2.3 % (0-4.5); HEMATOCRIT 31.3 % (35.4-49); HEMOGLOBIN 10.8 GM/dL (11.7-16.9); LYMPH % 15.9 % (8-40); MCH 28.4 pg (25.7-33.7); MCHC 34.4 g/dl (32.0-35.9); MEAN CELL VOLUME 82.5 fl (80-96); MEAN PLT VOLUME 7.4 fl (7.5-11.1); MONO % 10.8 % (3.8-10.2); NEUT % 70.6 % (42.8-82.8); PLATELET COUNT 464 10^3/uL (134-434); RBC 3.79 M/mm3 (4.00-5.60); RDW 13.7 % (11.9-15.9); WHITE BLOOD COUNT 9.9 K/mm3 (4.0-10.0)
[2023-09-05 10:40] LABS: CALCIUM 8.6 mg/dL (8.5-10.1)
[2023-09-05 10:41] LABS: ALBUMIN 2.5 g/dl (3.4-5.0); BLOOD UREA NITROGEN 20.6 mg/dL (7-18)
[2023-09-05 10:42] LABS: MAGNESIUM 2.4 mg/dL (1.8-2.4)
[2023-09-05 10:45] LABS: BILIRUBIN,TOTAL 0.4 mg/dL (0.2-1); TOT PROT 7.2 g/dl (6.4-8.2)
[2023-09-06] MEDS: LIDOCAINE HCL 1%, 10 MG/ML (20ML VIAL) SQ ONE (10:37)
[2023-09-06 10:45] LABS: BASO % 0.4 % (0-2.0); EOS % 1.5 % (0-4.5); HEMATOCRIT 31.7 % (35.4-49); HEMOGLOBIN 10.8 GM/dL (11.7-16.9); LYMPH % 15.1 % (8-40); MCH 28.2 pg (25.7-33.7); MCHC 34.2 g/dl (32.0-35.9); MEAN CELL VOLUME 82.6 fl (80-96); MEAN PLT VOLUME 7.1 fl (7.5-11.1); MONO % 12.1 % (3.8-10.2); NEUT % 70.9 % (42.8-82.8); PLATELET COUNT 517 10^3/uL (134-434); RBC 3.84 M/mm3 (4.00-5.60); RDW 14.2 % (11.9-15.9); WHITE BLOOD COUNT 9.2 K/mm3 (4.0-10.0)
[2023-09-06 11:12] LABS: POTASSIUM 4.2 mmol/L (3.5-5.1)
[2023-09-06 11:16] LABS: ALBUMIN 2.7 g/dl (3.4-5.0); BLOOD UREA NITROGEN 28.5 mg/dL (7-18); CALCIUM 8.5 mg/dL (8.5-10.1)
[2023-09-06 11:19] LABS: CREATININE 1.1 mg/dL (0.55-1.3)
[2023-09-06 11:20] LABS: BILIRUBIN,TOTAL 0.4 mg/dL (0.2-1); TOT PROT 7.5 g/dl (6.4-8.2)
[2023-09-06] MEDS: SIMETHICONE 80 MG TAB.CHEW (FP) PO PRN (14:47)
[2023-09-07 10:14] LABS: BASO % 0.4 % (0-2.0); EOS % 1.7 % (0-4.5); HEMATOCRIT 33.5 % (35.4-49); LYMPH % 14.6 % (8-40); MCH 27.4 pg (25.7-33.7); MCHC 32.9 g/dl (32.0-35.9); MEAN CELL VOLUME 83.2 fl (80-96); MEAN PLT VOLUME 7.3 fl (7.5-11.1); MONO % 10.9 % (3.8-10.2); NEUT % 72.4 % (42.8-82.8); PLATELET COUNT 626 10^3/uL (134-434); RBC 4.03 M/mm3 (4.00-5.60); RDW 13.9 % (11.9-15.9); WHITE BLOOD COUNT 11.1 K/mm3 (4.0-10.0)
[2023-09-07 10:42] LABS: POTASSIUM 4.5 mmol/L (3.5-5.1)
[2023-09-07 10:47] LABS: CALCIUM 8.9 mg/dL (8.5-10.1)
[2023-09-07 10:48] LABS: ALBUMIN 2.9 g/dl (3.4-5.0); BLOOD UREA NITROGEN 28.4 mg/dL (7-18); MAGNESIUM 2.4 mg/dL (1.8-2.4)
[2023-09-07 10:51] LABS: CREATININE 1.2 mg/dL (0.55-1.3); PHOSPHOROUS 4.1 mg/dL (2.5-4.9)
[2023-09-07 10:52] LABS: BILIRUBIN,TOTAL 0.4 mg/dL (0.2-1); TOT PROT 8.2 g/dl (6.4-8.2)
[2023-09-08 09:06] LABS: BASO % 0.3 % (0-2.0); EOS % 1.3 % (0-4.5); HEMATOCRIT 30.3 % (35.4-49); HEMOGLOBIN 10.2 GM/dL (11.7-16.9); LYMPH % 10.8 % (8-40); MCH 27.8 pg (25.7-33.7); MCHC 33.6 g/dl (32.0-35.9); MEAN CELL VOLUME 82.6 fl (80-96); MEAN PLT VOLUME 6.9 fl (7.5-11.1); MONO % 9.7 % (3.8-10.2); NEUT % 77.9 % (42.8-82.8); PLATELET COUNT 550 10^3/uL (134-434); RBC 3.66 M/mm3 (4.00-5.60); RDW 13.9 % (11.9-15.9); WHITE BLOOD COUNT 11.7 K/mm3 (4.0-10.0)
[2023-09-08 09:34] LABS: POTASSIUM 4.5 mmol/L (3.5-5.1)
[2023-09-08 09:58] LABS: BLOOD UREA NITROGEN 23.6 mg/dL (7-18); PHOSPHOROUS 3.7 mg/dL (2.5-4.9)
[2023-09-08 09:59] LABS: ALBUMIN 2.5 g/dl (3.4-5.0); CALCIUM 8.5 mg/dL (8.5-10.1); MAGNESIUM 2.7 mg/dL (1.8-2.4); TOT PROT 7.5 g/dl (6.4-8.2)
[2023-09-08 10:01] LABS: CREATININE 1.1 mg/dL (0.55-1.3)
[2023-09-08 10:05] LABS: BILIRUBIN,TOTAL 0.4 mg/dL (0.2-1)
[2023-09-09] MEDS ORDERED: methaDONE HCL 10 MG TABLET PO SCH (06:00)
[2023-09-09] MEDS: methaDONE 40 MG, methaDONE 30 MG PO SCH (08:03)
[2023-09-10] MEDS: ACETAMINOPHEN 1000 MG/100 ML BAG IVPB ONE (01:05)
[2023-09-10 08:29] LABS: BASO % 0.4 % (0-2.0); HEMATOCRIT 30.7 % (35.4-49); HEMOGLOBIN 10.4 GM/dL (11.7-16.9); LYMPH % 9.7 % (8-40); MCH 28.2 pg (25.7-33.7); MCHC 33.8 g/dl (32.0-35.9); MEAN CELL VOLUME 83.5 fl (80-96); MEAN PLT VOLUME 7.1 fl (7.5-11.1); MONO % 9.8 % (3.8-10.2); NEUT % 79.1 % (42.8-82.8); PLATELET COUNT 559 10^3/uL (134-434); RBC 3.68 M/mm3 (4.00-5.60); RDW 13.9 % (11.9-15.9); WHITE BLOOD COUNT 15.9 K/mm3 (4.0-10.0)
[2023-09-10 09:06] LABS: POTASSIUM 4.7 mmol/L (3.5-5.1)
[2023-09-10 09:11] LABS: ALBUMIN 2.7 g/dl (3.4-5.0); BLOOD UREA NITROGEN 23.5 mg/dL (7-18); CALCIUM 9.4 mg/dL (8.5-10.1)
[2023-09-10 09:14] LABS: CREATININE 1.2 mg/dL (0.55-1.3)
[2023-09-10 09:16] LABS: BILIRUBIN,TOTAL 0.3 mg/dL (0.2-1); TOT PROT 8.2 g/dl (6.4-8.2)
[2023-09-10] MEDS ORDERED: METOCLOPRAMIDE HCL INJECTION 10 MG/2 ML VIAL IVPUSH PRN (12:44)
[2023-09-10] MEDS: TRIMETHOBENZAMIDE HCL 200MG/2ML INJ IM PRN (12:49)
[2023-09-10] MEDS ORDERED: POLYETHYLENE GLYCOL (HEALTHYLAX) 3350 17 GM PACKET PO PRN (13:32)
[2023-09-10] MEDS: SENNOSIDES/DOCUSATE COMBO (SENNA PLUS) TABLET (UD) PO SCH (17:44)
[2023-09-11] MEDS: ACETAMINOPHEN 1000 MG/100 ML BAG IVPB PRN (03:05)
[2023-09-11] MEDS ORDERED: MIDAZOLAM HCL 2 MG/2 ML SINGLE DOSE VIAL ONE (09:15)
[2023-09-11 10:07] LABS: BASO % 0.6 % (0-2.0); EOS % 0.9 % (0-4.5); HEMATOCRIT 29.8 % (35.4-49); LYMPH % 10.1 % (8-40); MCH 27.8 pg (25.7-33.7); MCHC 33.4 g/dl (32.0-35.9); MEAN CELL VOLUME 83.2 fl (80-96); MEAN PLT VOLUME 7.1 fl (7.5-11.1); MONO % 9.5 % (3.8-10.2); NEUT % 78.9 % (42.8-82.8); PLATELET COUNT 573 10^3/uL (134-434); RBC 3.58 M/mm3 (4.00-5.60); RDW 13.8 % (11.9-15.9); WHITE BLOOD COUNT 14.3 K/mm3 (4.0-10.0)
[2023-09-11] MEDS: FENTANYL CITRATE/PF 50 MCG/ML VIAL IVPUSH ONE ×2 (10:10→10:15)
[2023-09-11 10:22] LABS: POTASSIUM 4.4 mmol/L (3.5-5.1)
[2023-09-11 10:29] LABS: CALCIUM 9.6 mg/dL (8.5-10.1)
[2023-09-11 10:30] LABS: ALBUMIN 2.7 g/dl (3.4-5.0); BLOOD UREA NITROGEN 18.8 mg/dL (7-18); MAGNESIUM 2.6 mg/dL (1.8-2.4)
[2023-09-11 10:34] LABS: BILIRUBIN,TOTAL 0.3 mg/dL (0.2-1); TOT PROT 8.3 g/dl (6.4-8.2)
[2023-09-11] MEDS: morphine SULFATE 4 MG/ML VIAL IVPUSH PRN (12:56)
[2023-09-12 09:57] LABS: EOS % 3.6 % (0-4.5); HEMATOCRIT 28.9 % (35.4-49); HEMOGLOBIN 9.6 GM/dL (11.7-16.9); LYMPH % 24.3 % (8-40); MCH 27.4 pg (25.7-33.7); MCHC 33.1 g/dl (32.0-35.9); MEAN CELL VOLUME 82.7 fl (80-96); MEAN PLT VOLUME 7.3 fl (7.5-11.1); MONO % 11.2 % (3.8-10.2); NEUT % 59.9 % (42.8-82.8); PLATELET COUNT 474 10^3/uL (134-434); WHITE BLOOD COUNT 5.7 K/mm3 (4.0-10.0)
[2023-09-12 10:08] LABS: POTASSIUM 4.6 mmol/L (3.5-5.1)
[2023-09-12 10:16] LABS: ALBUMIN 2.4 g/dl (3.4-5.0); BLOOD UREA NITROGEN 20.5 mg/dL (7-18); CALCIUM 9.1 mg/dL (8.5-10.1); MAGNESIUM 2.6 mg/dL (1.8-2.4)
[2023-09-12 10:20] LABS: BILIRUBIN,TOTAL 0.2 mg/dL (0.2-1); TOT PROT 7.6 g/dl (6.4-8.2)
[2023-09-12] MEDS: oxyCODONE HCL 5 MG TABLET PO ONE (14:37)
[2023-09-12] MEDS: BISACODYL 5 MG TABLET.DR (FP) PO ONE (14:39)
[2023-09-12] MEDS: KETOROLAC TROMETHAMINE 30 MG/1 ML VIAL IM ONE (17:41)
[2023-09-13 10:14] LABS: BASO % 1.2 % (0-2.0); EOS % 4.3 % (0-4.5); HEMATOCRIT 31.4 % (35.4-49); HEMOGLOBIN 10.3 GM/dL (11.7-16.9); MCH 27.6 pg (25.7-33.7); MEAN CELL VOLUME 83.5 fl (80-96); MONO % 9.5 % (3.8-10.2); PLATELET COUNT 567 10^3/uL (134-434); RBC 3.75 M/mm3 (4.00-5.60); WHITE BLOOD COUNT 6.5 K/mm3 (4.0-10.0)
[2023-09-13 10:21] LABS: POTASSIUM 4.5 mmol/L (3.5-5.1)
[2023-09-13 10:27] LABS: ALBUMIN 2.6 g/dl (3.4-5.0); CALCIUM 9.4 mg/dL (8.5-10.1)
[2023-09-13 10:28] LABS: BLOOD UREA NITROGEN 19.9 mg/dL (7-18); MAGNESIUM 2.7 mg/dL (1.8-2.4)
[2023-09-13 10:31] LABS: BILIRUBIN,TOTAL 0.2 mg/dL (0.2-1); CREATININE 1.1 mg/dL (0.55-1.3)
[2023-09-13 10:32] LABS: TOT PROT 8.1 g/dl (6.4-8.2)
[2023-09-13] MEDS: VANCOMYCIN/WATER 1250 MG 1,250 MG/250 ML BAG IVPB SCH (11:47)
[2023-09-13] MEDS: morphine SULFATE 4 MG/ML VIAL IVPUSH PRN (15:24)
[2023-09-13] MEDS ORDERED: KETOROLAC TROMETHAMINE 15 MG/ML VIAL IVPUSH ONE (18:22)
[2023-09-13] MEDS: KETOROLAC TROMETHAMINE 15 MG/ML VIAL IVPUSH ONE (21:00)
[2023-09-14 10:06] LABS: BASO % 1.9 % (0-2.0); EOS % 3.9 % (0-4.5); HEMATOCRIT 29.8 % (35.4-49); HEMOGLOBIN 9.9 GM/dL (11.7-16.9); MCH 27.6 pg (25.7-33.7); MCHC 33.2 g/dl (32.0-35.9); MEAN CELL VOLUME 83.1 fl (80-96); MONO % 7.8 % (3.8-10.2); NEUT % 59.4 % (42.8-82.8); PLATELET COUNT 548 10^3/uL (134-434); RBC 3.58 M/mm3 (4.00-5.60); WHITE BLOOD COUNT 5.7 K/mm3 (4.0-10.0)
[2023-09-14 10:37] LABS: POTASSIUM 4.5 mmol/L (3.5-5.1)
[2023-09-14 11:12] LABS: ALBUMIN 2.6 g/dl (3.4-5.0); BLOOD UREA NITROGEN 23.6 mg/dL (7-18); CALCIUM 9.1 mg/dL (8.5-10.1); MAGNESIUM 2.3 mg/dL (1.8-2.4)
[2023-09-14 11:15] LABS: CREATININE 1.1 mg/dL (0.55-1.3)
[2023-09-14 11:16] LABS: BILIRUBIN,TOTAL 0.2 mg/dL (0.2-1)
[2023-09-14] MEDS: VANCOMYCIN/WATER 1250 MG 1,250 MG/250 ML BAG IVPB SCH ×2 (13:44→22:09)
[2023-09-14] MEDS: ACETAMINOPHEN 500 MG TABLET (FP) PO SCH (15:12)
[2023-09-15 10:29] LABS: BASO % 2.2 % (0-2.0); EOS % 3.9 % (0-4.5); HEMATOCRIT 30.9 % (35.4-49); HEMOGLOBIN 10.2 GM/dL (11.7-16.9); LYMPH % 25.2 % (8-40); MCH 27.3 pg (25.7-33.7); MCHC 33.1 g/dl (32.0-35.9); MEAN CELL VOLUME 82.4 fl (80-96); MEAN PLT VOLUME 6.8 fl (7.5-11.1); MONO % 8.5 % (3.8-10.2); NEUT % 60.2 % (42.8-82.8); RBC 3.75 M/mm3 (4.00-5.60); RDW 13.9 % (11.9-15.9); WHITE BLOOD COUNT 5.4 K/mm3 (4.0-10.0)
[2023-09-15 10:42] LABS: POTASSIUM 4.3 mmol/L (3.5-5.1)
[2023-09-15 10:49] LABS: ALBUMIN 2.6 g/dl (3.4-5.0); BLOOD UREA NITROGEN 20.5 mg/dL (7-18); CALCIUM 9.3 mg/dL (8.5-10.1)
[2023-09-15 10:54] LABS: BILIRUBIN,TOTAL 0.2 mg/dL (0.2-1)
[2023-09-15 11:53] LABS: PLATELET COUNT 478 10^3/uL (134-434)
[2023-09-16] MEDS: methaDONE HCL 40 MG DISPERSABLE TABLET PO SCH (06:25)
[2023-09-16 10:46] LABS: CALCIUM 9.3 mg/dL (8.5-10.1)
[2023-09-16 10:47] LABS: ALBUMIN 2.7 g/dl (3.4-5.0); BLOOD UREA NITROGEN 18.4 mg/dL (7-18); MAGNESIUM 2.1 mg/dL (1.8-2.4)
[2023-09-16 10:49] LABS: PHOSPHOROUS 3.5 mg/dL (2.5-4.9)
[2023-09-16 10:51] LABS: BILIRUBIN,TOTAL 0.2 mg/dL (0.2-1)
[2023-09-16 10:52] LABS: EOS % 3.6 % (0-4.5); HEMATOCRIT 32.7 % (35.4-49); HEMOGLOBIN 10.9 GM/dL (11.7-16.9); LYMPH % 22.7 % (8-40); MCH 27.5 pg (25.7-33.7); MCHC 33.4 g/dl (32.0-35.9); MEAN CELL VOLUME 82.4 fl (80-96); MEAN PLT VOLUME 6.9 fl (7.5-11.1); MONO % 10.7 % (3.8-10.2); PLATELET COUNT 451 10^3/uL (134-434); RBC 3.97 M/mm3 (4.00-5.60); RDW 14.2 % (11.9-15.9)
[2023-09-16] MEDS: ACETAMINOPHEN 325 MG TABLET (FP) PO SCH (19:56)
[2023-09-16] MEDS: SENNOSIDES/DOCUSATE COMBO (SENNA PLUS) TABLET (UD) PO SCH (21:14)
[2023-09-17] MEDS: methaDONE HCL 40 MG DISPERSABLE TABLET PO SCH (06:17)
[2023-09-18 11:37] LABS: HEMATOCRIT 32.5 % (35.4-49); HEMOGLOBIN 10.6 GM/dL (11.7-16.9); MCH 27.2 pg (25.7-33.7); MCHC 32.7 g/dl (32.0-35.9); MEAN CELL VOLUME 83.2 fl (80-96); MEAN PLT VOLUME 7.2 fl (7.5-11.1); PLATELET COUNT 389 10^3/uL (134-434); RBC 3.91 M/mm3 (4.00-5.60); RDW 14.5 % (11.9-15.9)
[2023-09-18 11:44] LABS: POTASSIUM 4.1 mmol/L (3.5-5.1)
[2023-09-18 11:51] LABS: BLOOD UREA NITROGEN 17.2 mg/dL (7-18); CALCIUM 9.5 mg/dL (8.5-10.1)
[2023-09-18 11:54] LABS: CREATININE 1.1 mg/dL (0.55-1.3)
[2023-09-18 11:55] LABS: BILIRUBIN,TOTAL 0.2 mg/dL (0.2-1)
[2023-09-19 10:38] LABS: HEMATOCRIT 32.8 % (35.4-49); HEMOGLOBIN 11.2 GM/dL (11.7-16.9); MCH 27.9 pg (25.7-33.7); MCHC 34.1 g/dl (32.0-35.9); MEAN CELL VOLUME 81.9 fl (80-96); MEAN PLT VOLUME 7.2 fl (7.5-11.1); PLATELET COUNT 332 10^3/uL (134-434); RBC 4.01 M/mm3 (4.00-5.60); RDW 14.7 % (11.9-15.9); WHITE BLOOD COUNT 4.8 K/mm3 (4.0-10.0)
[2023-09-19 10:54] LABS: POTASSIUM 4.1 mmol/L (3.5-5.1)
[2023-09-19 11:05] LABS: BLOOD UREA NITROGEN 17.6 mg/dL (7-18)
[2023-09-19 11:06] LABS: CALCIUM 9.7 mg/dL (8.5-10.1)
[2023-09-19 11:13] LABS: BILIRUBIN,TOTAL 0.2 mg/dL (0.2-1)
[2023-09-20] MEDS: methaDONE HCL 40 MG DISPERSABLE TABLET PO ONE (07:58)
[2023-09-20 09:20] LABS: BASO % 1.2 % (0-2.0); EOS % 5.3 % (0-4.5); HEMATOCRIT 34.7 % (35.4-49); HEMOGLOBIN 11.4 GM/dL (11.7-16.9); LYMPH % 32.3 % (8-40); MCH 27.4 pg (25.7-33.7); MCHC 32.9 g/dl (32.0-35.9); MEAN CELL VOLUME 83.2 fl (80-96); MEAN PLT VOLUME 7.9 fl (7.5-11.1); MONO % 9.5 % (3.8-10.2); NEUT % 51.7 % (42.8-82.8); PLATELET COUNT 307 10^3/uL (134-434); RBC 4.17 M/mm3 (4.00-5.60); RDW 14.6 % (11.9-15.9); WHITE BLOOD COUNT 5.2 K/mm3 (4.0-10.0)
[2023-09-20 09:41] LABS: POTASSIUM 4.7 mmol/L (3.5-5.1)
[2023-09-20 10:06] LABS: ALBUMIN 3.2 g/dl (3.4-5.0)
[2023-09-20 10:08] LABS: CALCIUM 9.4 mg/dL (8.5-10.1)
[2023-09-20 10:09] LABS: BLOOD UREA NITROGEN 18.4 mg/dL (7-18)
[2023-09-20 10:10] LABS: CREATININE 0.9 mg/dL (0.55-1.3)
[2023-09-20 10:12] LABS: TOT PROT 8.3 g/dl (6.4-8.2)
[2023-09-20 10:13] LABS: BILIRUBIN,TOTAL 0.4 mg/dL (0.2-1)
[2023-09-20] MEDS ORDERED: PROCHLORPERAZINE INJECTION 10 MG/2 ML VIAL IVPB PRN (11:29)
[2023-09-20 14:48] VITALS: RESP 18
[2023-09-20] MEDS: DOXYCYCLINE HYCLATE 100 MG CAPSULE PO SCH (15:10)
[2023-09-21 10:49] LABS: HEMOGLOBIN 10.5 GM/dL (11.7-16.9); MCH 27.7 pg (25.7-33.7); MCHC 33.8 g/dl (32.0-35.9); MEAN PLT VOLUME 7.5 fl (7.5-11.1); PLATELET COUNT 277 10^3/uL (134-434); RBC 3.79 M/mm3 (4.00-5.60); RDW 14.8 % (11.9-15.9); WHITE BLOOD COUNT 5.3 K/mm3 (4.0-10.0)
[2023-09-21 11:08] LABS: POTASSIUM 4.1 mmol/L (3.5-5.1)
[2023-09-21 11:13] LABS: CALCIUM 9.3 mg/dL (8.5-10.1)
[2023-09-21 11:14] LABS: ALBUMIN 2.8 g/dl (3.4-5.0); BLOOD UREA NITROGEN 17.8 mg/dL (7-18)
[2023-09-21 11:17] LABS: CREATININE 0.9 mg/dL (0.55-1.3); PHOSPHOROUS 3.3 mg/dL (2.5-4.9)
[2023-09-21 11:18] LABS: BILIRUBIN,TOTAL 0.2 mg/dL (0.2-1)
[2023-09-21 11:19] LABS: TOT PROT 7.4 g/dl (6.4-8.2)
[2023-09-22 09:18] LABS: HEMATOCRIT 31.5 % (35.4-49); HEMOGLOBIN 10.8 GM/dL (11.7-16.9); MCHC 34.2 g/dl (32.0-35.9); MEAN CELL VOLUME 81.8 fl (80-96); MEAN PLT VOLUME 7.7 fl (7.5-11.1); PLATELET COUNT 288 10^3/uL (134-434); RBC 3.85 M/mm3 (4.00-5.60); RDW 14.8 % (11.9-15.9); WHITE BLOOD COUNT 6.8 K/mm3 (4.0-10.0)
[2023-09-22 10:04] LABS: POTASSIUM 4.1 mmol/L (3.5-5.1)
[2023-09-22 10:10] LABS: BLOOD UREA NITROGEN 24.2 mg/dL (7-18); CALCIUM 9.7 mg/dL (8.5-10.1)
[2023-09-22 10:13] LABS: CREATININE 1.2 mg/dL (0.55-1.3)
[2023-09-22 10:15] LABS: BILIRUBIN,TOTAL 0.3 mg/dL (0.2-1); TOT PROT 7.9 g/dl (6.4-8.2)
[2023-09-22] MEDS: POLYETHYLENE GLYCOL (HEALTHYLAX) 3350 17 GM PACKET PO SCH (21:59)
[2023-09-22] MEDS: ACETAMINOPHEN 1000 MG/100 ML BAG IVPB PRN (22:21)
[2023-09-23 09:27] LABS: EOS % 5.2 % (0-4.5); HEMATOCRIT 31.5 % (35.4-49); HEMOGLOBIN 10.7 GM/dL (11.7-16.9); LYMPH % 27.4 % (8-40); MCHC 34.1 g/dl (32.0-35.9); MEAN CELL VOLUME 82.2 fl (80-96); MONO % 5.7 % (3.8-10.2); NEUT % 60.7 % (42.8-82.8); PLATELET COUNT 271 10^3/uL (134-434); RBC 3.83 M/mm3 (4.00-5.60); RDW 15.1 % (11.9-15.9); WHITE BLOOD COUNT 6.2 K/mm3 (4.0-10.0)
[2023-09-23 10:20] LABS: ALBUMIN 2.9 g/dl (3.4-5.0); BLOOD UREA NITROGEN 25.2 mg/dL (7-18); CALCIUM 9.6 mg/dL (8.5-10.1)
[2023-09-23 10:23] LABS: CREATININE 1.1 mg/dL (0.55-1.3); PHOSPHOROUS 3.7 mg/dL (2.5-4.9)
[2023-09-23 10:24] LABS: BILIRUBIN,TOTAL 0.2 mg/dL (0.2-1); TOT PROT 7.6 g/dl (6.4-8.2)
[2023-09-24 11:11] LABS: HEMATOCRIT 30.7 % (35.4-49); HEMOGLOBIN 10.6 GM/dL (11.7-16.9); MCH 28.4 pg (25.7-33.7); MCHC 34.6 g/dl (32.0-35.9); MEAN PLT VOLUME 8.1 fl (7.5-11.1); PLATELET COUNT 257 10^3/uL (134-434); RBC 3.75 M/mm3 (4.00-5.60); RDW 15.2 % (11.9-15.9); WHITE BLOOD COUNT 6.8 K/mm3 (4.0-10.0)
[2023-09-24 11:40] LABS: POTASSIUM 4.2 mmol/L (3.5-5.1)
[2023-09-24 11:48] LABS: CALCIUM 9.3 mg/dL (8.5-10.1)
[2023-09-24 11:51] LABS: CREATININE 1.1 mg/dL (0.55-1.3)
[2023-09-24] MEDS ORDERED: MELATONIN 5 MG TABLETS PO PRN (21:42)
[2023-09-24] MEDS: ACETAMINOPHEN 1000 MG/100 ML BAG IVPB ONE (23:45)
[2023-09-25 09:37] LABS: HEMATOCRIT 32.1 % (35.4-49); HEMOGLOBIN 11.3 GM/dL (11.7-16.9); MCH 28.6 pg (25.7-33.7); MCHC 35.1 g/dl (32.0-35.9); MEAN CELL VOLUME 81.5 fl (80-96); MEAN PLT VOLUME 8.3 fl (7.5-11.1); PLATELET COUNT 263 10^3/uL (134-434); RBC 3.94 M/mm3 (4.00-5.60); RDW 15.5 % (11.9-15.9); WHITE BLOOD COUNT 7.3 K/mm3 (4.0-10.0)
[2023-09-25 10:02] LABS: POTASSIUM 4.2 mmol/L (3.5-5.1)
[2023-09-25 10:11] LABS: CALCIUM 9.7 mg/dL (8.5-10.1)
[2023-09-25 10:12] LABS: ALBUMIN 3.3 g/dl (3.4-5.0)
[2023-09-25] MEDS: DOXYCYCLINE HYCLATE 100 MG CAPSULE PO SCH (10:13)
[2023-09-25 10:16] LABS: BILIRUBIN,TOTAL 0.3 mg/dL (0.2-1); CREATININE 1.1 mg/dL (0.55-1.3)
[2023-09-25 10:17] LABS: TOT PROT 8.2 g/dl (6.4-8.2)
[2023-09-26] MEDS: KETOROLAC TROMETHAMINE 15 MG/ML VIAL IVPUSH PRN (03:26)
[2023-09-26 11:06] VITALS: BP 113/78; PULSE 71; TEMP 97.8
== END 2023-09-26 12:44 | disposition home or self-care (01) | DRG 263 ==
LOC: JER 03:20 → JERBED 06:20 → INTOOBSV 06:20 → UNDOADMOB 06:20 → JERBED 09:08 → J6S 18:41 → OBSVTOIN 08-31 10:26 → J6S 09-05 13:18
PROVIDERS: ADMIT Internal Medicine; ATTEND Internal Medicine
PROC: 0FT44ZZ Resection of Gallbladder, Percutaneous Endoscopic Approach (ICD-10-PCS; principal; 2023-08-31 09:30)
PROC: 0W9F0ZZ Drainage of Abdominal Wall, Open Approach (ICD-10-PCS; 2023-09-07)
PROC: 0W9G30Z Drainage of Peritoneal Cavity with Drainage Device, Percutaneous Approach (ICD-10-PCS; 2023-09-11)
DX: K80.00 Calculus of gallbladder with acute cholecystitis without obstruction (principal); K82.A1 Gangrene of gallbladder in cholecystitis; F11.20 Opioid dependence, uncomplicated; D72.829 Elevated white blood cell count, unspecified; F17.210 Nicotine dependence, cigarettes, uncomplicated; D63.8 Anemia in other chronic diseases classified elsewhere; E78.5 Hyperlipidemia, unspecified; G43.909 Migraine, unspecified, not intractable, without status migrainosus; L03.311 Cellulitis of abdominal wall; F14.20 Cocaine dependence, uncomplicated; B95.62 Methicillin resistant Staphylococcus aureus infection as the cause of diseases classified elsewhere; J45.22 Mild intermittent asthma with status asthmaticus; M54.50 Low back pain, unspecified; I10 Essential (primary) hypertension; J38.7 Other diseases of larynx; K21.9 Gastro-esophageal reflux disease without esophagitis; K66.0 Peritoneal adhesions (postprocedural) (postinfection); R91.8 Other nonspecific abnormal finding of lung field; R50.9 Fever, unspecified; T81.42XA Infection following a procedure, deep incisional surgical site, initial encounter; Y83.8 Other surgical procedures as the cause of abnormal reaction of the patient, or of later complication, without mention of misadventure at the time of the procedure; K65.1 Peritoneal abscess; N43.3 Hydrocele, unspecified; R00.1 Bradycardia, unspecified; D75.839 Thrombocytosis, unspecified; Z59.00 Homelessness unspecified
CPT/HCPCS: 0241U-QW; 36415; 49406; 71045-TC-FY; 71250-TC; 74018-TC-FY; 74177-TC; 76705-TC; 80048; 80053; 82728; 83540; 83550; 83605; 83735; 84100; 84484; 85025; 85027; 85045; 85610; 85730; 86140; 86850; 86900; 86901; 87040; 87070; 87075; 87081; 87102; 87116; 87186; 87205; 87206; 87210; 87635; 87899; 88304-TC; 93005; 93010; 94010; 94760; 99285-25; G0378; G0463; G0480; J0131; Q9967

== ENCOUNTER 2023-09-28 21:05 | Emergency (ER) | payer OTHER ==
[2023-09-28 21:16] VITALS: TEMP 98; BMI 27.1
[2023-09-28] MEDS: NALOXONE HCL 0.4 MG/ML VIAL IM ONE (22:42)
[2023-09-29 06:41] VITALS: BP 110/74; PULSE 81; RESP 17
== END 2023-09-29 06:42 | disposition home or self-care (01) ==
LOC: JER 21:05
DX: R10.11 Right upper quadrant pain (principal); R11.10 Vomiting, unspecified; F11.90 Opioid use, unspecified, uncomplicated
CPT/HCPCS: 99282-25

== ENCOUNTER 2023-10-01 13:11 | Inpatient (IN) | payer OTHER ==
[2023-10-01 13:55] VITALS: BMI 23.0
[2023-10-01] MEDS ORDERED: NALOXONE HCL (KLOXXADO) 8 MG SPRAY NS PRN (14:45)
[2023-10-01] MEDS ORDERED: LOPERAMIDE HCL 2 MG CAPSULE PO PRN (14:45)
[2023-10-01] MEDS ORDERED: BENZOCAINE/MENTHOL (CHLORASEPTIC ) LOZENGE MM PRN (14:45)
[2023-10-01] MEDS ORDERED: hydrOXYzine PAMOATE 25 MG CAPSULE (FP) PO PRN (14:45)
[2023-10-01] MEDS ORDERED: MAGNESIUM HYDROX 2400MG/30ML ORAL SUSPENSION 30 ML CUP PO PRN (14:45)
[2023-10-01] MEDS ORDERED: MAG HYDROX/AL HYDROX/SIMETH 30 ML UNIT-DOSE CUP PO PRN (14:45)
[2023-10-01] MEDS ORDERED: guaiFENesin 600 MG TABLET.ER (FP) PO PRN (14:45)
[2023-10-01] MEDS ORDERED: NALOXONE HCL 0.4 MG/ML VIAL IM PRN (14:45)
[2023-10-01] MEDS ORDERED: BENZONATATE 200 MG CAPSULE PO PRN (14:45)
[2023-10-01] MEDS ORDERED: POLYETHYLENE GLYCOL (HEALTHYLAX) 3350 17 GM PACKET PO PRN (14:45)
[2023-10-01] MEDS: IBUPROFEN 600 MG TABLET (FP) PO PRN (15:15)
[2023-10-01] MEDS ORDERED: IBUPROFEN 600 MG TABLET (FP) PO ONE (15:54)
[2023-10-01] MEDS: NICOTINE 21 MG/24 HOURS TOPICAL PATCH TD SCH (16:35)
[2023-10-01] MEDS: ACETAMINOPHEN 325 MG TABLET (FP) PO PRN (20:28)
[2023-10-01] MEDS: NICOTINE POLACRILEX 2 MG GUM BUC PRN (20:30)
[2023-10-01] MEDS: THIAMINE HCL 100 MG TABLET (FP) PO SCH (22:34)
[2023-10-01] MEDS: MELATONIN 5 MG TABLETS PO SCH (22:34)
[2023-10-02] MEDS: methaDONE 80 MG, methaDONE 10 MG PO SCH (06:27)
[2023-10-02] MEDS ORDERED: methaDONE HCL 10 MG TABLET (FOR DETOX USE ONLY) PO SCH (10:00)
[2023-10-02] MEDS: PRENATAL VITAMINS W/ FOLIC ACID TABLET (FP) PO SCH (10:13)
[2023-10-02 11:35] LABS: HEMATOCRIT 30.2 % (35.4-49); MCH 27.6 pg (25.7-33.7); MCHC 33.1 g/dl (32.0-35.9); MEAN CELL VOLUME 83.2 fl (80-96); MEAN PLT VOLUME 8.4 fl (7.5-11.1); PLATELET COUNT 185 10^3/uL (134-434); RBC 3.63 M/mm3 (4.00-5.60); RDW 15.9 % (11.9-15.9); WHITE BLOOD COUNT 4.5 K/mm3 (4.0-10.0)
[2023-10-02 11:36] LABS: CHLORIDE 107 mmol/L (98-107); SODIUM 139 mmol/L (136-145)
[2023-10-02 11:41] LABS: GLUCOSE,RANDOM 120 mg/dL (74-106)
[2023-10-02 11:42] LABS: ALBUMIN 3.3 g/dl (3.4-5.0); ANION GAP 4 mmol/L (4-13); BLOOD UREA NITROGEN 18.6 mg/dL (7-18); CO2 27 mmol/L (21-32)
[2023-10-02 11:43] LABS: SGPT/ALT 17 U/L (13-61)
[2023-10-02 11:45] LABS: BILIRUBIN,TOTAL 0.3 mg/dL (0.2-1); SGOT/AST 19 U/L (15-37); TOT PROT 7.1 g/dl (6.4-8.2)
[2023-10-02 11:46] LABS: ALK PHOS 114 U/L (45-117)
[2023-10-02 20:12] LABS: PH,URINE 5.5 (5.0-8.0); URINE APPEARANCE CLEAR; URINE BILIRUBIN NEGATIVE (NEGATIVE); URINE COLOR YELLOW; URINE GLUCOSE (UA) NEGATIVE (NEGATIVE); URINE KETONE NEGATIVE (NEGATIVE); URINE LEUK ESTERASE NEGATIVE (NEGATIVE); URINE NITRITE NEGATIVE (NEGATIVE); URINE PROTEIN NEGATIVE (NEGATIVE); URINE UROBILINOGEN 0.2 mg/dL (0.2-1.0)
[2023-10-02] MEDS: PANTOPRAZOLE 20 MG TABLET PO ONE (22:36)
[2023-10-03] MEDS: PANTOPRAZOLE 20 MG TABLET PO SCH ×2 (10:23→21:21)
[2023-10-03] MEDS: GABAPENTIN 100 MG CAPSULE PO SCH (15:53)
[2023-10-07] MEDS: IBUPROFEN 400 MG TABLET (FP) PO PRN (10:14)
[2023-10-08] MEDS ORDERED: methaDONE HCL 40 MG DISPERSABLE TABLET PO SCH (12:54)
[2023-10-08] MEDS ORDERED: AMMONIUM LACTATE 12% LOTION 225 GM BOTTLE TP PRN (12:54)
[2023-10-08] MEDS: GABAPENTIN 100 MG CAPSULE PO SCH (21:19)
[2023-10-11] MEDS: BACITRACIN 0.9 GM PACKET TP SCH (10:21)
[2023-10-12] MEDS: methaDONE HCL 40 MG DISPERSABLE TABLET PO SCH (06:01)
[2023-10-12] MEDS: DOXYCYCLINE HYCLATE 100 MG TABLET PO SCH ×2 (11:30→17:58)
[2023-10-24 06:54] VITALS: RESP 18
[2023-10-25 06:46] VITALS: TEMP 97.5
[2023-10-25 07:56] VITALS: BP 136/67; PULSE 65
== END 2023-10-25 09:50 | disposition home or self-care (01) | DRG 772 ==
LOC: YASAS 13:11 → Y3W 16:51
PROVIDERS: ADMIT Allergy & Immunology; ATTEND Psychiatry & Neurology Pain Medicine
PROC: HZ42ZZZ Group Counseling for Substance Abuse Treatment, Cognitive-Behavioral (ICD-10-PCS; principal; 2023-10-01)
DX: F11.20 Opioid dependence, uncomplicated (principal); F14.20 Cocaine dependence, uncomplicated; F17.210 Nicotine dependence, cigarettes, uncomplicated; F19.282 Other psychoactive substance dependence with psychoactive substance-induced sleep disorder; G62.9 Polyneuropathy, unspecified; E78.5 Hyperlipidemia, unspecified; I10 Essential (primary) hypertension; J44.89 Other specified chronic obstructive pulmonary disease; M54.50 Low back pain, unspecified; G89.29 Other chronic pain; Z86.19 Personal history of other infectious and parasitic diseases; Z99.89 Dependence on other enabling machines and devices; Z59.00 Homelessness unspecified
CPT/HCPCS: 36415; 80053; 80307; 81003; 85027; 87635; 93005; 93010

== ENCOUNTER 2023-12-31 21:23 | Inpatient (IN) | payer OTHER ==
[2023-12-31 22:10] VITALS: BMI 23.5
[2023-12-31] MEDS ORDERED: NALOXONE HCL 0.4 MG/ML VIAL IM PRN (23:24)
[2023-12-31] MEDS ORDERED: guaiFENesin 600 MG TABLET.ER (FP) PO PRN (23:24)
[2023-12-31] MEDS ORDERED: MAGNESIUM HYDROX 2400MG/30ML ORAL SUSPENSION 30 ML CUP PO PRN (23:24)
[2023-12-31] MEDS ORDERED: ACETAMINOPHEN 325 MG TABLET (FP) PO PRN (23:24)
[2023-12-31] MEDS ORDERED: NICOTINE POLACRILEX 2 MG GUM BUC PRN (23:24)
[2023-12-31] MEDS ORDERED: BENZOCAINE/MENTHOL (CHLORASEPTIC ) LOZENGE MM PRN (23:24)
[2023-12-31] MEDS ORDERED: NALOXONE HCL (KLOXXADO) 8 MG SPRAY NS PRN (23:24)
[2023-12-31] MEDS ORDERED: MAG HYDROX/AL HYDROX/SIMETH 30 ML UNIT-DOSE CUP PO PRN (23:24)
[2023-12-31] MEDS ORDERED: POLYETHYLENE GLYCOL (HEALTHYLAX) 3350 17 GM PACKET PO PRN (23:24)
[2023-12-31] MEDS ORDERED: P-EPHED 60MG/TRIPROLIDI 2.5MG TABLET PO PRN (23:24)
[2023-12-31] MEDS ORDERED: BENZONATATE 200 MG CAPSULE PO PRN (23:24)
[2023-12-31] MEDS ORDERED: DOCUSATE SODIUM 100 MG CAPSULE (FP) PO PRN (23:24)
[2023-12-31] MEDS ORDERED: LOPERAMIDE HCL 2 MG CAPSULE PO PRN (23:24)
[2023-12-31] MEDS ORDERED: IBUPROFEN 400 MG TABLET (FP) PO PRN (23:24)
[2024-01-01] MEDS: MELATONIN 5 MG TABLETS PO SCH (01:34)
[2024-01-01] MEDS: BACITRACIN ZINC 15 GM TUBE TOPICAL OINTMENT TP SCH (02:28)
[2024-01-01] MEDS: IBUPROFEN 600 MG TABLET (FP) PO PRN (06:56)
[2024-01-01] MEDS ORDERED: CEPHALEXIN MONOHYDRATE 500 MG CAPSULE (UD) PO SCH (10:00)
[2024-01-01] MEDS: methaDONE HCL 40 MG DISPERSABLE TABLET PO SCH (10:28)
[2024-01-01] MEDS: PRENATAL VITAMINS W/ FOLIC ACID TABLET (FP) PO SCH (10:28)
[2024-01-01] MEDS: SULFAMETHOXAZOLE/TRIMETHOPRIM 800MG/160MG D.S. TABLET PO SCH (10:28)
[2024-01-01 11:02] LABS: HEMATOCRIT 31.6 % (35.4-49); HEMOGLOBIN 10.8 GM/dL (11.7-16.9); MCH 27.7 pg (25.7-33.7); MCHC 34.1 g/dl (32.0-35.9); MEAN CELL VOLUME 81.2 fl (80-96); MEAN PLT VOLUME 7.8 fl (7.5-11.1); PLATELET COUNT 203 10^3/uL (134-434); RBC 3.89 M/mm3 (4.00-5.60); RDW 13.8 % (11.9-15.9); WHITE BLOOD COUNT 3.7 K/mm3 (4.0-10.0)
[2024-01-01 12:24] LABS: POTASSIUM 3.3 mmol/L (3.5-5.1)
[2024-01-01 12:31] LABS: CALCIUM 8.6 mg/dL (8.5-10.1)
[2024-01-01 12:35] LABS: CREATININE 0.8 mg/dL (0.55-1.3)
[2024-01-01 12:36] LABS: BILIRUBIN,TOTAL 0.6 mg/dL (0.2-1); TOT PROT 6.3 g/dl (6.4-8.2)
[2024-01-01] MEDS: THIAMINE 100 MG TABLET PO SCH (21:42)
[2024-01-02 06:42] VITALS: TEMP 98.6
[2024-01-02 08:55] VITALS: RESP 17
[2024-01-02 11:35] LABS: EPI CELLS 9 /uL (0-25.1); HYALINE CASTS 0 /uL (0-3.1); PH,URINE 7.5 (5.0-8.0); URINE APPEARANCE TURBID; URINE BACTERIA 3 /uL (0-1359); URINE BILIRUBIN 1+ (NEGATIVE); URINE COLOR DK YELLOW; URINE GLUCOSE (UA) NEGATIVE (NEGATIVE); URINE KETONE NEGATIVE (NEGATIVE); URINE LEUK ESTERASE TRACE (NEGATIVE); URINE NITRITE NEGATIVE (NEGATIVE); URINE PROTEIN NEGATIVE (NEGATIVE); URINE RBC 17 /uL (0-23.9); URINE WBC 2 /uL (0-25.8)
[2024-01-02] MEDS ORDERED: CALCIUM CARBONATE 650 MG TABLET PO PRN (14:02)
[2024-01-02] MEDS: LIDOCAINE 4% PATCH TP SCH (15:54)
[2024-01-02] MEDS: FAMOTIDINE 20 MG TABLET PO SCH (15:55)
[2024-01-02] MEDS: POTASSIUM CHLORIDE TABS 20 MEQ TABLET.ER (FP) PO SCH (15:55)
[2024-01-02 18:52] VITALS: BP 148/90; PULSE 70
[2024-01-02] MEDS ORDERED: LIDOCAINE PATCH REMOVAL MC SCH (22:00)
[2024-01-02] MEDS ORDERED: GABAPENTIN 100 MG CAPSULE PO SCH (22:00)
== END 2024-01-02 18:58 | disposition left against medical advice (07) | DRG 770 ==
LOC: YASAS 21:23 → Y3NR 01-01 01:53 → Y3W 01-01 17:53
PROVIDERS: ADMIT Allergy & Immunology; ATTEND Psychiatry & Neurology Pain Medicine
PROC: HZ42ZZZ Group Counseling for Substance Abuse Treatment, Cognitive-Behavioral (ICD-10-PCS; principal; 2024-01-01)
DX: F14.20 Cocaine dependence, uncomplicated (principal); F11.20 Opioid dependence, uncomplicated; F17.210 Nicotine dependence, cigarettes, uncomplicated; E87.6 Hypokalemia; G62.9 Polyneuropathy, unspecified; I10 Essential (primary) hypertension; J45.909 Unspecified asthma, uncomplicated; K21.9 Gastro-esophageal reflux disease without esophagitis; E78.5 Hyperlipidemia, unspecified; M54.50 Low back pain, unspecified; G89.29 Other chronic pain; B18.2 Chronic viral hepatitis C; L97.318 Non-pressure chronic ulcer of right ankle with other specified severity; L08.89 Other specified local infections of the skin and subcutaneous tissue; B95.62 Methicillin resistant Staphylococcus aureus infection as the cause of diseases classified elsewhere
CPT/HCPCS: 36415; 80053; 80305; 81003; 85027; 86780; 87070; 87186; 87205; 87811

== ENCOUNTER 2024-03-03 22:00 | Inpatient (IN) | payer OTHER ==
[2024-03-03 23:27] VITALS: BP 135/71; PULSE 50; RESP 16; TEMP 97.5; BMI 20.3
[2024-03-03] MEDS ORDERED: ACETAMINOPHEN 325 MG TABLET (FP) PO PRN (23:31)
[2024-03-03] MEDS ORDERED: POLYETHYLENE GLYCOL (HEALTHYLAX) 3350 17 GM PACKET PO PRN (23:31)
[2024-03-03] MEDS ORDERED: NICOTINE POLACRILEX 2 MG LOZENGE BC PRN (23:31)
[2024-03-03] MEDS ORDERED: LOPERAMIDE HCL 2 MG CAPSULE PO PRN (23:31)
[2024-03-03] MEDS ORDERED: BENZONATATE 200 MG CAPSULE PO PRN (23:31)
[2024-03-03] MEDS ORDERED: guaiFENesin 600 MG TABLET.ER (FP) PO PRN (23:31)
[2024-03-03] MEDS ORDERED: NICOTINE POLACRILEX 2 MG GUM BUC PRN (23:31)
[2024-03-03] MEDS ORDERED: MAG HYDROX/AL HYDROX/SIMETH 30 ML UNIT-DOSE CUP PO PRN (23:31)
[2024-03-03] MEDS ORDERED: MAGNESIUM HYDROX 2400MG/30ML ORAL SUSPENSION 30 ML CUP PO PRN (23:31)
[2024-03-03] MEDS ORDERED: BENZOCAINE/MENTHOL (CHLORASEPTIC ) LOZENGE MM PRN (23:31)
[2024-03-03] MEDS ORDERED: IBUPROFEN 600 MG TABLET (FP) PO PRN (23:31)
[2024-03-03] MEDS ORDERED: NALOXONE HCL 0.4 MG/ML VIAL IM PRN (23:31)
[2024-03-03] MEDS ORDERED: IBUPROFEN 400 MG TABLET (FP) PO PRN (23:31)
[2024-03-03] MEDS ORDERED: NALOXONE (NARCAN) HCL 4 MG/0.1 ML SPRAY NS PRN (23:31)
[2024-03-04] MEDS: PANTOPRAZOLE 20 MG TABLET PO SCH (00:22)
[2024-03-04] MEDS ORDERED: PRENATAL VITAMINS W/ FOLIC ACID TABLET (FP) PO SCH (10:00)
[2024-03-04] MEDS ORDERED: THIAMINE 100 MG TABLET PO SCH (22:00)
[2024-03-04] MEDS ORDERED: MELATONIN 5 MG TABLETS PO SCH (22:00)
== END 2024-03-04 01:46 | disposition left against medical advice (07) | DRG 770 ==
LOC: YASAS 22:00 → Y3W 23:56
PROVIDERS: ADMIT Allergy & Immunology; ATTEND Psychiatry & Neurology Pain Medicine
PROC: HZ42ZZZ Group Counseling for Substance Abuse Treatment, Cognitive-Behavioral (ICD-10-PCS; principal; 2024-03-03)
DX: F11.20 Opioid dependence, uncomplicated (principal); F14.20 Cocaine dependence, uncomplicated; F17.210 Nicotine dependence, cigarettes, uncomplicated; I10 Essential (primary) hypertension; K21.9 Gastro-esophageal reflux disease without esophagitis; M54.50 Low back pain, unspecified; G89.29 Other chronic pain; R29.6 Repeated falls; Z59.02 Unsheltered homelessness; Z88.0 Allergy status to penicillin
CPT/HCPCS: 80305; 93005; 93010

== ENCOUNTER 2024-03-12 16:55 | Inpatient (IN) | payer OTHER ==
[2024-03-12 19:05] LABS: BASO % 0.7 % (0-2.0); EOS % 1.4 % (0-4.5); HEMATOCRIT 29.3 % (35.4-49); LYMPH % 19.7 % (8-40); MCHC 34.2 g/dl (32.0-35.9); MEAN PLT VOLUME 7.1 fl (7.5-11.1); MONO % 13.4 % (3.8-10.2); NEUT % 64.8 % (42.8-82.8); PLATELET COUNT 287 10^3/uL (134-434); RBC 3.57 M/mm3 (4.00-5.60); RDW 14.9 % (11.9-15.9); WHITE BLOOD COUNT 6.2 K/mm3 (4.0-10.0)
[2024-03-12 19:06] LABS: VENOUS BASE EXCESS 2.2 mmol/L (-2-2); VENOUS O2 SATURATION 69.1 % (70-80); VENOUS PCO2 52.6 mmHg (38-52); VENOUS PH 7.352 (7.310-7.410)
[2024-03-12 19:10] LABS: INR 1.09 (0.83-1.09); PROTHROMBIN TIME (PATIENT) 12.5 SEC (9.7-13.0)
[2024-03-12 19:12] LABS: ACTIVATED PTT 33.7 SECONDS (25.2-36.5)
[2024-03-12 19:26] LABS: CHLORIDE 102 mmol/L (98-107); POTASSIUM 3.7 mmol/L (3.5-5.1); SODIUM 136 mmol/L (136-145)
[2024-03-12 19:28] LABS: CALCIUM 9.2 mg/dL (8.5-10.1)
[2024-03-12 19:29] LABS: ALBUMIN 3.2 g/dl (3.4-5.0); ANION GAP 5 mmol/L (4-13); BLOOD UREA NITROGEN 15.7 mg/dL (7-18); CO2 29 mmol/L (21-32); GLUCOSE,RANDOM 93 mg/dL (74-106)
[2024-03-12 19:32] LABS: CREATININE 0.8 mg/dL (0.55-1.3); SGOT/AST 22 U/L (15-37); SGPT/ALT 20 U/L (13-61)
[2024-03-12 19:34] LABS: BILIRUBIN,TOTAL 0.4 mg/dL (0.2-1); TOT PROT 7.2 g/dl (6.4-8.2)
[2024-03-12 19:35] LABS: ALK PHOS 155 U/L (45-117)
[2024-03-12] MEDS: LACTATED RINGERS SOLUTION 1000 ML INFUS.BAG IV ONE (19:35)
[2024-03-12 20:35] LABS: PH,URINE 6.5 (5.0-8.0); URINE APPEARANCE CLEAR; URINE BILIRUBIN NEGATIVE (NEGATIVE); URINE COLOR YELLOW; URINE GLUCOSE (UA) NEGATIVE (NEGATIVE); URINE KETONE NEGATIVE (NEGATIVE); URINE LEUK ESTERASE NEGATIVE (NEGATIVE); URINE NITRITE NEGATIVE (NEGATIVE); URINE PROTEIN NEGATIVE (NEGATIVE)
[2024-03-12 21:20] LABS: PHENCYCLIDINE,URINE NEGATIVE (NEGATIVE); URINE BENZODIAZEPINES NEGATIVE (NEGATIVE)
[2024-03-12 21:21] LABS: OPIATES, URI NEGATIVE (NEGATIVE); URINE AMPHETAMINES NEGATIVE (NEGATIVE); URINE BARBITURATES NEGATIVE (NEGATIVE)
[2024-03-12 21:25] LABS: COCAINE, UR POSITIVE (NEGATIVE); METHADONE, UR POSITIVE (NEGATIVE)
[2024-03-13] MEDS ORDERED: ACETAMINOPHEN 1000 MG/100 ML BAG IVPB PRN (00:59)
[2024-03-13] MEDS: REMDESIVIR 200 MG in SODIUM CHLORIDE 250 ML IVPB ONE ×2 (01:41→14:01)
[2024-03-13] MEDS ORDERED: methaDONE HCL 40 MG DISPERSABLE TABLET ONE (07:50)
[2024-03-13] MEDS: methaDONE HCL 10 MG TABLET PO ONE (07:50)
[2024-03-13 10:29] LABS: HEMATOCRIT 33.1 % (35.4-49); HEMOGLOBIN 11.2 GM/dL (11.7-16.9); MCH 27.5 pg (25.7-33.7); MCHC 33.9 g/dl (32.0-35.9); MEAN CELL VOLUME 81.1 fl (80-96); MEAN PLT VOLUME 6.9 fl (7.5-11.1); PLATELET COUNT 269 10^3/uL (134-434); RBC 4.08 M/mm3 (4.00-5.60); RDW 14.9 % (11.9-15.9); WHITE BLOOD COUNT 6.8 K/mm3 (4.0-10.0)
[2024-03-13 10:46] LABS: CALCIUM 8.7 mg/dL (8.5-10.1)
[2024-03-13 10:47] LABS: ALBUMIN 3.1 g/dl (3.4-5.0); BLOOD UREA NITROGEN 12.3 mg/dL (7-18)
[2024-03-13 10:50] LABS: CREATININE 0.7 mg/dL (0.55-1.3)
[2024-03-13 10:52] LABS: BILIRUBIN,TOTAL 0.8 mg/dL (0.2-1); TOT PROT 7.1 g/dl (6.4-8.2)
[2024-03-13] MEDS: ENOXAPARIN NA (PORCINE) 40 MG/0.4 ML DISP.SYRIN SQ SCH (14:02)
[2024-03-13] MEDS: LACTATED RINGERS SOLUTION 1,000 ML/1,000 ML INFUS.BAG IV SCH (18:48)
[2024-03-14] MEDS ORDERED: IBUPROFEN 800 MG/8 ML IJ IVPB ONE (02:27)
[2024-03-14] MEDS: IBUPROFEN 800 MG/8 ML IJ IVPB ONE (02:28)
[2024-03-14 08:18] LABS: BASO % 0.7 % (0-2.0); EOS % 1.4 % (0-4.5); HEMATOCRIT 26.8 % (35.4-49); HEMOGLOBIN 9.1 GM/dL (11.7-16.9); LYMPH % 18.5 % (8-40); MCH 27.9 pg (25.7-33.7); MCHC 33.8 g/dl (32.0-35.9); MEAN CELL VOLUME 82.5 fl (80-96); MEAN PLT VOLUME 7.7 fl (7.5-11.1); MONO % 10.4 % (3.8-10.2); PLATELET COUNT 222 10^3/uL (134-434); RBC 3.25 M/mm3 (4.00-5.60); RDW 14.8 % (11.9-15.9); WHITE BLOOD COUNT 5.5 K/mm3 (4.0-10.0)
[2024-03-14 08:31] LABS: POTASSIUM 4.1 mmol/L (3.5-5.1)
[2024-03-14 08:38] LABS: CALCIUM 8.4 mg/dL (8.5-10.1)
[2024-03-14 08:39] LABS: ALBUMIN 2.6 g/dl (3.4-5.0)
[2024-03-14 08:40] LABS: TOT PROT 5.9 g/dl (6.4-8.2)
[2024-03-14 08:44] LABS: BILIRUBIN,TOTAL 0.6 mg/dL (0.2-1); CREATININE 0.8 mg/dL (0.55-1.3)
[2024-03-14 08:45] LABS: BLOOD UREA NITROGEN 25.8 mg/dL (7-18)
[2024-03-14] MEDS: REMDESIVIR 100 MG in SODIUM CHLORIDE 250 ML IVPB SCH (11:22)
[2024-03-14] MEDS ORDERED: methaDONE HCL 40 MG DISPERSABLE TABLET PO ONE (11:55)
[2024-03-14] MEDS: CYANOCOBALAMIN (VITAMIN B-12) 1000 MCG/1 ML VIAL IM ONE (12:49)
[2024-03-14] MEDS: methaDONE HCL 40 MG DISPERSABLE TABLET PO ONE (15:27)
[2024-03-15] MEDS: IBUPROFEN 800 MG/8 ML IJ IVPB ONE (05:34)
[2024-03-15 08:09] LABS: BASO % 0.7 % (0-2.0); EOS % 2.4 % (0-4.5); HEMOGLOBIN 8.3 GM/dL (11.7-16.9); LYMPH % 21.3 % (8-40); MCH 28.2 pg (25.7-33.7); MCHC 34.4 g/dl (32.0-35.9); MEAN CELL VOLUME 81.8 fl (80-96); NEUT % 62.6 % (42.8-82.8); PLATELET COUNT 203 10^3/uL (134-434); RBC 2.93 M/mm3 (4.00-5.60); RDW 14.4 % (11.9-15.9); WHITE BLOOD COUNT 3.9 K/mm3 (4.0-10.0)
[2024-03-15] MEDS ORDERED: morphine CARPU-JECT 2 MG/1 ML DISP.SYRIN IVPUSH PRN (08:13)
[2024-03-15 08:43] LABS: POTASSIUM 4.1 mmol/L (3.5-5.1)
[2024-03-15 08:45] LABS: ALBUMIN 2.4 g/dl (3.4-5.0); BLOOD UREA NITROGEN 23.3 mg/dL (7-18); CALCIUM 8.3 mg/dL (8.5-10.1)
[2024-03-15 08:47] LABS: CREATININE 0.8 mg/dL (0.55-1.3)
[2024-03-15 08:50] LABS: BILIRUBIN,TOTAL 0.4 mg/dL (0.2-1); TOT PROT 5.8 g/dl (6.4-8.2)
[2024-03-15] MEDS: methaDONE HCL 40 MG DISPERSABLE TABLET PO SCH (11:15)
[2024-03-15 15:33] VITALS: BMI 19.6
[2024-03-15] MEDS: BISACODYL 5 MG TABLET.DR (FP) PO ONE (17:32)
[2024-03-16] MEDS: ACETAMINOPHEN 1000 MG/100 ML BAG IVPB PRN (02:31)
[2024-03-16 09:55] LABS: BASO % 1.3 % (0-2.0); HEMATOCRIT 25.6 % (35.4-49); HEMOGLOBIN 8.8 GM/dL (11.7-16.9); LYMPH % 23.6 % (8-40); MCH 27.9 pg (25.7-33.7); MCHC 34.4 g/dl (32.0-35.9); MEAN CELL VOLUME 81.2 fl (80-96); MEAN PLT VOLUME 7.3 fl (7.5-11.1); MONO % 12.8 % (3.8-10.2); NEUT % 57.3 % (42.8-82.8); PLATELET COUNT 226 10^3/uL (134-434); RBC 3.16 M/mm3 (4.00-5.60); RDW 14.8 % (11.9-15.9); WHITE BLOOD COUNT 3.7 K/mm3 (4.0-10.0)
[2024-03-16 10:10] LABS: POTASSIUM 4.4 mmol/L (3.5-5.1)
[2024-03-16 10:12] LABS: CALCIUM 8.3 mg/dL (8.5-10.1)
[2024-03-16 10:13] LABS: ALBUMIN 2.6 g/dl (3.4-5.0); BLOOD UREA NITROGEN 23.2 mg/dL (7-18)
[2024-03-16 10:15] LABS: CREATININE 0.8 mg/dL (0.55-1.3); PHOSPHOROUS 3.5 mg/dL (2.5-4.9)
[2024-03-16 10:17] LABS: TOT PROT 6.1 g/dl (6.4-8.2)
[2024-03-16 10:58] LABS: BILIRUBIN,TOTAL 0.4 mg/dL (0.2-1)
[2024-03-16] MEDS: IBUPROFEN 600 MG TABLET (FP) PO ONE (23:31)
[2024-03-17] MEDS ORDERED: ACETAMINOPHEN 1000 MG/100 ML BAG IVPB PRN (00:55)
[2024-03-17 09:47] LABS: HEMATOCRIT 27.2 % (35.4-49); HEMOGLOBIN 9.2 GM/dL (11.7-16.9); MCH 27.8 pg (25.7-33.7); MCHC 33.7 g/dl (32.0-35.9); MEAN CELL VOLUME 82.4 fl (80-96); MEAN PLT VOLUME 6.9 fl (7.5-11.1); PLATELET COUNT 232 10^3/uL (134-434); WHITE BLOOD COUNT 3.8 K/mm3 (4.0-10.0)
[2024-03-17 10:10] LABS: POTASSIUM 4.6 mmol/L (3.5-5.1)
[2024-03-17 10:13] LABS: ALBUMIN 2.7 g/dl (3.4-5.0); BLOOD UREA NITROGEN 24.8 mg/dL (7-18); CALCIUM 8.1 mg/dL (8.5-10.1); MAGNESIUM 2.1 mg/dL (1.8-2.4)
[2024-03-17 10:17] LABS: CREATININE 0.8 mg/dL (0.55-1.3); PHOSPHOROUS 3.3 mg/dL (2.5-4.9)
[2024-03-17 10:18] LABS: BILIRUBIN,TOTAL 0.4 mg/dL (0.2-1); TOT PROT 6.4 g/dl (6.4-8.2)
[2024-03-18 08:16] LABS: POTASSIUM 4.5 mmol/L (3.5-5.1)
[2024-03-18 08:22] LABS: BLOOD UREA NITROGEN 30.5 mg/dL (7-18); CALCIUM 8.1 mg/dL (8.5-10.1)
[2024-03-18 08:23] LABS: ALBUMIN 2.6 g/dl (3.4-5.0); HEMATOCRIT 26.3 % (35.4-49); MCH 28.3 pg (25.7-33.7); MEAN CELL VOLUME 83.1 fl (80-96); MEAN PLT VOLUME 7.6 fl (7.5-11.1); PLATELET COUNT 220 10^3/uL (134-434); RBC 3.17 M/mm3 (4.00-5.60); RDW 14.7 % (11.9-15.9); WHITE BLOOD COUNT 4.4 K/mm3 (4.0-10.0)
[2024-03-18 08:25] LABS: CREATININE 0.8 mg/dL (0.55-1.3)
[2024-03-18 08:27] LABS: BILIRUBIN,TOTAL 0.5 mg/dL (0.2-1); TOT PROT 6.2 g/dl (6.4-8.2)
[2024-03-19] MEDS: IBUPROFEN 600 MG TABLET (FP) PO PRN (04:32)
[2024-03-19 08:42] LABS: HEMATOCRIT 29.2 % (35.4-49); HEMOGLOBIN 9.9 GM/dL (11.7-16.9); MCH 27.9 pg (25.7-33.7); MEAN PLT VOLUME 7.3 fl (7.5-11.1); PLATELET COUNT 269 10^3/uL (134-434); RBC 3.56 M/mm3 (4.00-5.60); WHITE BLOOD COUNT 5.5 K/mm3 (4.0-10.0)
[2024-03-19 09:09] LABS: POTASSIUM 4.8 mmol/L (3.5-5.1)
[2024-03-19 09:21] LABS: BLOOD UREA NITROGEN 27.8 mg/dL (7-18); MAGNESIUM 2.5 mg/dL (1.8-2.4)
[2024-03-19 09:22] LABS: ALBUMIN 3.1 g/dl (3.4-5.0)
[2024-03-19 09:24] LABS: CREATININE 0.8 mg/dL (0.55-1.3); PHOSPHOROUS 3.3 mg/dL (2.5-4.9)
[2024-03-19 09:26] LABS: BILIRUBIN,TOTAL 0.4 mg/dL (0.2-1)
[2024-03-19 09:28] LABS: CALCIUM 9.5 mg/dL (8.5-10.1)
[2024-03-20 07:52] LABS: HEMATOCRIT 27.6 % (35.4-49); HEMOGLOBIN 9.4 GM/dL (11.7-16.9); MCH 28.1 pg (25.7-33.7); MCHC 33.9 g/dl (32.0-35.9); MEAN CELL VOLUME 82.8 fl (80-96); MEAN PLT VOLUME 7.3 fl (7.5-11.1); PLATELET COUNT 230 10^3/uL (134-434); RBC 3.34 M/mm3 (4.00-5.60); RDW 15.1 % (11.9-15.9); WHITE BLOOD COUNT 4.9 K/mm3 (4.0-10.0)
[2024-03-20 08:09] LABS: POTASSIUM 4.7 mmol/L (3.5-5.1)
[2024-03-20 08:14] LABS: BLOOD UREA NITROGEN 26.7 mg/dL (7-18); CALCIUM 8.8 mg/dL (8.5-10.1); MAGNESIUM 2.4 mg/dL (1.8-2.4)
[2024-03-20 08:15] LABS: ALBUMIN 2.8 g/dl (3.4-5.0)
[2024-03-20 08:17] LABS: PHOSPHOROUS 3.6 mg/dL (2.5-4.9)
[2024-03-20 08:18] LABS: CREATININE 0.8 mg/dL (0.55-1.3); TOT PROT 6.5 g/dl (6.4-8.2)
[2024-03-20 08:19] LABS: BILIRUBIN,TOTAL 0.3 mg/dL (0.2-1)
[2024-03-20] MEDS: ENOXAPARIN NA (PORCINE) 40 MG/0.4 ML DISP.SYRIN SQ SCH (16:46)
[2024-03-20] MEDS: NEOMYCIN/POLYMYXIN/BACITRACIN (TRIPLE ANTIBIOTIC) 28 GM OINTMENT TP PRN (21:12)
[2024-03-22] MEDS: CYANOCOBALAMIN (VITAMIN B-12) 1000 MCG/1 ML VIAL IM SCH (09:34)
[2024-03-22] MEDS: LIDOCAINE 5% TOPICAL PATCH TP ONE (20:00)
[2024-03-22] MEDS: ACETAMINOPHEN 500 MG TABLET (FP) PO ONE (20:00)
[2024-03-22] MEDS: LIDOCAINE PATCH REMOVAL MC SCH (22:29)
[2024-03-23] MEDS: methaDONE HCL 40 MG DISPERSABLE TABLET PO SCH (14:51)
[2024-03-25 07:17] VITALS: RESP 18
[2024-03-25 15:20] VITALS: BP 112/63; PULSE 61; TEMP 98.4
== END 2024-03-25 15:12 | disposition home or self-care (01) | DRG 137 ==
LOC: JER 16:55 → JERBED 21:59 → J7W 03-14 09:05
PROVIDERS: ADMIT Internal Medicine; ATTEND Internal Medicine
PROC: XW033E5 Introduction of Remdesivir Anti-infective into Peripheral Vein, Percutaneous Approach, New Technology Group 5 (ICD-10-PCS; principal; 2024-03-13)
DX: U07.1 COVID-19 (principal); E43 Unspecified severe protein-calorie malnutrition; D51.9 Vitamin B12 deficiency anemia, unspecified; G62.9 Polyneuropathy, unspecified; R64 Cachexia; E78.5 Hyperlipidemia, unspecified; F11.23 Opioid dependence with withdrawal; F14.10 Cocaine abuse, uncomplicated; I10 Essential (primary) hypertension; J45.909 Unspecified asthma, uncomplicated; T50.901A Poisoning by unspecified drugs, medicaments and biological substances, accidental (unintentional), initial encounter; Z59.00 Homelessness unspecified; Z68.1 Body mass index [BMI] 19.9 or less, adult; Y92.89 Other specified places as the place of occurrence of the external cause
CPT/HCPCS: 0241U-QW; 36415; 70450-TC; 71045-TC-FY; 72125-TC; 72192-TC; 80053; 80307; 81003; 82140; 82607; 82746; 82803; 82962; 83605; 83735; 84100; 84484; 85025; 85027; 85610; 85730; 86850; 86900; 86901; 87086; 93005; 93010; 99285-25; J0131; J0248

== ENCOUNTER 2024-05-21 02:47 | Emergency (ER) | payer OTHER ==
[2024-05-21 03:07] VITALS: BP 131/82; PULSE 82; RESP 19; TEMP 98.7; BMI 23.5
== END 2024-05-21 06:31 | disposition home or self-care (01) ==
LOC: JER 02:47
PROC: 0HQLXZZ Repair Left Lower Leg Skin, External Approach (ICD-10-PCS; principal; 2024-05-21)
DX: S90.912A Unspecified superficial injury of left ankle, initial encounter (principal); I83.891 Varicose veins of right lower extremity with other complications; R05.9 Cough, unspecified; X58.XXXA Exposure to other specified factors, initial encounter
CPT/HCPCS: 99283-25

== ENCOUNTER 2024-06-29 13:31 | Inpatient (IN) | payer MEDICARE, OTHER ==
[2024-06-29] MEDS ORDERED: VANCOMYCIN HCL 1,500 MG in DEXTROSE 5%-WATER - 500 ML IVPB ONE (14:16)
[2024-06-29] MEDS: VANCOMYCIN PREMIX 1.5 GM 1,500 MG/300 ML BAG IVPB ONE (15:09)
[2024-06-29 15:12] LABS: BASO % 0.2 % (0-2.0); HEMATOCRIT 30.5 % (35.4-49); HEMOGLOBIN 10.1 GM/dL (11.7-16.9); LYMPH % 8.5 % (8-40); MCH 25.5 pg (25.7-33.7); MCHC 33.1 g/dl (32.0-35.9); MEAN CELL VOLUME 77.1 fl (80-96); MEAN PLT VOLUME 7.4 fl (7.5-11.1); MONO % 11.4 % (3.8-10.2); NEUT % 79.9 % (42.8-82.8); PLATELET COUNT 244 10^3/uL (134-434); RBC 3.95 M/mm3 (4.00-5.60); RDW 17.5 % (11.9-15.9); WHITE BLOOD COUNT 8.8 K/mm3 (4.0-10.0)
[2024-06-29 15:38] LABS: POTASSIUM 3.4 mmol/L (3.5-5.1)
[2024-06-29 15:41] LABS: ALBUMIN 2.9 g/dl (3.4-5.0); BLOOD UREA NITROGEN 31.6 mg/dL (7-18)
[2024-06-29 15:44] LABS: CREATININE 1.5 mg/dL (0.55-1.3)
[2024-06-29 15:46] LABS: BILIRUBIN,TOTAL 0.5 mg/dL (0.2-1); TOT PROT 7.5 g/dl (6.4-8.2)
[2024-06-29 15:47] LABS: ERYTHROCYTE SEDIMENTATION RATE 106 mm/hr (0-20)
[2024-06-29] MEDS ORDERED: POTASSIUM CHLORIDE ORAL LIQUID 20 MEQ/15 ML ONE (16:46)
[2024-06-29] MEDS: POTASSIUM CHLORIDE ORAL LIQUID 20 MEQ/15 ML PO ONE (16:56)
[2024-06-29 18:42] VITALS: BMI 19.5
[2024-06-29] MEDS: SODIUM CHLORIDE 0.45% 1,000 ML IV SCH (18:53)
[2024-06-30] MEDS: ACETAMINOPHEN 325 MG TABLET (FP) PO PRN (01:40)
[2024-06-30] MEDS: methaDONE HCL 40 MG DISPERSABLE TABLET PO SCH (08:56)
[2024-06-30] MEDS: HEPARIN NA (PORCINE) 5,000 UNITS/ML 1ML VIAL SQ SCH (09:02)
[2024-06-30] MEDS: PANTOPRAZOLE 40 MG TABLET PO SCH (09:03)
[2024-06-30] MEDS ORDERED: methaDONE HCL 40 MG DISPERSABLE TABLET PO SCH (10:00)
[2024-06-30] MEDS: AZTREONAM 1 GM in DEXTROSE 5%-WATER - 50 ML IVPB SCH (13:01)
[2024-06-30] MEDS: DOXYCYCLINE INJECTION 100 MG in DEXTROSE 5%-WATER 100 ML IVPB SCH (13:07)
[2024-07-01 11:32] LABS: BASO % 0.7 % (0-2.0); EOS % 0.9 % (0-4.5); HEMATOCRIT 30.1 % (35.4-49); HEMOGLOBIN 9.8 GM/dL (11.7-16.9); LYMPH % 15.8 % (8-40); MCH 25.3 pg (25.7-33.7); MCHC 32.5 g/dl (32.0-35.9); MEAN CELL VOLUME 78.1 fl (80-96); MEAN PLT VOLUME 7.6 fl (7.5-11.1); MONO % 6.2 % (3.8-10.2); NEUT % 76.4 % (42.8-82.8); PLATELET COUNT 256 10^3/uL (134-434); RBC 3.85 M/mm3 (4.00-5.60); WHITE BLOOD COUNT 5.8 K/mm3 (4.0-10.0)
[2024-07-01 13:58] LABS: POTASSIUM 3.9 mmol/L (3.5-5.1)
[2024-07-01 14:01] LABS: BLOOD UREA NITROGEN 24.5 mg/dL (7-18); MAGNESIUM 1.9 mg/dL (1.8-2.4)
[2024-07-01 14:06] LABS: BILIRUBIN,TOTAL 0.2 mg/dL (0.2-1); TOT PROT 6.6 g/dl (6.4-8.2)
[2024-07-01 14:31] LABS: ALBUMIN 2.4 g/dl (3.4-5.0)
[2024-07-01] MEDS: AZTREONAM 1 GM in DEXTROSE 5%-WATER - 50 ML IVPB ONE (22:07)
[2024-07-01] MEDS: GABAPENTIN 100 MG CAPSULE PO SCH (22:08)
[2024-07-02] MEDS: PREGABALIN 75 MG CAPSULE PO SCH (15:10)
[2024-07-02] MEDS: MINERAL OIL/PET HY-PHL TOPICAL OINTMENT 454 GM JAR TP SCH (20:14)
[2024-07-03] MEDS: DOXYCYCLINE HYCLATE 100 MG CAPSULE PO SCH (09:33)
[2024-07-03 09:54] LABS: BASO % 0.7 % (0-2.0); EOS % 4.7 % (0-4.5); HEMATOCRIT 30.1 % (35.4-49); LYMPH % 20.6 % (8-40); MCH 25.8 pg (25.7-33.7); MCHC 33.2 g/dl (32.0-35.9); MEAN CELL VOLUME 77.7 fl (80-96); MEAN PLT VOLUME 7.3 fl (7.5-11.1); MONO % 5.4 % (3.8-10.2); NEUT % 68.6 % (42.8-82.8); PLATELET COUNT 346 10^3/uL (134-434); RBC 3.88 M/mm3 (4.00-5.60); RDW 17.4 % (11.9-15.9); WHITE BLOOD COUNT 6.4 K/mm3 (4.0-10.0)
[2024-07-03 10:11] LABS: POTASSIUM 4.1 mmol/L (3.5-5.1)
[2024-07-03 10:15] LABS: ALBUMIN 2.5 g/dl (3.4-5.0); CALCIUM 9.1 mg/dL (8.5-10.1)
[2024-07-03 10:16] LABS: BLOOD UREA NITROGEN 19.5 mg/dL (7-18); MAGNESIUM 1.8 mg/dL (1.8-2.4)
[2024-07-03 10:19] LABS: CREATININE 0.9 mg/dL (0.55-1.3)
[2024-07-03 10:21] LABS: TOT PROT 7.3 g/dl (6.4-8.2)
[2024-07-03 10:24] LABS: BILIRUBIN,TOTAL 0.4 mg/dL (0.2-1)
[2024-07-03] MEDS ORDERED: methaDONE HCL 40 MG DISPERSABLE TABLET PO SCH (13:40)
[2024-07-03] MEDS: PREGABALIN 100 MG CAPSULE PO SCH (21:57)
[2024-07-04] MEDS: methaDONE 40 MG, methaDONE 30 MG PO SCH (06:30)
[2024-07-04 09:41] LABS: BASO % 0.7 % (0-2.0); EOS % 5.5 % (0-4.5); HEMATOCRIT 31.4 % (35.4-49); HEMOGLOBIN 10.2 GM/dL (11.7-16.9); LYMPH % 27.6 % (8-40); MCH 25.4 pg (25.7-33.7); MCHC 32.5 g/dl (32.0-35.9); MEAN CELL VOLUME 78.2 fl (80-96); MEAN PLT VOLUME 7.2 fl (7.5-11.1); MONO % 7.3 % (3.8-10.2); NEUT % 58.9 % (42.8-82.8); PLATELET COUNT 412 10^3/uL (134-434); RBC 4.01 M/mm3 (4.00-5.60); RDW 17.6 % (11.9-15.9); WHITE BLOOD COUNT 4.6 K/mm3 (4.0-10.0)
[2024-07-04 10:01] LABS: POTASSIUM 4.6 mmol/L (3.5-5.1)
[2024-07-04 10:07] LABS: CALCIUM 9.2 mg/dL (8.5-10.1)
[2024-07-04 10:08] LABS: ALBUMIN 2.5 g/dl (3.4-5.0); BLOOD UREA NITROGEN 24.2 mg/dL (7-18); MAGNESIUM 1.8 mg/dL (1.8-2.4)
[2024-07-04 10:11] LABS: CREATININE 0.9 mg/dL (0.55-1.3)
[2024-07-04 10:12] LABS: BILIRUBIN,TOTAL 0.2 mg/dL (0.2-1); TOT PROT 7.2 g/dl (6.4-8.2)
[2024-07-04] MEDS: PREGABALIN 50 MG CAPSULE PO ONE (12:44)
[2024-07-04] MEDS: PREGABALIN 75 MG CAPSULE PO SCH (22:24)
[2024-07-05 10:36] LABS: HEMATOCRIT 33.9 % (35.4-49); LYMPH % 28.1 % (8-40); MCH 25.8 pg (25.7-33.7); MCHC 32.4 g/dl (32.0-35.9); MEAN CELL VOLUME 79.5 fl (80-96); MEAN PLT VOLUME 7.1 fl (7.5-11.1); MONO % 7.9 % (3.8-10.2); PLATELET COUNT 503 10^3/uL (134-434); RBC 4.26 M/mm3 (4.00-5.60); RDW 17.9 % (11.9-15.9); WHITE BLOOD COUNT 7.6 K/mm3 (4.0-10.0)
[2024-07-05 10:55] LABS: POTASSIUM 5.1 mmol/L (3.5-5.1)
[2024-07-05 11:05] LABS: BLOOD UREA NITROGEN 23.2 mg/dL (7-18)
[2024-07-05 11:06] LABS: CALCIUM 9.7 mg/dL (8.5-10.1)
[2024-07-05 11:07] LABS: ALBUMIN 2.8 g/dl (3.4-5.0); MAGNESIUM 1.8 mg/dL (1.8-2.4)
[2024-07-05 11:10] LABS: BILIRUBIN,TOTAL 0.2 mg/dL (0.2-1)
[2024-07-05 11:11] LABS: TOT PROT 8.1 g/dl (6.4-8.2)
[2024-07-06 09:46] LABS: BASO % 1.2 % (0-2.0); EOS % 5.9 % (0-4.5); HEMATOCRIT 28.2 % (35.4-49); HEMOGLOBIN 9.1 GM/dL (11.7-16.9); LYMPH % 30.3 % (8-40); MCH 25.6 pg (25.7-33.7); MCHC 32.2 g/dl (32.0-35.9); MEAN CELL VOLUME 79.3 fl (80-96); MONO % 8.4 % (3.8-10.2); NEUT % 54.2 % (42.8-82.8); PLATELET COUNT 396 10^3/uL (134-434); RBC 3.56 M/mm3 (4.00-5.60); RDW 18.3 % (11.9-15.9); WHITE BLOOD COUNT 5.1 K/mm3 (4.0-10.0)
[2024-07-06 10:10] LABS: POTASSIUM 4.6 mmol/L (3.5-5.1)
[2024-07-06 10:16] LABS: ALBUMIN 2.4 g/dl (3.4-5.0); BLOOD UREA NITROGEN 28.5 mg/dL (7-18); CALCIUM 8.6 mg/dL (8.5-10.1)
[2024-07-06 10:17] LABS: MAGNESIUM 1.9 mg/dL (1.8-2.4)
[2024-07-06 10:20] LABS: BILIRUBIN,TOTAL 0.3 mg/dL (0.2-1); TOT PROT 6.8 g/dl (6.4-8.2)
[2024-07-07 09:34] LABS: BASO % 1.3 % (0-2.0); EOS % 4.1 % (0-4.5); HEMATOCRIT 31.8 % (35.4-49); HEMOGLOBIN 10.2 GM/dL (11.7-16.9); LYMPH % 31.9 % (8-40); MCH 25.5 pg (25.7-33.7); MCHC 32.1 g/dl (32.0-35.9); MEAN CELL VOLUME 79.4 fl (80-96); MEAN PLT VOLUME 7.3 fl (7.5-11.1); MONO % 7.6 % (3.8-10.2); NEUT % 55.1 % (42.8-82.8); PLATELET COUNT 383 10^3/uL (134-434); RBC 4.01 M/mm3 (4.00-5.60); RDW 18.4 % (11.9-15.9)
[2024-07-07 09:52] LABS: BLOOD UREA NITROGEN 25.2 mg/dL (7-18); CALCIUM 9.2 mg/dL (8.5-10.1)
[2024-07-07 09:56] LABS: CREATININE 0.9 mg/dL (0.55-1.3)
[2024-07-08 01:52] VITALS: RESP 18
[2024-07-08 09:02] LABS: BASO % 0.9 % (0-2.0); EOS % 2.6 % (0-4.5); HEMATOCRIT 28.9 % (35.4-49); HEMOGLOBIN 9.6 GM/dL (11.7-16.9); MCH 26.3 pg (25.7-33.7); MCHC 33.3 g/dl (32.0-35.9); MEAN CELL VOLUME 78.9 fl (80-96); MEAN PLT VOLUME 7.1 fl (7.5-11.1); MONO % 10.1 % (3.8-10.2); NEUT % 62.4 % (42.8-82.8); PLATELET COUNT 380 10^3/uL (134-434); RBC 3.67 M/mm3 (4.00-5.60); RDW 18.6 % (11.9-15.9); WHITE BLOOD COUNT 5.7 K/mm3 (4.0-10.0)
[2024-07-08 09:17] LABS: POTASSIUM 4.9 mmol/L (3.5-5.1)
[2024-07-08 09:19] LABS: ALBUMIN 2.5 g/dl (3.4-5.0); BLOOD UREA NITROGEN 29.5 mg/dL (7-18); CALCIUM 9.3 mg/dL (8.5-10.1)
[2024-07-08 09:24] LABS: BILIRUBIN,TOTAL 0.2 mg/dL (0.2-1); TOT PROT 6.9 g/dl (6.4-8.2)
[2024-07-08] MEDS: HEPARIN NA (PORCINE) 5,000 UNITS/ML 1ML VIAL SQ SCH (22:13)
[2024-07-09 09:33] LABS: BASO % 1.2 % (0-2.0); EOS % 3.2 % (0-4.5); HEMATOCRIT 31.7 % (35.4-49); HEMOGLOBIN 10.2 GM/dL (11.7-16.9); LYMPH % 26.4 % (8-40); MCH 25.6 pg (25.7-33.7); MCHC 32.1 g/dl (32.0-35.9); MEAN CELL VOLUME 79.8 fl (80-96); MEAN PLT VOLUME 7.2 fl (7.5-11.1); MONO % 9.6 % (3.8-10.2); NEUT % 59.6 % (42.8-82.8); PLATELET COUNT 411 10^3/uL (134-434); RBC 3.97 M/mm3 (4.00-5.60); RDW 18.2 % (11.9-15.9); WHITE BLOOD COUNT 5.7 K/mm3 (4.0-10.0)
[2024-07-09 09:51] LABS: POTASSIUM 5.1 mmol/L (3.5-5.1)
[2024-07-09 10:19] LABS: BLOOD UREA NITROGEN 29.6 mg/dL (7-18); CALCIUM 9.4 mg/dL (8.5-10.1)
[2024-07-09 10:22] LABS: BILIRUBIN,TOTAL 0.2 mg/dL (0.2-1); CREATININE 0.9 mg/dL (0.55-1.3); MAGNESIUM 2.3 mg/dL (1.8-2.4)
[2024-07-09 10:23] LABS: TOT PROT 7.7 g/dl (6.4-8.2)
[2024-07-09 10:54] VITALS: BP 108/65; PULSE 71; TEMP 98.6
[2024-07-09] MEDS ORDERED: BACITRACIN ZINC 15 GM TUBE TOPICAL OINTMENT TP SCH (11:15)
[2024-07-09] MEDS: BACITRACIN ZINC 15 GM TUBE TOPICAL OINTMENT TP SCH (11:47)
== END 2024-07-09 14:33 | disposition home or self-care (01) | DRG 602 ==
LOC: JER 13:31 → JERBED 16:34 → J8W 18:13
PROVIDERS: ADMIT Internal Medicine; ATTEND Nurse Practitioner Family
DX: L03.116 Cellulitis of left lower limb (principal); E43 Unspecified severe protein-calorie malnutrition; F11.20 Opioid dependence, uncomplicated; Z59.00 Homelessness unspecified; Z68.1 Body mass index [BMI] 19.9 or less, adult; R64 Cachexia; J44.9 Chronic obstructive pulmonary disease, unspecified; J45.909 Unspecified asthma, uncomplicated; K21.9 Gastro-esophageal reflux disease without esophagitis; F19.90 Other psychoactive substance use, unspecified, uncomplicated; M54.9 Dorsalgia, unspecified; F17.210 Nicotine dependence, cigarettes, uncomplicated
CPT/HCPCS: 36415; 73590-TC-LT-FY; 73718-TC-LT; 80048; 80053; 82962; 83735; 85025; 85651; 86140; 87040; 87070; 87077; 87186; 87205; 93005; 93010; 93971-TC; 97116-GP; 97161-GP; 99284-25; 99285-25; J1644

== ENCOUNTER 2024-07-09 17:18 | Emergency (ER) | payer MEDICARE, OTHER ==
[2024-07-09 17:24] VITALS: RESP 18; BMI 20.3
[2024-07-09] MEDS ORDERED: DOXYCYCLINE HYCLATE 100 MG CAPSULE PO ONE (20:48)
[2024-07-09] MEDS: DOXYCYCLINE HYCLATE 100 MG CAPSULE PO ONE (21:00)
[2024-07-10 04:14] LABS: HIV INTERPRETATION NEGATIVE (NEGATIVE)
[2024-07-10 11:30] VITALS: BP 109/54; PULSE 56; TEMP 98.1
== END 2024-07-10 11:50 ==
LOC: JER 17:18
DX: F11.20 Opioid dependence, uncomplicated (principal); L03.116 Cellulitis of left lower limb; Z59.00 Homelessness unspecified
CPT/HCPCS: 36415; 86803; 87389; 87522; 99283-25

== ENCOUNTER 2024-07-10 12:30 | Inpatient (IN) | payer MEDICARE ==
[2024-07-10 14:29] VITALS: BMI 22.1
[2024-07-10] MEDS ORDERED: BENZONATATE 200 MG CAPSULE PO PRN (15:55)
[2024-07-10] MEDS ORDERED: POLYETHYLENE GLYCOL (HEALTHYLAX) 3350 17 GM PACKET PO PRN (15:55)
[2024-07-10] MEDS ORDERED: MAGNESIUM HYDROX 2400MG/30ML ORAL SUSPENSION 30 ML CUP PO PRN (15:55)
[2024-07-10] MEDS ORDERED: BENZOCAINE/MENTHOL (CHLORASEPTIC ) LOZENGE MM PRN (15:55)
[2024-07-10] MEDS ORDERED: LOPERAMIDE HCL 2 MG CAPSULE PO PRN (15:55)
[2024-07-10] MEDS ORDERED: guaiFENesin 600 MG TABLET.ER (FP) PO PRN (15:55)
[2024-07-10] MEDS ORDERED: NALOXONE (NARCAN) HCL 4 MG/0.1 ML SPRAY NS PRN (15:55)
[2024-07-10] MEDS: THIAMINE 100 MG TABLET PO SCH (21:30)
[2024-07-10] MEDS: MELATONIN 5 MG TABLETS PO SCH (21:30)
[2024-07-11] MEDS: DOXYCYCLINE HYCLATE 100 MG TABLET PO SCH (09:04)
[2024-07-11] MEDS: PRENATAL VITAMINS W/ FOLIC ACID TABLET (FP) PO SCH (09:04)
[2024-07-11] MEDS: methaDONE HCL 40 MG DISPERSABLE TABLET PO SCH (09:04)
[2024-07-11] MEDS: PANTOPRAZOLE 40 MG TABLET PO SCH (09:04)
[2024-07-11] MEDS: NICOTINE 21 MG/24 HOURS TOPICAL PATCH TD SCH (09:06)
[2024-07-11] MEDS: IBUPROFEN 600 MG TABLET (FP) PO PRN (12:20)
[2024-07-11] MEDS ORDERED: TUBERCULIN PPD 5 TU/0.1ML VIAL ID ONE (14:46)
[2024-07-11] MEDS: MAG HYDROX/AL HYDROX/SIMETH 30 ML UNIT-DOSE CUP PO PRN (17:11)
[2024-07-13] MEDS: NICOTINE POLACRILEX 2 MG GUM BUC PRN (16:55)
[2024-07-13] MEDS: DOXYCYCLINE HYCLATE 100 MG TABLET PO SCH (17:39)
[2024-07-16] MEDS: SULFAMETHOXAZOLE/TRIMETHOPRIM 800MG/160MG D.S. TABLET PO SCH (10:05)
[2024-07-16] MEDS: BACLOFEN 10 MG TABLET (FP) PO SCH (10:06)
[2024-07-16] MEDS: MELATONIN 5 MG TABLETS PO SCH (21:29)
[2024-07-17] MEDS: PETROLATUM,WHITE OINTMENT 3.5 OZ JAR TP SCH (13:53)
[2024-07-19] MEDS: IBUPROFEN 400 MG TABLET (FP) PO PRN (23:04)
[2024-07-22] MEDS: ACETAMINOPHEN 325 MG TABLET (FP) PO PRN (02:28)
[2024-07-23] MEDS: hydrOXYzine PAMOATE 25 MG CAPSULE (FP) PO PRN (16:55)
[2024-07-24] MEDS: FERROUS SO4 325 MG TABLET (FP) PO SCH (10:20)
[2024-07-24 11:31] LABS: HEMATOCRIT 26.9 % (35.4-49); HEMOGLOBIN 8.8 GM/dL (11.7-16.9); MCH 26.2 pg (25.7-33.7); MCHC 32.6 g/dl (32.0-35.9); MEAN CELL VOLUME 80.2 fl (80-96); MEAN PLT VOLUME 8.2 fl (7.5-11.1); PLATELET COUNT 175 10^3/uL (134-434); RBC 3.36 M/mm3 (4.00-5.60); RDW 19.7 % (11.9-15.9); WHITE BLOOD COUNT 3.6 K/mm3 (4.0-10.0)
[2024-07-25] MEDS ORDERED: methaDONE HCL 40 MG DISPERSABLE TABLET PO SCH (06:00)
[2024-07-25] MEDS: methaDONE 40 MG, methaDONE 30 MG PO SCH (06:13)
[2024-07-31] MEDS ORDERED: methaDONE HCL 40 MG DISPERSABLE TABLET PO SCH (09:20)
[2024-07-31] MEDS: CHOLECALCIFEROL (VIT D3) 400 UNIT (10 MCG) TABLET PO SCH (10:07)
[2024-07-31] MEDS: CYANOCOBALAMIN (VITAMIN B-12) 1000 MCG/1 ML VIAL IM SCH (10:30)
[2024-08-01] MEDS: methaDONE 40 MG, methaDONE 20 MG PO SCH (06:19)
[2024-08-01] MEDS ORDERED: guaiFENesin 600 MG TABLET.ER (FP) PO PRN (10:19)
[2024-08-01] MEDS ORDERED: BENZONATATE 200 MG CAPSULE PO PRN (10:19)
[2024-08-01] MEDS ORDERED: BISMUTH SUBSALICYLATE 262 MG/15 ML BTL PO PRN (10:19)
[2024-08-01] MEDS ORDERED: DICYCLOMINE HCL 10 MG CAPSULE PO PRN (10:19)
[2024-08-01] MEDS: ONDANSETRON *ODT* 4 MG TABLET SL PRN (10:47)
[2024-08-05] MEDS: PANTOPRAZOLE 40 MG TABLET PO SCH (21:17)
[2024-08-06 06:58] VITALS: TEMP 97.3
[2024-08-06 11:12] LABS: BASO % 0.8 % (0-2.0); EOS % 4.8 % (0-4.5); HEMATOCRIT 30.4 % (35.4-49); HEMOGLOBIN 9.9 GM/dL (11.7-16.9); MCH 26.4 pg (25.7-33.7); MCHC 32.4 g/dl (32.0-35.9); MEAN CELL VOLUME 81.6 fl (80-96); MONO % 11.6 % (3.8-10.2); NEUT % 60.8 % (42.8-82.8); PLATELET COUNT 205 10^3/uL (134-434); RBC 3.73 M/mm3 (4.00-5.60); WHITE BLOOD COUNT 5.5 K/mm3 (4.0-10.0)
[2024-08-06 11:30] LABS: POTASSIUM 4.4 mmol/L (3.5-5.1)
[2024-08-06 11:38] LABS: CALCIUM 9.3 mg/dL (8.5-10.1)
[2024-08-06 11:39] LABS: ALBUMIN 3.6 g/dl (3.4-5.0); BLOOD UREA NITROGEN 28.7 mg/dL (7-18)
[2024-08-06 11:42] LABS: CREATININE 1.1 mg/dL (0.55-1.3)
[2024-08-06 11:43] LABS: BILIRUBIN,TOTAL 0.4 mg/dL (0.2-1)
[2024-08-06 11:44] LABS: TOT PROT 7.5 g/dl (6.4-8.2)
[2024-08-06 12:38] VITALS: RESP 18
[2024-08-07 06:49] VITALS: BP 143/84; PULSE 72
[2024-08-07] MEDS: NALOXONE (NYS OPIOID OVERDOSE PROGRAM) 4 MG/0.1 ML SPRAY NS SCH (09:44)
== END 2024-08-07 12:50 | disposition home or self-care (01) | DRG 895 ==
LOC: YASAS 12:30 → Y5N 16:59
PROVIDERS: ADMIT Psychiatry & Neurology Pain Medicine; ATTEND Psychiatry & Neurology Pain Medicine
PROC: HZ42ZZZ Group Counseling for Substance Abuse Treatment, Cognitive-Behavioral (ICD-10-PCS; principal; 2024-07-10)
DX: F14.10 Cocaine abuse, uncomplicated (principal); F11.20 Opioid dependence, uncomplicated; F19.282 Other psychoactive substance dependence with psychoactive substance-induced sleep disorder; L03.116 Cellulitis of left lower limb; Z59.00 Homelessness unspecified; F17.210 Nicotine dependence, cigarettes, uncomplicated; E78.5 Hyperlipidemia, unspecified; I10 Essential (primary) hypertension; K21.9 Gastro-esophageal reflux disease without esophagitis; J44.9 Chronic obstructive pulmonary disease, unspecified; J45.20 Mild intermittent asthma, uncomplicated; M54.50 Low back pain, unspecified; G89.18 Other acute postprocedural pain; B18.2 Chronic viral hepatitis C; R29.6 Repeated falls; Z56.0 Unemployment, unspecified; Z88.0 Allergy status to penicillin
CPT/HCPCS: 36415; 80053; 80305; 80307; 82652; 84402; 84403; 85025; 85027; J0475; Q0162

== ENCOUNTER 2024-10-20 12:30 | Inpatient (IN) | payer OTHER ==
[2024-10-20] MEDS ORDERED: VANCOMYCIN 1 GM PREMIX (F) 1 GM/200 ML BAG ONE (14:20)
[2024-10-20] MEDS: VANCOMYCIN 1,000 MG in DEXTROSE 5%-WATER - 250 ML IVPB ONE (14:25)
[2024-10-20 14:28] LABS: INR 1.23 (0.83-1.09); PROTHROMBIN TIME (PATIENT) 13.4 SEC (9.7-13.0)
[2024-10-20 14:31] LABS: ACTIVATED PTT 34.9 SECONDS (25.2-36.5)
[2024-10-20 14:42] LABS: HEMATOCRIT 33.2 % (35.4-49); HEMOGLOBIN 11.3 GM/dL (11.7-16.9); MCH 26.9 pg (25.7-33.7); MCHC 34.1 g/dl (32.0-35.9); MEAN CELL VOLUME 78.9 fl (80-96); RBC 4.21 M/mm3 (4.00-5.60); RDW 14.3 % (11.9-15.9)
[2024-10-20 14:46] LABS: WHITE BLOOD COUNT 11.5 K/mm3 (4.0-10.0)
[2024-10-20 14:50] LABS: CALCIUM 9.1 mg/dL (8.5-10.1)
[2024-10-20 14:51] LABS: ALBUMIN 3.3 g/dl (3.4-5.0)
[2024-10-20 14:56] LABS: BILIRUBIN,TOTAL 0.4 mg/dL (0.2-1); TOT PROT 8.4 g/dl (6.4-8.2)
[2024-10-20 15:08] LABS: CREATININE 1.1 mg/dL (0.55-1.3)
[2024-10-20 15:52] LABS: ERYTHROCYTE SEDIMENTATION RATE 83 mm/hr (0-20)
[2024-10-20 17:39] VITALS: BMI 22.8
[2024-10-20] MEDS ORDERED: MEROPENEM 1 GM in DEXTROSE 5%-WATER 100 ML IVPB SCH (18:00)
[2024-10-20 18:10] LABS: HIV INTERPRETATION NEGATIVE (NEGATIVE)
[2024-10-20] MEDS: MEROPENEM-0.9% SODIUM CHLORIDE 1 GM/50 ML BAG IVPB SCH (18:10)
[2024-10-20] MEDS: AZTREONAM 1 GM in DEXTROSE 5%-WATER - 50 ML IVPB SCH ×2 (18:33→20:39)
[2024-10-20] MEDS: methaDONE HCL 10 MG TABLET PO ONE (18:36)
[2024-10-20] MEDS: MAG HYDROX/AL HYDROX/SIMETH 30 ML UNIT-DOSE CUP PO ONE (20:39)
[2024-10-20] MEDS ORDERED: VANCOMYCIN 1,000 MG in DEXTROSE 5%-WATER - 250 ML IVPB SCH (22:00)
[2024-10-20] MEDS: ACETAMINOPHEN 1000 MG/100 ML BAG IVPB PRN (23:30)
[2024-10-21] MEDS: PANTOPRAZOLE 40 MG TABLET PO ONE (01:12)
[2024-10-21] MEDS: MEROPENEM-0.9% SODIUM CHLORIDE 1 GM/50 ML BAG IVPB SCH ×3 (01:12→18:36)
[2024-10-21] MEDS: VANCOMYCIN/WATER FOR INJ (PEG) 1,000 MG/200 ML BAG IVPB SCH (01:13)
[2024-10-21] MEDS: KETOROLAC TROMETHAMINE 15 MG/ML VIAL IM ONE (02:56)
[2024-10-21] MEDS ORDERED: BUPIVACAINE HCL/PF 0.5% (5MG/ML) 10 ML VIAL ONE (07:27)
[2024-10-21] MEDS ORDERED: MIDAZOLAM HCL 2 MG/2 ML SINGLE DOSE VIAL ONE (08:04)
[2024-10-21] MEDS ORDERED: PROPOFOL 20 ML ONE ×2 (08:05→08:42)
[2024-10-21] MEDS ORDERED: ONDANSETRON 4 MG/2 ML VIAL IVPUSH PRN ×2 (08:15→09:17)
[2024-10-21] MEDS ORDERED: oxyCODONE HCL 5 MG TABLET PO PRN ×3 (08:15→09:17)
[2024-10-21] MEDS ORDERED: KETOROLAC TROMETHAMINE 30 MG/1 ML VIAL ONE (08:30)
[2024-10-21] MEDS ORDERED: ACETAMINOPHEN INJECTION 100 ML ONE (08:30)
[2024-10-21] MEDS: BUPIVACAINE HCL/PF 0.5% (5MG/ML) 10 ML VIAL IJ ONE (08:44)
[2024-10-21 09:15] LABS: BASO % 0.9 % (0-2.0); EOS % 4.3 % (0-4.5); HEMATOCRIT 27.9 % (35.4-49); HEMOGLOBIN 9.3 GM/dL (11.7-16.9); LYMPH % 20.1 % (8-40); MCH 26.6 pg (25.7-33.7); MCHC 33.4 g/dl (32.0-35.9); MEAN CELL VOLUME 79.5 fl (80-96); MONO % 12.3 % (3.8-10.2); NEUT % 62.4 % (42.8-82.8); PLATELET COUNT 292 10^3/uL (134-434); RBC 3.51 M/mm3 (4.00-5.60); RDW 14.4 % (11.9-15.9); WHITE BLOOD COUNT 5.3 K/mm3 (4.0-10.0)
[2024-10-21 09:19] LABS: POTASSIUM 4.1 mmol/L (3.5-5.1)
[2024-10-21 09:27] LABS: ALBUMIN 2.7 g/dl (3.4-5.0); BLOOD UREA NITROGEN 22.1 mg/dL (7-18); CALCIUM 8.6 mg/dL (8.5-10.1); MAGNESIUM 2.2 mg/dL (1.8-2.4)
[2024-10-21 09:31] LABS: PHOSPHOROUS 3.8 mg/dL (2.5-4.9)
[2024-10-21 09:32] LABS: TOT PROT 6.8 g/dl (6.4-8.2)
[2024-10-21 09:34] LABS: BILIRUBIN,TOTAL 0.2 mg/dL (0.2-1)
[2024-10-21] MEDS: AZTREONAM 1 GM in DEXTROSE 5%-WATER - 50 ML IVPB SCH ×3 (09:48→14:28)
[2024-10-21] MEDS: MEROPENEM 1 GM in DEXTROSE 5%-WATER 100 ML IVPB SCH ×2 (09:48→14:31)
[2024-10-21] MEDS: LACTATED RINGERS SOLUTION 1,000 ML IV SCH ×2 (09:49→12:47)
[2024-10-21] MEDS ORDERED: PANTOPRAZOLE 40 MG TABLET PO SCH (10:00)
[2024-10-21] MEDS ORDERED: methaDONE HCL 40 MG DISPERSABLE TABLET PO SCH (10:00)
[2024-10-21] MEDS ORDERED: VANCOMYCIN 1,000 MG in DEXTROSE 5%-WATER - 250 ML IVPB SCH (10:00)
[2024-10-21] MEDS: PANTOPRAZOLE 40 MG TABLET PO SCH (11:10)
[2024-10-21] MEDS: ACETAMINOPHEN 325 MG TABLET (FP) PO SCH (11:11)
[2024-10-21] MEDS ORDERED: VANCOMYCIN/WATER FOR INJ (PEG) 1,000 MG/200 ML BAG IVPB SCH (14:00)
[2024-10-21] MEDS: oxyCODONE HCL 5 MG TABLET PO PRN (14:13)
[2024-10-21] MEDS: methaDONE HCL 40 MG DISPERSABLE TABLET PO SCH (14:29)
[2024-10-21] MEDS: DOXYCYCLINE HYCLATE 100 MG CAPSULE PO SCH (18:36)
[2024-10-22 07:38] LABS: BASO % 1.1 % (0-2.0); EOS % 3.6 % (0-4.5); HEMATOCRIT 27.2 % (35.4-49); HEMOGLOBIN 9.3 GM/dL (11.7-16.9); LYMPH % 17.5 % (8-40); MCHC 34.1 g/dl (32.0-35.9); MEAN CELL VOLUME 79.2 fl (80-96); MEAN PLT VOLUME 7.1 fl (7.5-11.1); MONO % 7.8 % (3.8-10.2); PLATELET COUNT 256 10^3/uL (134-434); RBC 3.43 M/mm3 (4.00-5.60); RDW 14.3 % (11.9-15.9); WHITE BLOOD COUNT 5.7 K/mm3 (4.0-10.0)
[2024-10-22 07:54] LABS: POTASSIUM 4.2 mmol/L (3.5-5.1)
[2024-10-22 07:59] LABS: CALCIUM 8.5 mg/dL (8.5-10.1); MAGNESIUM 1.9 mg/dL (1.8-2.4)
[2024-10-22 08:01] LABS: ALBUMIN 2.4 g/dl (3.4-5.0); BLOOD UREA NITROGEN 20.7 mg/dL (7-18)
[2024-10-22 08:02] LABS: CREATININE 0.8 mg/dL (0.55-1.3)
[2024-10-22 08:03] LABS: BILIRUBIN,TOTAL 0.2 mg/dL (0.2-1); TOT PROT 6.4 g/dl (6.4-8.2)
[2024-10-22] MEDS: VANCOMYCIN 1 GM PREMIX (F) 1 GM/200 ML BAG IVPB SCH (11:55)
[2024-10-22] MEDS: KETOROLAC TROMETHAMINE 30 MG/1 ML VIAL IVPUSH PRN (16:34)
[2024-10-22] MEDS: oxyCODONE HCL 5 MG TABLET PO PRN (22:35)
[2024-10-23] MEDS: KETOROLAC TROMETHAMINE 30 MG/1 ML VIAL IVPUSH PRN (03:06)
[2024-10-23 08:08] LABS: BASO % 1.1 % (0-2.0); EOS % 4.6 % (0-4.5); HEMATOCRIT 30.4 % (35.4-49); HEMOGLOBIN 10.1 GM/dL (11.7-16.9); LYMPH % 31.2 % (8-40); MCH 26.7 pg (25.7-33.7); MCHC 33.3 g/dl (32.0-35.9); MEAN CELL VOLUME 80.2 fl (80-96); MEAN PLT VOLUME 7.4 fl (7.5-11.1); MONO % 10.3 % (3.8-10.2); NEUT % 52.8 % (42.8-82.8); PLATELET COUNT 287 10^3/uL (134-434); RBC 3.79 M/mm3 (4.00-5.60); RDW 13.9 % (11.9-15.9); WHITE BLOOD COUNT 4.2 K/mm3 (4.0-10.0)
[2024-10-23 08:18] LABS: POTASSIUM 4.4 mmol/L (3.5-5.1)
[2024-10-23 08:43] LABS: ALBUMIN 2.5 g/dl (3.4-5.0)
[2024-10-23 08:44] LABS: BILIRUBIN,TOTAL 0.3 mg/dL (0.2-1); BLOOD UREA NITROGEN 22.6 mg/dL (7-18)
[2024-10-23 08:45] LABS: CALCIUM 8.7 mg/dL (8.5-10.1); MAGNESIUM 2.2 mg/dL (1.8-2.4); TOT PROT 6.5 g/dl (6.4-8.2)
[2024-10-23 08:46] LABS: CREATININE 0.9 mg/dL (0.55-1.3)
[2024-10-24 04:01] VITALS: RESP 18
[2024-10-24 09:02] LABS: BASO % 0.8 % (0-2.0); EOS % 4.5 % (0-4.5); HEMATOCRIT 31.1 % (35.4-49); HEMOGLOBIN 10.6 GM/dL (11.7-16.9); LYMPH % 27.9 % (8-40); MCH 26.8 pg (25.7-33.7); MEAN CELL VOLUME 78.8 fl (80-96); MEAN PLT VOLUME 7.1 fl (7.5-11.1); NEUT % 58.8 % (42.8-82.8); PLATELET COUNT 309 10^3/uL (134-434); RBC 3.94 M/mm3 (4.00-5.60); RDW 14.1 % (11.9-15.9)
[2024-10-24 09:22] LABS: POTASSIUM 4.5 mmol/L (3.5-5.1)
[2024-10-24 09:29] LABS: CALCIUM 8.8 mg/dL (8.5-10.1)
[2024-10-24 09:30] LABS: ALBUMIN 2.9 g/dl (3.4-5.0); BLOOD UREA NITROGEN 25.9 mg/dL (7-18)
[2024-10-24 09:35] LABS: BILIRUBIN,TOTAL 0.3 mg/dL (0.2-1); TOT PROT 7.4 g/dl (6.4-8.2)
[2024-10-24 10:35] VITALS: BP 119/66; PULSE 88; TEMP 98.6
== END 2024-10-24 13:05 | disposition home or self-care (01) | DRG 603 ==
LOC: JER 12:30 → JERBED 14:57 → J7W 17:10
PROVIDERS: ADMIT Student in an Organized Health Care Education/Training Program
PROC: 0X9B0ZZ Drainage of Right Elbow Region, Open Approach (ICD-10-PCS; principal; 2024-10-21 08:00)
DX: L02.413 Cutaneous abscess of right upper limb (principal); F11.20 Opioid dependence, uncomplicated; E44.0 Moderate protein-calorie malnutrition; J44.9 Chronic obstructive pulmonary disease, unspecified; K21.9 Gastro-esophageal reflux disease without esophagitis; I10 Essential (primary) hypertension; F17.200 Nicotine dependence, unspecified, uncomplicated; Z68.22 Body mass index [BMI] 22.0-22.9, adult; N43.3 Hydrocele, unspecified; B95.62 Methicillin resistant Staphylococcus aureus infection as the cause of diseases classified elsewhere
CPT/HCPCS: 36415; 73070-TC-RT-FY; 76870-TC; 80053; 82977; 83036; 83735; 84100; 85025; 85610; 85651; 85730; 86140; 86803; 86850; 86900; 86901; 87040; 87070; 87075; 87186; 87205; 87389; 87522; 94760; 99285-25; J0131

== ENCOUNTER 2025-04-24 10:02 | Inpatient (IN) | payer OTHER ==
[2025-04-24 10:56] VITALS: BMI 24.0
[2025-04-24] MEDS ORDERED: BENZOCAINE/MENTHOL (CHLORASEPTIC ) LOZENGE MM PRN (11:45)
[2025-04-24] MEDS ORDERED: IBUPROFEN 600 MG TABLET (FP) PO PRN (11:45)
[2025-04-24] MEDS ORDERED: NICOTINE POLACRILEX 4 MG LOZENGE BC PRN (11:45)
[2025-04-24] MEDS ORDERED: MAGNESIUM HYDROX 2400MG/30ML ORAL SUSPENSION 30 ML CUP PO PRN (11:45)
[2025-04-24] MEDS ORDERED: guaiFENesin 600 MG TABLET.ER (FP) PO PRN (11:45)
[2025-04-24] MEDS ORDERED: LOPERAMIDE HCL 2 MG CAPSULE PO PRN (11:45)
[2025-04-24] MEDS ORDERED: BENZONATATE 200 MG CAPSULE PO PRN (11:45)
[2025-04-24] MEDS ORDERED: NALOXONE (NARCAN) HCL 4 MG/0.1 ML SPRAY NS PRN (11:45)
[2025-04-24] MEDS ORDERED: POLYETHYLENE GLYCOL (HEALTHYLAX) 3350 17 GM PACKET PO PRN (11:45)
[2025-04-24] MEDS: NICOTINE 21 MG/24 HOURS TOPICAL PATCH TD SCH (12:54)
[2025-04-24] MEDS: ACETAMINOPHEN 325 MG TABLET (FP) PO PRN (18:14)
[2025-04-24] MEDS: MAG HYDROX/AL HYDROX/SIMETH 30 ML UNIT-DOSE CUP PO PRN (18:15)
[2025-04-24] MEDS: MELATONIN 5 MG TABLETS PO SCH (21:42)
[2025-04-24] MEDS: THIAMINE 100 MG TABLET PO SCH (21:42)
[2025-04-24] MEDS: IBUPROFEN 400 MG TABLET (FP) PO PRN (23:50)
[2025-04-25] MEDS: hydrOXYzine PAMOATE 25 MG CAPSULE (FP) PO PRN (06:24)
[2025-04-25 07:11] VITALS: BP 148/75; PULSE 64; RESP 17; TEMP 97.8
[2025-04-25] MEDS ORDERED: PRENATAL VITAMINS W/ FOLIC ACID TABLET (FP) PO SCH (10:00)
[2025-04-25] MEDS ORDERED: LIDOCAINE 5% TOPICAL PATCH TP SCH (10:00)
[2025-04-25 10:29] LABS: MCHC 32.4 g/dl (32.3-36.5); MEAN CELL VOLUME 84.4 fl (79.0-92.2); MEAN PLT VOLUME 10.3 fl (9.4-12.4); RDW 13.7 % (12.2-16.4)
[2025-04-25 10:43] LABS: GLUCOSE,RANDOM 112.0 mg/dL (74-106)
[2025-04-25 10:44] LABS: TOT PROT 7.1 g/dl (6.4-8.2)
[2025-04-25 10:45] LABS: CO2 28.0 mmol/L (21-32)
[2025-04-25 10:49] LABS: SGOT/AST 23.0 U/L (5-34); SGPT/ALT 13.0 U/L (0-55)
[2025-04-25 10:57] LABS: CREATININE 1.25 mg/dL (0.55-1.3)
[2025-04-25 11:11] LABS: SYPHILIS W/ RPR CONF NON-REACTIVE (NONREACTIVE)
[2025-04-25 11:20] LABS: ALK PHOS 101.0 U/L (40-150)
[2025-04-25 11:47] LABS: HCV DIAGNOSTIC IN-HOUSE W/RFLX REACTIVE (NONREACTIVE)
[2025-04-25] MEDS ORDERED: LIDOCAINE PATCH REMOVAL MC SCH (22:00)
== END 2025-04-25 07:40 | disposition left against medical advice (07) | DRG 894 ==
LOC: YASAS 10:02 → SUATTDRO 10:02 → Y5N 12:18
PROVIDERS: ADMIT Student in an Organized Health Care Education/Training Program; ATTEND Psychiatry & Neurology Pain Medicine
PROC: HZ42ZZZ Group Counseling for Substance Abuse Treatment, Cognitive-Behavioral (ICD-10-PCS; principal; 2025-04-24)
DX: F11.20 Opioid dependence, uncomplicated (principal); F14.20 Cocaine dependence, uncomplicated; Z59.00 Homelessness unspecified; F17.210 Nicotine dependence, cigarettes, uncomplicated; F39 Unspecified mood [affective] disorder; E78.5 Hyperlipidemia, unspecified; I10 Essential (primary) hypertension; J44.9 Chronic obstructive pulmonary disease, unspecified; J45.20 Mild intermittent asthma, uncomplicated; K21.9 Gastro-esophageal reflux disease without esophagitis; Z56.0 Unemployment, unspecified; Z88.0 Allergy status to penicillin
CPT/HCPCS: 36415; 80053; 80307; 85027; 86780; 86803; 87522; 93005; 93010